=== PATIENT | female | born 1950 | race Caucasian/White ===

== ENCOUNTER 2023-03-20 09:03 | Outpatient (CLI) | payer MEDICARE, SELFPAY ==
--- NOTE | ~2023-03-20 | CT_ITS ---
CT Scan of the Chest without Contrast: Clinical Indication: Mediastinal mass Technique: Contiguous sections were acquired throughout the chest without intravenous contrast. Dose reduction technique was used on this scan by utilizing automated exposure control and iterative recon struction technique. The dose-length product (DLP) was 121.58 mGy-cm. Findings: Thyroid gland is prominent, with focal substernal extension. There is no evidence of any significant mediastinal, hilar or axillary lymphadenopathy. The mediastin al soft tissues otherwise appear normal. Small inferior pericardial effusion present. There is no evidence of pleural effusion. The lungs are clear, aside from minimal dependent atelectatic changes. Images through the upper abdomen reveal no abnormalities. Impression: Prominent thyroid gland with mild substernal extension. No other mediastinal mass evident. Small pericardial effusion. Reviewed, dictated and finalized at [facility]. Impression: Prominent thyroid gland with mild substernal extension. No other mediastinal mass evident. Small pericardial effusion.
== END 2023-03-20 09:04 | disposition home or self-care (01) ==
DX: R22.2 Localized swelling, mass and lump, trunk (principal); J90 Pleural effusion, not elsewhere classified
CPT/HCPCS: 71250

== ENCOUNTER 2023-08-13 10:43 | Emergency (ER) | payer MEDICARE, SELFPAY ==
[2023-08-13] VITALS (12 sets, daily range): BP systolic 119–159; BP diastolic 76–96; PULSE 86–107; RESP 16–30; TEMP 36.3; O2SAT 94–98
[2023-08-13 11:27] LABS: Basophils Percent Auto 0.5 % (0.2-1.2); Eosinophils Absolute Auto 0.1 K/mm3 (0-0.3); Eosinophils Percent Auto 0.8 % (0-4.4); Hematocrit 42.9 % (37.0-47.0); Hemoglobin 13.5 g/dL (12.0-15.0); Immature Granulocyte Absolute 0.02 K/mm3 (0.00-0.031); Immature Granulocyte Percent A 0.3 % (0-0.5); Lymphocytes Absolute Auto 1.51 K/mm3 (0.9-3.2); Lymphocytes Percent Auto 19.3 % (18.3-44.2); Mean Corpuscular HGB Conc 31.5 g/dl (32-36); Mean Corpuscular Hemoglobin 28.1 pg (26-34); Mean Corpuscular Volume 89.2 fl (80-100); Mean Platelet Volume 9.8 fl (7.4-10.4); Monocytes Absolute Auto 0.4 K/mm3 (0.1-0.6); Monocytes Percent Auto 5.1 % (2.6-8.5); Neutrophils Absolute Auto 5.8 K/mm3 (1.3-6.7); Platelet Count Result 322 k/mm3 (150-375); Red Blood Count 4.81 M/mm3 (4.2-5.4); Red Cell Distribution Width 13.5 % (11.5-14.5); White Blood Count 7.8 K/mm3 (4.5-10.0)
[2023-08-13 11:41] LABS: Alanine Aminotransferase 19 U/L (6-35); Albumin Level 4.6 g/dL (3.5-5.1); Alkaline Phosphatase 96 U/L (38-126); Anion Gap 15 mmol/L (8-16); Aspartate Amino Transferase 23 U/L (14-36); Bilirubin,Total 0.6 mg/dL (0.2-1.3); Blood Urea Nitrogen 25 mg/dL (7-17); Calcium 9.8 mg/dL (8.4-10.2); Carbon Dioxide 27 mmol/L (22-30); Chloride 100 mmol/L (98-107); Estimated CRCL calculation 38 ml/min; Estimated Glomerular Filt Rate > 60; Glucose 131 mg/dL (65-110); Lipase 138 U/L (23-300); Potassium 3.9 mmol/L (3.4-5.0); Sodium 142 mmol/L (137-145)
[2023-08-13 12:28] LABS: Appearance Urine Cloudy (Clear); Bacteria Urine 4+ /hpf; Bilirubin Urine 1+ (Negative); Blood Urine Negative (Negative); Color Urine Dark Yellow (Yellow); Glucose Urine UA Negative (Negative); Ketones Urine Trace mg/dL (Negative); Leukocyte Esterase Ur 2+ LEU/UL (Negative); Nitrate Urine Positive (Negative); Protein Urine 1+ mg/dL (Negative); RBC Urine 0-2 /hpf (0-2); Squamous Epithelial Cell Urine None seen /hpf (Few); WBC Urine >100 /hpf; pH Urine 5.5 (5.0-9.0)
[2023-08-13 12:32] LABS: Add Urine Microscopic? YES
--- NOTE | 2023-08-13 13:50 | ED.GENADULT ---
HPI - General Adult General Chief complaint: Nausea/Vomiting/Diarrhea Stated complaint: n/v, lethargy Time Seen by Provider: 08/13/23 13:30 History of Present Illness HPI narrative: Patient is a 73-year-old female who presents to the emergency department this morning from her extended care facility due to nausea and vomiting after eating her breakfast. Symptoms started today just after breakfast. Patient had 1 vomiting episode in the emergency department upon arrival which responded to Zofran patient has been stable since about. Patient is nonverbal at baseline with very little responses and son who is present at bedside states that this is how she normally is, some days are better than others. Patient does deny any pain at this time. The remainder the history of present illness and review of systems limited due the patient's current nonverbal status. Related Data Home Medications Medication Instructions Recorded Confirmed lisinopril 10 mg tablet mg 08/13/23 Allergies Allergy/AdvReac Type Severity Reaction Status Date / Time No Known Allergies Allergy Verified 08/13/23 11:13 Review of Systems Review of Systems: Unable to obtain a full review of systems secondary to the patient's current nonverbal status. Exam Narrative: General: Awake, afebrile, in no acute distress. HEENT: PERRL, no rhinorrhea, no post nasal drip, oropharynx clear. Neck: Trachea midline, no JVD, no lymphadenopathy. Cardiovascular: Regular rate and rhythm, no murmurs, rubs or gallops, no peripheral edema. Respiratory: Clear to auscultation bilaterally, no tachypnea, no wheezing, no rhonchi, no rubs, no respiratory distress. Abdomen: Soft, nontender, nondistended, no rebound, no guarding, no peritoneal signs. Musculoskeletal: No joint swelling or deformity, normal muscle tone. Skin: No rashes or petechia, no signs of infection. Psychiatric: Awake, normal behavior and judgment for situation. Neurological: Alert and oriented to person and place, non-verbal at baseline, however, she follows all commands and understands my instructions, nods or shakes her head. No focal deficits, spontaneously moving her extremities. Course Vital Signs Vital signs: Vital Signs Temperature 97.4 F L 08/13/23 10:43 Pulse Rate 96 08/13/23 10:43 Respiratory Rate 18 08/13/23 10:43 Blood Pressure 156/95 H 08/13/23 10:43 Pulse Oximetry 97 08/13/23 10:43 Temperature 97.4 F L 08/13/23 10:43 Pulse Rate 96 08/13/23 15:01 Respiratory Rate 17 08/13/23 15:01 Blood Pressure 120/86 08/13/23 15:01 Pulse Oximetry 97 08/13/23 15:01 Medical Decision Making MDM Narrative Medical decision making narrative: The patient was evaluated by myself in the emergency department. History is obtained from patient who is an independent historian and physical exam was performed. External medical records were reviewed at this time. IV was established and pertinent tests were ordered. Patient was administered 4 mg IV Zofran for nausea and vomiting. Laboratory results obtained revealing no acute process. Urinalysis revealed urinary tract infection With trace ketones and at this time patient was administered a 500 fluid bolus with NS and 1 g of IV Rocephin. Differential diagnosis considerations include Acute gastroenteritis, pancreatitis and cholecystitis however unlikely given normal lipase and a bilirubin and the lack of abdominal pain. addition of the factors include influenza and COVID. I have evaluated and discussed social determinants of health with the patient that could potentially impact subsequent diagnosis and treatment plans. On repeat assessment of the patient, reevaluation revealed that the patient is doing well and is in no acute distress. Patient symptoms have improved since she arrived to our emergency department. Repeat vital signs were all reviewed and noted to be stable. Differential diagnosis and treatment plan were disc
[2023-08-13] MEDS: ONDANSETRON INJ 4 MG/2 ML VIAL IV PUSH (13:54)
[2023-08-13] MEDS: SODIUM CHLORIDE 0.9% IV 500 ML 999 ML IV CONT (13:54)
[2023-08-13 14:48] LABS: Influenza A QL RT-PCR Negative (Negative); Influenza B QL RT-PCR Negative (Negative); RSV RNA, RT-PCR Negative (Negative); SARS-CoV-2 RNA PCR Negative (Negative)
--- NOTE | 2023-08-13 16:30 | PC.NURSE ---
SON ERLINDA RODARTE STATES HE IS UNABLE TO TAKE HIS MOTHER BACK TO [place] IN HIS VEHICLE. HE STATES SHE HAS NO CLOTHES AND HE WOULDN'T BE ABLE TO GET HER INTO HIS SUV. I EXPLAINED THAT WE COULD ASSIST INTO THE VEHICLE AND [facility] COULD HELP GET HER OUT AND I ALSO INFORMED HIM THAT SHE DOESN'T MEET [facility]ITER[facility] FOR MEDICAL NECESSITY TRANSPORTATION. HE STATED SHE WILL GET A BILL FOR THE RIDE IN SO WHAT IS THE DIFFERENCE IN GETTING A BILL FOR THE RIDE HOME? I ADVISED HIM ON THE DIFFERENCE ON EMS CALL VS ROUTINE TRANSPORT AND HE STILL REQUESTS THAT WE ARRANGE TRANSPORTATION. JAILENE CHARGE NURSE MADE AWARE.
== END 2023-08-13 17:30 ==
PROVIDERS: Student in an Organized Health Care Education/Training Program; Emergency Provider Emergency Medicine; PCP Hospitalist
DX: N39.0 Urinary tract infection, site not specified (principal); R11.2 Nausea with vomiting, unspecified; Z79.899 Other long term (current) drug therapy; Z20.822 Contact with and (suspected) exposure to COVID-19
CPT/HCPCS: 36415; 80053; 81001; 83690; 85025; 87077; 87086; 87186; 87637; 96365; 96375; 99284; J0696; J2405; J7040

== ENCOUNTER 2024-02-13 08:14 | Outpatient (CLI) | payer MEDICARE, SELFPAY ==
--- NOTE | ~2024-02-13 | CT_ITS ---
CT of the Abdomen and Pelvis: Indication: Abnormal weight loss Technique: 2.5 mm axial scans were obtained through the abdomen and pelvis following intravenous adm inistration of 100 cc of Omnipaque 350. Dose reduction technique was used on this scan by utilizing a utomated exposure control and iterative reconstruction technique. The dose-length product (DLP) was 4 30.03 mGy-cm. Findings: Scans through the lung bases demonstrates small pericardial effusion. The liver, spleen, adrenals and kidneys are within normal limits. Radiolucent gallstones present. The re is a 13 mm hypodense, possibly cystic mass at the pancreatic body (axial image 77). There are athe rosclerotic calcifications of the aorta. No lymphadenopathy. No bowel obstruction or bowel wall thickening. There is no evidence to suggest acute appendicitis. Images through the pelvis were performed. Urinary bladder unremarkable. No adnexal mass seen. No asci lucas. Impression: Cholelithiasis. 13 mm hypodense, possibly cystic mass of the pancreas body. This is most likely a low malignant poten tial lesion, however follow-up pre and postcontrast MR should be considered to further evaluate. Small pericardial effusion. Reviewed, dictated and finalized at [facility]. Impression: Cholelithiasis. 13 mm hypodense, possibly cystic mass of the pancreas body. This is most likely a low malignant potential lesion, however follow-up pre and postcontrast MR sh ould be considered to further evaluate. Small pericardial effusion.
[2024-02-13 08:45] LABS: Estimated Glomerular Filt Rate > 60
== END 2024-02-13 08:15 | disposition home or self-care (01) ==
LOC: ANHIMG 08:17
PROVIDERS: PCP Family Medicine; Visit Provider Nurse Practitioner Family
DX: K86.2 Cyst of pancreas (principal); I31.39 Other pericardial effusion (noninflammatory)
CPT/HCPCS: 74177; Q9967

== ENCOUNTER 2024-02-28 08:59 | Outpatient (CLI) | payer MEDICARE, SELFPAY ==
--- NOTE | ~2024-02-28 | MR_ITS ---
EXAMINATION: MR MRCP wo/w con/w 3D wo ind DATE: 02/28/2024 11:04 INDICATION: Cyst of pancreas. TECHNIQUE: Magnetic resonance imaging (MRI) of the abdomen was performed without and with 11 mL Multi Chava intravenous contrast. Sequences included coronal T2-weighted FS FSE, coronal T2-weighted FSE, a xial T1-weighted LAVA, coronal FS FIESTA, axial dual-echo T1-weighted SPGR, coronal lava-FLEX, sagitt al T2-weighted FSE, axial T2-weighted FSE, and axial DWI. Thick-slab T2-weighted FSE images were obta ined for magnetic resonance cholangiopancreatography (MRCP). Maximum intensity projection 3-D reconst ructions of the volumetric data were created by the technologist. Postcontrast sequences included cor onal LAVA-flex and time course of axial T1-weighted LAVA. COMPARISON: CT abdomen and pelvis 02/13/2024 FINDINGS: ABDOMEN MRI: The liver is normal. The gallbladder is normal in size and filled with gallstones. The s pleen is normal. There are approximately 3 cystic lesions of the pancreas measuring up to 18 mm. The largest cyst does not communicate with the main pancreatic duct. The pancreatic duct is normal in memo iber. There is thickening of the adrenal glands, likely benign. The kidneys are normal. There are no dilated loops of bowel. A small sliding hiatal hernia. ABDOMEN MRCP: The common duct is normal and measures 4 mm. No choledocholithiasis. IMPRESSION: 1. Cystic lesions of the pancreas measuring up to 18 mm. The differential diagnosis includes pseudocy st, intraductal papillary mucinous neoplasm (IPMN), mucinous cystic neoplasm (MCN), serous cystadenom a, and neuroendocrine tumor. Abdomen MRI without and with contrast is recommended 6 months. 2. Cholelithiasis. 3. Small sliding hiatal hernia. Reviewed, dictated and finalized at [facility]. IMPRESSION: 1. Cystic lesions of the pancreas measuring up to 18 mm. The differential diagn osis includes pseudocyst, intraductal papillary mucinous neoplasm (IPMN), mucin ous cystic neoplasm (MCN), serous cystadenoma, and neuroendocrine tumor. Abdome n MRI without and with contrast is recommended 6 months. 2. Cholelithiasis. 3. Small sliding hiatal hernia.
== END 2024-02-28 09:00 | disposition home or self-care (01) ==
PROVIDERS: PCP Family Medicine; Visit Provider Nurse Practitioner Family
DX: K86.2 Cyst of pancreas (principal); K80.20 Calculus of gallbladder without cholecystitis without obstruction; K44.9 Diaphragmatic hernia without obstruction or gangrene
CPT/HCPCS: 74183; 76376; A9577

== ENCOUNTER 2024-06-03 01:21 | Day surgery (SDC) | payer MEDICARE, SELFPAY ==
[2024-05-29 13:34] VITALS: BMI 21.0
[2024-06-03] VITALS (10 sets, daily range): BP systolic 111–142; BP diastolic 60–97; PULSE 70–106; RESP 18–24; TEMP 36.2; O2SAT 94–100
[2024-06-03] MEDS: fentaNYL CITRATE INJ (*CRX) 100 MCG/2 ML VIAL 25 MCG IV PUSH (11:59)
--- NOTE | 2024-06-03 12:00 | SUR.PREOP ---
Patient recieved from Juanita CALDERON from half-way. Patient taken back to the department and immediately began crying. Nods that she is not anxious or scared. I asked if she was hurting and she motioned to her left hip. Patient was helped to the stretcher and given warm blankets and pillows. I call the half-way and they said she has not fallen but can be tearful at times. Patient still crying and complaining of pain- new orders received.
--- NOTE | 2024-06-03 12:29 | WPDHPUPDATE1 ---
History and Physical Update Update Date/Time: 06/03/24 12:29 History and Physical has been reviewed, including an updated exam of the patient. There are NO changes in the patient's condition. Risks, benefits, and alternatives have been discussed and questions answered. Patient agrees to proceed with procedure.
[2024-06-03] MEDS: LACTATED RINGERS 1,000 ML 150 ML IV CONT (12:30)
--- NOTE | 2024-06-03 12:36 | WPDANESEPPF ---
Anes - Initial Pre Proc Eval Procedure: Operation Date: 06/03/24 13:00 Proposed Procedures p Esophagogastroduodenoscopy & Colonoscopy - Jasen Rivera MD Date/Time: 06/03/24 12:36 Surgeon: Jasen Rivera MD Pre Op Diagnosis: Anemia, Abnormal wt. loss Patient Data Age: 73 Gender: F Height: 1.57 m Weight: 47.1 kg Last Vital Signs Temp 97.1 F L 06/03/24 11:44 Pulse 70 06/03/24 11:44 Resp 18 06/03/24 11:44 BP 142/63 H 06/03/24 11:44 Pulse Ox 94 06/03/24 11:44 O2 Del Method Room Air 06/03/24 11:44 Allergies Allergy/AdvReac Type Severity Reaction Status Date / Time No Known Allergies Allergy Verified 06/03/24 11:42 Home Medications Medication Instructions Recorded Confirmed Type acetaminophen 650 mg 650 mg PO Q12H pain 01/31/24 06/03/24 History tablet,extended release bisacodyl 10 mg rectal suppository 10 mg RECTAL DAILY PRN Constipation 01/31/24 06/03/24 History bisacodyl 10 mg/30 mL enema (Fleet 5 mg RECTAL DAILY PRN Constipation 01/31/24 06/03/24 History Bisacodyl) cholecalciferol (vitamin D3) 10 10 mcg PO DAILY 01/31/24 06/03/24 History mcg (400 unit) capsule ferrous sulfate 325 mg (65 mg 325 mg PO DAILY 01/31/24 06/03/24 History iron) tablet glucagon HCl 1 mg solution for 1 mg subcut Q20M PRN Hypoglycemia 01/31/24 06/03/24 History injection (Glucagon (HCl) Emergency Kit) lisinopril 10 mg tablet 10 mg PO DAILY 01/31/24 06/03/24 History magnesium hydroxide 400 mg/5 mL 30 ml PO DAILY PRN Constipation 01/31/24 06/03/24 History oral suspension (Milk of Magnesia) multivitamin 1 tablet PO DAILY 01/31/24 06/03/24 History polyethylene glycol 3350 17 17 g PO DAILY 01/31/24 06/03/24 History gram/dose oral powder sennosides 8.6 mg capsule (senna) 8.6 mg PO DAILY 01/31/24 06/03/24 History atorvastatin 10 mg tablet 10 mg PO HS 05/29/24 06/03/24 History magnesium citrate (Citroma oral 300 ml PO DAILY PRN Constipation 05/29/24 06/03/24 History solution) phenol 1.4 % mucosal aerosol spray 2 spray mucous membrane Q2H PRN 05/29/24 06/03/24 History Sore Throat Patient hx anesthesia problems: none Family hx anesthesia problems: none Results Review: All pre-operative results and documents have been reviewed as part of the pre-operative evaluation. [facility] Past Medical History Medical History Diabetes Dysphagia History of hypertension Social History Social History Smoking status: Former smoker Alcohol intake: never Substance use: never Living arrangements: assisted Spiritual care concerns: No Anes - Eval Final PreProcedure Day of Procedure 06/03/24 12:36 Patient weight: normal Heart: regular rate and rhythm Lungs: clear to auscultation Airway: Mallampati scale class II Neurological: alert and oriented Last oral intake: >/= 8 hours ASA classification: III Emergent: no Anesthetic plan: proceed Anesthesia type and monitoring: general GIVS and standard monitoring Results Review: All pre-operative results and documents have been reviewed as part of the pre-operative evaluation. Informed Consent: The patient's anesthetic plan and its attendant risks and benefits were discussed with the patient/family/POA. Questions were solicited and answers provided to the satisfaction of the patient/family/POA.
--- NOTE | 2024-06-03 12:52 | SUR.OPER ---
EGD start 1241 end 1247, Colonoscopy start 1256
[2024-06-03] MEDS: racEPINEPHrine 2.25% NEBU SOLN 0.5 ML VIAL.NEB INHALATION (13:50)
[2024-06-03] MEDS: KETOROLAC 15 MG/ML VIAL (*BKC) IV PUSH (14:01)
--- NOTE | 2024-06-03 14:51 | SUR.PHASEII ---
1306: PT INTO RECOVERY WITH 6L SIMPLE FACE MASK, PT HAD SMALL LARYNGOSPASM, COMPOSING MACHINE OPERATOR JAW THRUST PT WITH PT RELIEF. DR TIAN MADE AWARE, NO NEW ORDERS. 1320: PT SLEEPING, AROUSES EASILY, 02 REMOVED AND REMAINS 100% ON ROOM AIR. PT OPENS EYES AND ABLE TO RESPOND HER NAME. 1330: PT HAD LARYNGOSPASM, PT REPOSITIONED AND 02 PUT BACK ON PT, PT RECOVERED QUICKLY, NURSE REMAINS AT BEDSIDE. PT AROUSES EASILY, GRIMACING, CRYING, AND COMPLAINING OF LOWER BACK PAIN. PT NOTICEABLY HOLDING BREATH WHILE CRYING. PT OFTEN REMINDED TO TAKE A BREATH. DR TIAN NOTIFIED AND NEW ORDERS RECEIVED. RESPIRATORY CALLED AND NOTIFIED OF NEW ORDERS. 1345: RESPIRATORY HERE, SEEING PT, AND GIVING MEDS ORDERED. DR TIAN HERE SEEING PT AND NEW ORDERS RECEIVED FOR PT PAIN. 1405: PT GIVEN TORADOL ORDERED. 1415: PT RESTING QUIETLY, 100% ON ROOM AIR, NO FURTHER LARYNGOSPASM OR HOLDING OF BREATH. DR JULIAN HERE SEEING PT. NO NEW ORDERS. 1440: ARCAELI CASINO CONTROLLER CALLED AND GIVEN REPORT, NOTIFIED OF PT'S PRIOR COMPLAINTS OF PAIN & TREATMENT OF PAIN, PT AT THIS TIME UP IN WHEELCHAIR & DRESSED WITHOUT ANY SIGNS OF DISCOMFORT, PT BREATHING ADEQUATELY WITHOUT CONCERNS, ARACELI NOTIFIED OF PT PROCEDURE FINDINGS AND DISCHARGE INSTRUCTIONS, STATES UNDERSTANDING AND THAT PT IS OFTEN TEARY AT FACILITY. AWAITING PT RIDE AT THIS TIME. 1500: PT DISCHARGED PER [facility] WITH DISCHARGE INSTRUCTIONS.
== END 2024-06-03 15:00 | disposition home or self-care (01) ==
PROVIDERS: PCP Family Medicine; Referring Provider Nurse Practitioner Family; Visit Provider Internal Medicine Gastroenterology
PROC: 0DJ08ZZ Inspection of Upper Intestinal Tract, Via Natural or Artificial Opening Endoscopic (ICD-10-PCS; CPT 43235; principal; 2024-06-03 13:00)
DX: D64.9 Anemia, unspecified (principal); D12.2 Benign neoplasm of ascending colon; D12.3 Benign neoplasm of transverse colon; K57.30 Diverticulosis of large intestine without perforation or abscess without bleeding; F03.90 Unspecified dementia, unspecified severity, without behavioral disturbance, psychotic disturbance, mood disturbance, and anxiety; K22.2 Esophageal obstruction; K44.9 Diaphragmatic hernia without obstruction or gangrene; E11.9 Type 2 diabetes mellitus without complications; I10 Essential (primary) hypertension; Z87.891 Personal history of nicotine dependence
CPT/HCPCS: 45385; 43249; 88305; 94640; C1726; J1596; J1885; J2704; J3010; J7120

== ENCOUNTER 2025-05-16 21:22 | Emergency (ER) | payer MEDICARE, SELFPAY ==
[2025-05-16] VITALS (12 sets, daily range): BP systolic 129–159; BP diastolic 64–75; PULSE 67–100; RESP 12–21; TEMP 36.8; O2SAT 92–97
--- NOTE | ~2025-05-16 | CT_ITS ---
CT of the Abdomen and Pelvis: Indication: Abdominal pain Technique: 2.5 mm axial scans were obtained through the abdomen and pelvis following intravenous adm inistration of 100 cc of Omnipaque 350. Dose reduction technique was used on this scan by utilizing a utomated exposure control and iterative reconstruction technique. The dose-length product (DLP) was 6 17.27 mGy-cm. COMPARISON: 02/13/2024 Findings: Scans through the lung bases are unremarkable. Cholelithiasis noted. There is probable minimal intrahepatic biliary dilatation. Common bile duct is nondilated. The spleen, adrenals and kidneys are within normal limits. There is a 9 mm cystic mass at the pancreatic body/tail junction. No evidence of aortic aneurysm. No lymphadenopathy. No bowel obstruction or bowel wall thickening. There is no evidence to suggest acute appendicitis. Images through the pelvis were performed. Urinary bladder unremarkable. No pelvic mass seen. No ascit es. Impression: Cholelithiasis. Minimal intrahepatic biliary dilatation, nonspecific. Correlate with LFTs. 9 mm cystic mass of the pancreas, as detailed above, stable from prior exam, most likely benign. Reviewed, dictated and finalized at location . Impression: Cholelithiasis. Minimal intrahepatic biliary dilatation, nonspecific. Correlate with LFTs. 9 mm cystic mass of the pancreas, as detailed above, stable from prior exam, mo st likely benign.
--- NOTE | 2025-05-16 21:37 | ED_ITS ---
HPI - Nausea/Vomiting/Diarrhea General Chief complaint: Nausea/Vomiting/Diarrhea Stated complaint: N/V AFTER DINNER Time Seen by Provider: 05/16/25 21:26 History of Present Illness HPI Narrative: 74-year-old female with history of hypertension, diabetes, hiatal hernia and esophageal ring seen on endoscopy last year. Patient presents to the emergency department with abdominal discomfort nausea vomiting. Patient states that her symptoms started this afternoon. She was eating dinner. Noticed that she was feeling nauseous and vomited several times. Had some diffuse abdominal discomfort but mostly points in her periumbilical region. No chest pain shortness a breath. No fever chills. No flank pain. No traumatic injuries. She was otherwise in her normal state of health. Patient resides at a skilled care facility at this time. Slow to respond to questions but not having any neurological deficits otherwise. Related Data Home Medications ?Medication ?Instructions ?Recorded ?Confirmed ?Last Taken ?Type acetaminophen 650 mg 650 mg PO Q12H pain 01/31/24 06/03/24 06/02/24 History tablet,extended release bisacodyl 10 mg rectal suppository 10 mg RECTAL DAILY PRN Constipation 01/31/24 06/03/24 06/02/24 History bisacodyl 10 mg/30 mL enema (Fleet 5 mg RECTAL DAILY PRN Constipation 01/31/24 06/03/24 06/02/24 History Bisacodyl) cholecalciferol (vitamin D3) 10 10 mcg PO DAILY 01/31/24 06/03/24 06/02/24 History mcg (400 unit) capsule ferrous sulfate 325 mg (65 mg 325 mg PO DAILY 01/31/24 06/03/24 06/02/24 History iron) tablet glucagon HCl 1 mg solution for 1 mg subcut Q20M PRN Hypoglycemia 01/31/24 06/03/24 06/02/24 History injection (Glucagon (HCl) Emergency Kit) lisinopril 10 mg tablet 10 mg PO DAILY 01/31/24 06/03/24 06/02/24 History magnesium hydroxide 400 mg/5 mL 30 ml PO DAILY PRN Constipation 01/31/24 06/03/24 06/02/24 History oral suspension (Milk of Magnesia) multivitamin 1 tablet PO DAILY 01/31/24 06/03/24 06/02/24 History polyethylene glycol 3350 17 17 g PO DAILY 01/31/24 06/03/24 06/02/24 History gram/dose oral powder sennosides 8.6 mg capsule (senna) 8.6 mg PO DAILY 01/31/24 06/03/24 06/02/24 History atorvastatin 10 mg tablet 10 mg PO HS 05/29/24 06/03/24 06/02/24 History magnesium citrate (Citroma oral 300 ml PO DAILY PRN Constipation 05/29/24 06/03/24 06/02/24 History solution) phenol 1.4 % mucosal aerosol spray 2 spray mucous membrane Q2H PRN 05/29/24 06/03/24 06/02/24 History Sore Throat Allergies Allergy/AdvReac Type Severity Reaction Status Date / Time No Known Allergies Allergy Verified 06/03/24 11:42 Review of Systems 2 Review of Systems: As reviewed above in [facility] Past Medical History Medical History Dysphagia History of hypertension Diabetes Social History Social History Smoking status: Former smoker Alcohol intake: never Substance use: never Living arrangements: [facility] Spiritual care concerns: No Exam 2 Narrative: GENERAL: [Well-appearing, well-nourished, and in no acute distress.] HEAD: [Normocephalic, atraumatic.] EYES: [PERRLA and EOMI.] ENT: Nares clear, no rhinorrhea or epistaxis. Mucous membranes moist. NECK: Supple. CHEST: [Clear to auscultation. No respiratory distress.] HEART: [Regular rate and rhythm]. No murmur heard. [Normal peripheral pulses.] ABDOMEN: Soft and nondistended, mildly tender in the periumbilical region, no rigidity or guarding EXTREMITIES: Normal range of motion. [No edema.] SKIN: Warm, dry, no rash. NEURO: [No focal deficits]. Alert and oriented [x3.] PSYCH: [Normal mood and affect.] Course Vital Signs Vital signs: Vital Signs Temperature 36.8 C 05/16/25 21:23 Pulse Rate 70 05/16/25 21:23 Respiratory Rate 20 05/16/25 21:23 Blood Pressure 129/64 05/16/25 21:23 Pulse Oximetry 96 05/16/25 21:23 Oxygen Delivery Room Air 05/16/25 21:23 Temperature 36.8 C 05/16/25 21:23 Pulse Rate 78 05/17/25 03:06 Respiratory Rate 18 05/17/25 03:06 Blood Pressure 149/78 H 05/17/25 03:06 Pulse Oximetry 100 05/17/25 03:06 Oxygen Delivery Room Air 05/16/25 21:23 MDM - Nausea/Vomiting/Diarrhea MDM Narrative Medical decision making narrative: 74-year-old female with history of hypertension, diabetes, hiatal hernia and esophageal ring seen on endoscopy last year. Patient presents to the emergency department with abdominal discomfort nausea vomiting. Patient states that her symptoms started this afternoon. She was eating dinner. Noticed that she was feeling nauseous and vomited several times. Had some diffuse abdominal discomfort but mostly points in her periumbilical region. No chest pain shortness a breath. No fever chills. No flank pain. No traumatic injuries. She was otherwise in her normal state of health. Patient resides at a skilled care facility at this time. Slow to respond to questions but not having any neurological deficits otherwise. Patient is not in any acute physical or respiratory distress with normal vital signs here. No tachycardia, fever, hypoxemia or blood pressure concerns. Minimally tender in the periumbilical region. No chest pain shortness a breath. No rigidity or guarding her abdomen is soft and nondistended. Suspect gastroenteritis, gastritis, low suspicion intra-abdominal infectious process such as appendicitis, cholecystitis, diverticulitis. Given patient's age and risk factors a broad workup was ordered including CBC, CMP, lipase, urinalysis. CT scan with IV contrast obtained of the abdomen pelvis. She was given morphine fluids and Zofran. CT scan of the abdomen pelvis shows some cholelithiasis and a small hiatal hernia with diverticulosis without diverticulitis. No bowel obstruction. No acute findings overall per radiology interpretation. Workup shows a slight leukocytosis but no anemia. Normal platelet count. Electrolytes are unremarkable. Normal creatinine. LFTs are mildly elevated, lipase is normal. Urinalysis negative for infection. Patient was re-evaluated and comfortable in the bed. She did not actually get any pain control medications such as the morphine that was ordered given that she stated she was no longer having any pain upon nurse arrival. Has not had recurrence of symptoms and has not read store vomited while in the emergency department. Patient does have mildly elevated LFTs and evidence of gallstones without cholecystitis. She will have to follow up with General surgery and given clinic information. Given return precautions and prescriptions for Zofran and Bentyl as needed. Safe for discharge at this time. Given return precautions. Medical Records Attestation: I reviewed the patient's medical records. Lab Data Attestation: I reviewed the patient's lab results. 05/16/25 22:27 05/16/25 22:27 Labs: Lab Results 05/16/25 05/17/25 Range/Units 22:27 00:13 WBC 12.5 H (4.5-10.0) K/mm3 RBC 4.33 (4.2-5.4) M/mm3 Hgb 12.1 (12.0-15.0) g/dL Hct 38.9 (37.0-47.0) % MCV 89.8 (80-100) fl MCH 27.9 (26-34) pg MCHC 31.1 L (32-36) g/dl RDW 13.6 (11.5-14.5) % Plt Count 245 (150-375) k/mm3 MPV 9.3 (7.4-10.4) fl Immature Gran % (Auto) 0.4 (0-0.5) % Neut % (Auto) 87.8 H (45.5-73.1) % Lymph % (Auto) 5.7 L (18.3-44.2) % [place] % (Auto) 5.4 (2.6-8.5) % Eos % (Auto) 0.2 (0-4.4) % Baso % (Auto) 0.5 (0.2-1.2) % Lymph # (Auto) 0.71 L (0.9-3.2) K/mm3 [place] # (Auto) 0.7 H (0.1-0.6) K/mm3 Eos # (Auto) 0.0 (0-0.3) K/mm3 Baso # (Auto) 0.1 (0.0-0.1) K/mm3 Abs Immat Gran (auto) 0.05 H (0.00-0.031) K/mm3 Absolute Neuts (auto) 11.0 H (1.3-6.7) K/mm3 Absolute Nucleated RBC 0.000 (0.0-0.012) K/mm3 Nucleated RBC % 0.0 (0.0-0.2) % Sodium 137 (137-145) mmol/L Potassium 3.8 (3.4-5.0) mmol/L Chloride 104 (98-107) mmol/L Carbon Dioxide 25 (22-30) mmol/L Anion Gap 8 (4-12) mmol/L BUN 21 H (7-17) mg/dL Creatinine 0.78 (0.7-1.0) mg/dL Estim Creat Clear Calc 43 ml/min Estimated GFR > 60 (59 - ) Glucose 177 H (65-110) mg/dL Calcium 8.8 (8.4-10.2) mg/dL Total Bilirubin 0.7 (0.2-1.3) mg/dL AST 437 H (14-36) U/L ALT 212 H (6-35) U/L Alkaline Phosphatase 134 H (38-126) U/L Total Protein 7.1 (6.3-8.2) g/dL Albumin 4.0 (3.5-5.1) g/dL Lipase 107 (23-300) U/L Urine Color Yellow (Yellow) Urine Appearance Clear (Clear) Urine pH 8.0 (5.0-9.0) Ur Specific [place] 1.019 (1.001-1.035) Urine Protein Negative (Negative) mg/dL Urine Glucose (UA) Negative (Negative) mg/dL Urine Ketones Negative (Negative) mg/dL Ur Blood (Man) Negative (Negative) Urine Nitrate Negative (Negative) Urine Bilirubin Negative (Negative) Urine Urobilinogen 1.0 (<2.0) mg/dL Leukocyte Esterase Rfl Negative (Negative) KARISSA/UL Imaging Data Attestation: I personally reviewed and interpreted this imaging study as follows: My impression: No acute finding. Gallstones, small hiatal hernia, diverticulosis. Discharge Plan Discharge Clinical Impression: Symptomatic cholelithiasis, Elevated LFTs Patient Disposition: Home Condition: Stable Instructions: Antibiotic Form, Biliary Colic (ED), Gallstones (ED), Clear Liquid Diet (ED), Acute Nausea and Vomiting (ED), Abdominal Pain (ED) Additional Instructions: You have some gallstones that do not seem to be infected or causing any sort of significant obstruction. No signs of cholecystitis. Your liver function panel is mildly elevated secondary to the gallstones. No acute abnormal findings on the CT scan otherwise. Symptoms are controlled at this time and you can safely go home and follow-up with the general surgeon regarding the gallstones for elective surgery if needed. If you have recurrence of symptoms, severe pain, intractable nausea vomiting, fevers or any other concerns please return to the emergency department at that time. Maintain a bland/liquid diet for better symptom control as symptoms will recur with eating heavy or greasy foods. Patient Language: Singaporean Prescriptions: New dicyclomine 20 mg tablet 20 mg PO TID PRN (Reason: abdominal pain) Qty: 14 0RF ondansetron 4 mg tablet,disintegrating 4 mg PO Q8H PRN (Reason: nausea and vomiting) Qty: 20 0RF No Action acetaminophen 650 mg tablet extended release 650 mg PO Q12H bisacodyl 10 mg suppository 10 mg RECTAL DAILY PRN (Reason: Constipation) ferrous sulfate 325 mg (65 mg iron) tablet 325 mg PO DAILY Fleet Bisacodyl 10 mg/30 mL enema 5 mg RECTAL DAILY PRN (Reason: Constipation) lisinopril 10 mg tablet 10 mg PO DAILY glucagon HCl [Glucagon (HCl) Emergency Kit] 1 mg recon soln 1 mg subcut Q20M PRN (Reason: Hypoglycemia) Rx Instructions: until target blood sugar attained magnesium hydroxide [Milk of Magnesia] 400 mg/5 mL suspension 30 ml PO DAILY PRN (Reason: Constipation) multivitamin Tablet 1 tablet PO DAILY polyethylene glycol 3350 17 gram/dose powder 17 g PO DAILY senna 8.6 mg capsule 8.6 mg PO DAILY cholecalciferol (vitamin D3) 10 mcg (400 unit) capsule 10 mcg PO DAILY atorvastatin 10 mg tablet 10 mg PO HS magnesium citrate [Citroma] Solution 300 ml PO DAILY PRN (Reason: Constipation) Chloraseptic Mouth Pain [place] 1.4 % Aerosol,[place] 2 spray MUCOUS MEMBRANE Q2H PRN (Reason: Sore Throat) Follow-up/Referrals: Shad Titus MD [Primary Care Provider] - Cm King DO [Physician] - 1 Week (Symptomatic cholelithiasis) Time of Disposition: 01:51
[2025-05-16] MEDS: LACTATED RINGERS 1,000 ML 999 ML IV CONT (21:43)
--- OUTSIDE RECORDS SUMMARY | 2025-05-16 22:22 | XMS_ITS | Clinical Summary ---
Author Organization [facility] [employer] Address [address] [place] [address] Care Team Providers Care Biodiesel Product Development Manager Name Role Phone Jimmy Ortiz MD Primary Care Provider [phone] Source Comments [facility] [employer],non-owned Affiliates and Associated Physician Practices is amultiple site organization consisting of ambulatory clinics and hospital sitesin [place], [place], [place] and [place]. This disclosure is being madepursuant to the Care Everywhere program and may not contain all information available regarding this patient. Last updated 18.[employer] Allergies No known active allergies Medications * Be aware that medications may not be up to date on this document. Alwaysverify current medications with the patient. acetaminophen (Tylenol) 325 MG tablet Take 2 (two) tablets by mouth every 6 hours as needed Maximum allowable Acetaminophen amount = 4 Grams (4000 mg) / 24 hours. 2 Active lisinopril (Prinivil; Zestril) 10 MG tablet Take 1 (one) tablet by mouth once daily 2 Active polyethylene glycol 3350 (Miralax) 17 g packet Take 17 (seventeen) g by mouth once daily 2 Active senna-docusate (Senokot-S) 8.6-50 MG tablet Take 1 (one) tablet by mouth once daily 2 Active alendronate (Fosamax) 10 MG tablet Take 1 (one) tablet by mouth daily before breakfast 2 Active Additional Information Patient not taking.Reported on 11/12/2022 vitamin D3 (Cholecalcifer ol) 25 MCG (1000 UNITS) tablet Take 1 (one) tablet by mouth once daily 2 Active ferrous sulfate 325 (65 FE) MG tablet Take 1 (one) tablet by mouth once daily Active Active Problems Problem Noted Date Diagnosed Date Age-related osteoporosis with current pathologic al fracture 06/29/2022 Elevated blood pressure reading 06/24/2022 Fall 06/24/2022 Closed displaced fracture of surgical neck of le ft humerus 06/24/2022 Family History Medical History Relation Name Comments Dementia Mother Relation Name Status Comments Mother Social History Tobacco Use Types Packs/Day Years Used Date Smoking Tobacco: Never Cigarettes Smokeless Tobacco: Never Snuff Tobacco Cessation:Counseling Given: Not Answered AUDIT-C Answer Date Recorded Q1: How often do you have a drink containing alcohol? Never 06/25/2022 Q2: How many drinks containi ng alcohol do you have on a typical day when you are drinking? Patient does not drink Q3: How often do you have si x or more drinks on one occasion? 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 Height 157.5 cm (5' 2) 06/24/2022 2:00 PM CDT Body Mass Index 22.86 06/24/2022 2:00 PM CDT Plan of Treatment Health Maintenance Due Date Last Done Comments BONE DENSITY TESTING 1950 COLOGUARD (AGES 45-75) - COL ON CA SCREENING 1949 COLON MONITORING 1949 COLONOSCOPY - COLON CA SCREENING 1949 CT COLONOGRAPHY - COLON CA SCREENING 1950 Colorectal Cancer Screening 1949 FIT - COLON CA SCREENING 1949 FLEX SIG - COLON CA SCREENING 1949 LIPID TESTING 1950 MAMMOGRAM 1950 MEDICARE AWV 12 MONTHS 1949 HEPATITIS C SCREENING 08/01/1967 DTAP/TDAP/TD VACCINES (1 - Tdap) 1968 PNEUMOCOCCAL VACCINE 50+ (1 of 1 - PCV) 1999 ZOSTER VACCINE (1 of 2) 1999 COVID-19 VACCINE ( - 2023-2 5 season) 2024 Respiratory Syncytial Virus (RSV) Vaccine Pt: or over 60 yrs (1 - 1-dose 75+ series) 2024 DEPRESSION SCREENING 09/30/2024 INFLUENZA VACCINE (#1) 2025 11/02/2022 HEPATITIS B VACCINE Aged Out No longe r eligible based on patient's age to complete this topic HIB VACCINE Aged Out No longer eligi ble based on patient's age to complete this topic HPV VACCINE Aged Out No longer eligi ble based on patient's age to complete this topic MENINGOCOCCAL (Group B) VACC INE SHARED DECISION-MAKING Aged Out No longer eligibl e based on patient's age to complete this topic MENINGOCOCCAL GROUPS A/C/Y/W VACCINE Aged Out No longer eligible b ased on patient's age to complete this topic Insurance MEDICARE Member Subscriber Plan / Payer (Ef fective for All Dates) Name:Tamiko Nick Member ID:[id number] Relation to Subscriber:Self Name:Tamiko Nick Subscriber ID:[id number] Payer ID:Not on file Group ID:Not on file Type:Medicare Address: [facility] [address] [phone] ANTHEM SELF PAY NO INSURANCE Member Subscriber Plan / Payer (Ef fective for All Dates) Name:Juli Nickindio Anderson Member ID:Not on file Relation to Subscriber:Not on file Name:SANDOVALTAMIKO BRADLEY Subscriber ID:Not on file (Home) Address: [address] [place] [phone] Payer ID:Not on file Group ID:Not on file Type:Self Pay Address: [place], [place] MEDICARE Advance Directives * Full Code (Latest Code Status on File) Date Activated Date Inactivated Comments 06/24/2022 5:09 PM 06/29/2022 5:44 PM Care Teams Biodiesel Product Development Manager Relationship Specialty Start Date End Date Jimmy Ortiz MD [address] [place] [address] PCP - General Internal Medicine 06/24/22
[2025-05-16 22:35] LABS: Hematocrit 38.9 % (37.0-47.0); Hemoglobin 12.1 g/dL (12.0-15.0); Immature Granulocyte Percent A 0.4 % (0-0.5); Lymphocytes Absolute Auto 0.71 K/mm3 (0.9-3.2); Mean Corpuscular HGB Conc 31.1 g/dl (32-36); Mean Corpuscular Hemoglobin 27.9 pg (26-34); Mean Corpuscular Volume 89.8 fl (80-100); Nucleated Red Blood Cells Absolute Auto 0.000 K/mm3 (0.0-0.012); Nucleated Red Blood Cells Perc 0.0 % (0.0-0.2); Platelet Count Result 245 k/mm3 (150-375); Red Blood Count 4.33 M/mm3 (4.2-5.4); White Blood Count 12.5 K/mm3 (4.5-10.0)
[2025-05-16 22:45] LABS: Alanine Aminotransferase 212 U/L (6-35); Albumin Level 4.0 g/dL (3.5-5.1); Alkaline Phosphatase 134 U/L (38-126); Anion Gap 8 mmol/L (4-12); Aspartate Amino Transferase 437 U/L (14-36); Bilirubin,Total 0.7 mg/dL (0.2-1.3); Blood Urea Nitrogen 21 mg/dL (7-17); Calcium 8.8 mg/dL (8.4-10.2); Carbon Dioxide 25 mmol/L (22-30); Chloride 104 mmol/L (98-107); Estimated CRCL calculation 43 ml/min; Estimated Glomerular Filt Rate > 60; Glucose 177 mg/dL (65-110); Lipase 107 U/L (23-300); Potassium 3.8 mmol/L (3.4-5.0); Sodium 137 mmol/L (137-145); Total Protein 7.1 g/dL (6.3-8.2)
[2025-05-16] MEDS: ONDANSETRON INJ 4 MG/2 ML VIAL IV PUSH (22:52)
[2025-05-17] VITALS (8 sets, daily range): BP systolic 142–175; BP diastolic 75–87; PULSE 69–87; RESP 15–21; O2SAT 94–100
[2025-05-17 00:33] LABS: Add Urine Microscopic? NO; Appearance Urine Clear (Clear); Glucose Urine UA Negative (Negative); Leukocyte Esterase Ur Negative LEU/UL (Negative); Nitrate Urine Negative (Negative); Specific Grav Ur 1.019 (1.001-1.035)
[2025-05-17] MEDS: ONDANSETRON INJ 4 MG/2 ML VIAL (02:14)
--- NOTE | 2025-05-17 02:32 | PC.NURSE ---
Patient waiting for EMS to arrive to transport patient back to [place].
--- NOTE | 2025-05-17 03:06 | PC.NURSE ---
EMS here to transport patient back to the [place].
== END 2025-05-17 03:09 | disposition home or self-care (01) ==
PROVIDERS: Emergency Provider Student in an Organized Health Care Education/Training Program; PCP Family Medicine
DX: K80.20 Calculus of gallbladder without cholecystitis without obstruction (principal); R79.89 Other specified abnormal findings of blood chemistry; I10 Essential (primary) hypertension; E11.9 Type 2 diabetes mellitus without complications; Z87.891 Personal history of nicotine dependence
CPT/HCPCS: 36415; 74177; 80053; 81003; 83690; 85025; 96361; 96374; 96376; 99284; J2405; J7120; Q9967

== ENCOUNTER 2025-05-17 05:56 | Inpatient (IN) | payer MEDICARE, SELFPAY ==
[2025-05-17] VITALS (11 sets, daily range): BP systolic 163–186; BP diastolic 83–91; PULSE 65–94; RESP 16–20; TEMP 36.7–36.8; O2SAT 96–100; BMI 22.8
--- NOTE | ~2025-05-17 | US_ITS ---
EXAM: ABDOMEN ULTRASOUND HISTORY: cholelithiasis COMPARISON: Reference is made to a CT examination of the abdomen and pelvis performed less than 24 ho urs earlier. FINDINGS: LIVER: The liver is heterogeneous in echogenicity and unremarkable in size. The portal vein is patent, demonstrating hepatopedal flow. GALLBLADDER: Multiple stones are identified within the gallbladder. Moderate gallbladder wall thickening without pericholecystic fluid. No gallbladder wall hyperemia is appreciated. BILE DUCTS: Common bile duct measures 6.4mm. PANCREAS: Limited evaluation of the pancreas secondary to overlying bowel gas IMPRESSION: Limited evaluation of the pancreas secondary to overlying bowel gas Cholelithiasis, with moderate gallbladder wall thickening without pericholecystic fluid or gallbladde r wall hyperemia. Reviewed, dictated and finalized at location A. IMPRESSION: Limited evaluation of the pancreas secondary to overlying bowel gas Cholelithiasis, with moderate gallbladder wall thickening without pericholecyst ic fluid or gallbladder wall hyperemia.
--- NOTE | ~2025-05-17 | NM_ITS ---
EXAMINATION: [id number]_NM DATE: 05/18/2025 11:45 INDICATION: Possible cholecystitis COMPARISON: CT dated 05/16/2025 TECHNIQUE: 5.6 mCi Tc-99m mebrofenin (Choletec) was administered intravenously. Scintigraphic images of the abdomen were obtained for one hour.. Additional 4 hour delayed images were obtained. FINDINGS: There is normal clearance of radiotracer from the blood pool. There is homogeneous tracer uptake by the liver. Activity progresses through the common bile duct to the duodenum by 40 minutes. There is progressive activity clearance with the majority of activity seen within the bowels on the 4 hour delayed imaging. No evident activity identified in the region of the gallbladder. IMPRESSION: 1. Patent common bile duct with no evident gallbladder activity over the course of 4 hours of imaging which would be consistent with acute cholecystitis. False positives can be seen with either inadequate fasting prior to the study or prolonged fasting of greater than 24 hours. Reviewed, dictated and finalized at location A. IMPRESSION: 1. Patent common bile duct with no evident gallbladder activity over the cours e of 4 hours of imaging which would be consistent with acute cholecystitis. Fal se positives can be seen with either inadequate fasting prior to the study or p rolonged fasting of greater than 24 hours.
--- OUTSIDE RECORDS SUMMARY | 2025-05-17 06:07 | XMS_ITS | Clinical Summary ---
Author Organization [facility] [employer] Address [address] [place] [address] Care Team Providers Care Botany Professor Name Role Phone Jimmy Ortiz MD Primary Care Provider [phone] [facility] [employer],non-owned Affiliates and Associated Physician Practices is amultiple site organization consisting of ambulatory clinics and hospital sitesin [place], [place], [place] and [place]. This disclosure is being madepursuant to the Care Everywhere program and may not contain all information available regarding this patient. Last updated 18.[employer] Allergies No known active allergies Medications * [...] 56.7 kg (125 lb) 11/12/2022 1:31 PM MANAGER PSYCHOLOGY Height 157.5 cm (5' 2) 06/24/2022 2:00 [...] fective for All Dates) Name:Tamiko Nick Member ID:[id number] Relation to Subscriber:Self Name:Tamiko Nick Subscriber ID:[id number] Payer ID:Not on file Group ID:Not on file Type:Medicare Address: [facility] [address] [phone] ANTHEM SELF PAY NO INSURANCE Member Subscriber Plan / Payer (Ef fective for All Dates) Name:Juli Nickindio Anderson Member ID:Not on file Relation to Subscriber:Not on file Name:SANDOVALTAMIKO BRADLEY Subscriber ID:Not on file (Home) Address: [address] [place] [phone] Payer ID:Not on file Group ID:Not on file Type:Self Pay Address: [place], [place] MEDICARE Advance Directives * Full Code (Latest Code Status on File) Date Activated Date Inactivated Comments 06/24/2022 5:09 PM 06/29/2022 5:44 PM Care Teams Botany Professor Relationship Specialty Start Date End Date Jimmy Ortiz MD [address] [place] [address] PCP - General Internal Medicine 06/24/22
[2025-05-17] MEDS: ONDANSETRON INJ 4 MG/2 ML VIAL IV PUSH ×2 (06:10→08:01)
--- NOTE | 2025-05-17 06:33 | ED.NAVMDI ---
HPI - Nausea/Vomiting/Diarrhea General Chief complaint: Nausea/Vomiting/Diarrhea Stated complaint: vomiting Time Seen by Provider: 05/17/25 06:00 History of Present Illness HPI Narrative: 74-year-old female with history of hypertension, diabetes, hiatal hernia esophageal ring presenting with epigastric abdominal pain and nausea. She was just discharged from the facility several hours ago after symptoms were controlled and she was diagnosed with symptomatic cholelithiasis after workup showed no acute abdominal process aside from gallstones without cholecystitis and mildly elevated LFTs. She went to longterm and had an episode of nausea vomiting and the facility was concerned so they referred her back to the ER for evaluation. She is not any acute distress, awake and answering questions, slow to respond but not any significant discomfort. Points towards her epigastric region where she has pain. Soft and nondistended abdomen. Please refer to previous note from earlier today for complete details of course so far including labs and CT scan findings. Related Data Home Medications ?Medication ?Instructions ?Recorded ?Confirmed ?Last Taken ?Type acetaminophen 650 mg 650 mg PO Q12H pain 01/31/24 06/03/24 06/02/24 History tablet,extended release bisacodyl 10 mg rectal suppository 10 mg RECTAL DAILY PRN Constipation 01/31/24 06/03/24 06/02/24 History bisacodyl 10 mg/30 mL enema (Fleet 5 mg RECTAL DAILY PRN Constipation 01/31/24 06/03/24 06/02/24 History Bisacodyl) cholecalciferol (vitamin D3) 10 10 mcg PO DAILY 01/31/24 06/03/24 06/02/24 History mcg (400 unit) capsule ferrous sulfate 325 mg (65 mg 325 mg PO DAILY 01/31/24 06/03/24 06/02/24 History iron) tablet glucagon HCl 1 mg solution for 1 mg subcut Q20M PRN Hypoglycemia 01/31/24 06/03/24 06/02/24 History injection (Glucagon (HCl) Emergency Kit) lisinopril 10 mg tablet 10 mg PO DAILY 01/31/24 06/03/24 06/02/24 History magnesium hydroxide 400 mg/5 mL 30 ml PO DAILY PRN Constipation 01/31/24 06/03/24 06/02/24 History oral suspension (Milk of Magnesia) multivitamin 1 tablet PO DAILY 01/31/24 06/03/24 06/02/24 History polyethylene glycol 3350 17 17 g PO DAILY 01/31/24 06/03/24 06/02/24 History gram/dose oral powder sennosides 8.6 mg capsule (senna) 8.6 mg PO DAILY 01/31/24 06/03/24 06/02/24 History atorvastatin 10 mg tablet 10 mg PO HS 05/29/24 06/03/24 06/02/24 History magnesium citrate (Citroma oral 300 ml PO DAILY PRN Constipation 05/29/24 06/03/24 06/02/24 History solution) phenol 1.4 % mucosal aerosol spray 2 spray mucous membrane Q2H PRN 05/29/24 06/03/24 06/02/24 History Sore Throat Allergies Allergy/AdvReac Type Severity Reaction Status Date / Time No Known Allergies Allergy Verified 06/03/24 11:42 [facility] Past Medical History Medical History Dysphagia History of hypertension Diabetes Social History Social History Smoking status: Former smoker Alcohol intake: never Substance use: never Living arrangements: longterm Spiritual care concerns: No Exam Narrative: GENERAL: [Well-appearing, well-nourished, and in no acute distress.] HEAD: [Normocephalic, atraumatic.] EYES: [PERRLA and EOMI.] ENT: Nares clear, no rhinorrhea or epistaxis. Mucous membranes moist. NECK: Supple. CHEST: [Clear to auscultation. No respiratory distress.] HEART: [Regular rate and rhythm]. No murmur heard. [Normal peripheral pulses.] ABDOMEN: Soft and nondistended, mildly tender in the epigastric region, no rigidity or guarding EXTREMITIES: Normal range of motion. [No edema.] SKIN: Warm, dry, no rash. NEURO: [No focal deficits]. Alert and oriented [x3.] PSYCH: [Normal mood and affect.] Course Vital Signs Vital signs: Vital Signs Temperature 36.8 C 05/17/25 05:56 Pulse Rate 66 05/17/25 05:56 Respiratory Rate 16 05/17/25 05:56 Blood Pressure 186/83 H 05/17/25 05:56 Pulse Oximetry 96 05/17/25 05:56 Oxygen Delivery Room Air 05/17/25 05:56 Temperature 36.8 C 05/17/25 05:56 Pulse Rate 65 05/17/25 06:06 Respiratory Rate 20 05/17/25 06:06 Blood Pressure 186/83 H 05/17/25 06:06 Pulse Oximetry 97 05/17/25 06:06 Oxygen Delivery Room Air 05/17/25 05:56 MDM - Nausea/Vomiting/Diarrhea MDM Narrative Medical decision making narrative: 74-year-old female with history of hypertension, diabetes, hiatal hernia esophageal ring presenting with epigastric abdominal pain and nausea. She was just discharged from the facility several hours ago after symptoms were controlled and she was diagnosed with symptomatic cholelithiasis after workup showed no acute abdominal process aside from gallstones without cholecystitis and mildly elevated LFTs. She went to longterm and had an episode of nausea vomiting and the facility was concerned so they referred her back to the ER for evaluation. She is not any acute distress, awake and answering questions, slow to respond but not any significant discomfort. Points towards her epigastric region where she has pain. Soft and nondistended abdomen. Please refer to previous note from earlier today for complete details of course so far including labs and CT scan findings. Ordered repeat laboratory studies to trend her LFTs and I spoke to the general surgeon Dr. King regarding patient's presentation and concern for gallstones with elevated LFTs causing symptomatology. Patient will be admitted to the hospitalist service after I spoke to Dr. Birch and General surgery will be on consult. As needed pain and nausea control medications ordered, fluids provided and she was made NPO in case of any interventions. Repeat laboratory studies pending. No indication for repeat imaging at this time. Medical Records Attestation: I reviewed the patient's medical records. Lab Data Attestation: I reviewed the patient's lab results. Imaging Data Attestation: I personally reviewed and interpreted this imaging study as follows: My impression: Cholelithiasis without cholecystitis. Small hiatal hernia, diverticulosis. Discharge Plan Discharge Clinical Impression: Symptomatic cholelithiasis, Elevated LFTs Patient Disposition: Still a Patient Condition: Stable Patient Language: Mongolian Prescriptions: No Action acetaminophen 650 mg tablet extended release 650 mg PO Q12H bisacodyl 10 mg suppository 10 mg RECTAL DAILY PRN (Reason: Constipation) ferrous sulfate 325 mg (65 mg iron) tablet 325 mg PO DAILY Fleet Bisacodyl 10 mg/30 mL enema 5 mg RECTAL DAILY PRN (Reason: Constipation) lisinopril 10 mg tablet 10 mg PO DAILY glucagon HCl [Glucagon (HCl) Emergency Kit] 1 mg recon soln 1 mg subcut Q20M PRN (Reason: Hypoglycemia) Rx Instructions: until target blood sugar attained magnesium hydroxide [Milk of Magnesia] 400 mg/5 mL suspension 30 ml PO DAILY PRN (Reason: Constipation) multivitamin Tablet 1 tablet PO DAILY polyethylene glycol 3350 17 gram/dose powder 17 g PO DAILY senna 8.6 mg capsule 8.6 mg PO DAILY cholecalciferol (vitamin D3) 10 mcg (400 unit) capsule 10 mcg PO DAILY atorvastatin 10 mg tablet 10 mg PO HS magnesium citrate [Citroma] Solution 300 ml PO DAILY PRN (Reason: Constipation) Chloraseptic Mouth Pain [place] 1.4 % Aerosol,[place] 2 spray MUCOUS MEMBRANE Q2H PRN (Reason: Sore Throat) dicyclomine 20 mg tablet 20 mg PO TID PRN (Reason: abdominal pain) Qty: 14 0RF ondansetron 4 mg tablet,disintegrating 4 mg PO Q8H PRN (Reason: nausea and vomiting) Qty: 20 0RF Follow-up/Referrals: Shad Titus MD [Primary Care Provider] - Time of Disposition: 06:36
[2025-05-17] MEDS: LACTATED RINGERS 1,000 ML 100 ML IV CONT ×2 (07:49→22:00)
[2025-05-17 08:45] LABS: Hematocrit 43.8 % (37.0-47.0); Hemoglobin 14.2 g/dL (12.0-15.0); Immature Granulocyte Percent A 0.4 % (0-0.5); Lymphocytes Absolute Auto 0.61 K/mm3 (0.9-3.2); Mean Corpuscular HGB Conc 32.4 g/dl (32-36); Mean Corpuscular Hemoglobin 28.1 pg (26-34); Mean Corpuscular Volume 86.7 fl (80-100); Nucleated Red Blood Cells Absolute Auto 0.000 K/mm3 (0.0-0.012); Nucleated Red Blood Cells Perc 0.0 % (0.0-0.2); Platelet Count Result 295 k/mm3 (150-375); Red Blood Count 5.05 M/mm3 (4.2-5.4); White Blood Count 7.6 K/mm3 (4.5-10.0)
--- NOTE | 2025-05-17 08:52 | PC.NURSE ---
0848: Pt kalee Heath Vazquez called and informed that pt is being admitted to this hospital 0850: Pt SD called and informed that pt is being admitted to this hospital
[2025-05-17 08:56] LABS: Albumin Level 4.5 g/dL (3.5-5.1); Alkaline Phosphatase 220 U/L (38-126); Anion Gap 9 mmol/L (4-12); Bilirubin,Total 0.9 mg/dL (0.2-1.3); Blood Urea Nitrogen 14 mg/dL (7-17); Calcium 9.6 mg/dL (8.4-10.2); Carbon Dioxide 32 mmol/L (22-30); Chloride 97 mmol/L (98-107); Estimated Glomerular Filt Rate > 60; Glucose 164 mg/dL (65-110); Lipase 97 U/L (23-300); Potassium 4.2 mmol/L (3.4-5.0); Sodium 138 mmol/L (137-145); Total Protein 8.2 g/dL (6.3-8.2)
--- NOTE | 2025-05-17 09:08 | P.CONGS_ITS ---
Assessment and Plan Assessment and plan (1) Symptomatic cholelithiasis: Code(s): K80.20 - Calculus of gallbladder without cholecystitis without obstruction Status: Acute Assessment and Plan: Patient presented to the ED last night with complaints of abdominal pain and nausea/vomiting after eating dinner. CT demonstrated cholelithiasis, minimal intrahepatic biliary dilation. 9 mm cystic mass of the pancreas. Labs showed white blood cell count of 12.5, now down to 7.6. Normal bilirubin, elevated liver enzymes. She was discharged from the ED after symptoms subsided, but returned a few hours later after vomiting when back at nursing facility. Patient now still complains of right-sided abdominal pain and nausea. No history of abdominal surgeries. We will continue to treat pain and nausea. Will discuss with surgeon telephone technician. Will order RUQ US and follow up with serial abdominal exams and labs. (2) Elevated LFTs: Code(s): R79.89 - Other specified abnormal findings of blood chemistry Status: Acute Plan Discussed patient's case and plan of care with Dr. King. History of Present Illness Consult details Consult date: 05/17/25 Reason for consult: other (symptomatic gallstones) Requesting physician: Osman Almendarez MD Narrative: Patient is a 74 year old female with history of hypertension, diabetes, and hiatal hernia esophageal ring who we have been asked to see in surgical consultation for symptomatic cholelithiasis. Of note, patient has a hard time speaking and is primarily nonverbal, but can answer yes or no questions and point to where her pain is. Patient presented to the ED early this morning after being discharged from the ED just several hours prior for abdominal pain, nausea and vomiting. Per chart review, patient stated that her symptoms started yesterday afternoon while eating dinner. She noted she was feeling nauseous and vomited several times. During initial workup in the ED, patient pointed to periumbilical region when asked where her pain was. CT of the abdomen and pelvis was obtained and demonstrated cholelithiasis and a small hiatal hernia with diverticulosis without diverticulitis. No bowel obstruction. Labs demonstrated an elevated white blood cell count of 12.5. Normal bilirubin, but elevated liver enzymes. Symptoms were controlled and patient was discharged back to assisted living facility with instructions to return to general surgery clinic for outpatient workup next week. During the interim, patient had another episode of nausea and vomiting in the facility was concerned so they referred her back to the ED for evaluation. Upon general surgery consultation, patient endorses right-sided abdominal pain that does not radiate to her back. Endorses that she still feels nauseous. States she has been having regular bowel movements. Denies any abdominal surgeries in the past. Labs from this morning demonstrated increasingly elevated liver enzymes. WBC 7.6. Normal lipase. PMFSH Past Medical History Medical History Dysphagia History of hypertension Diabetes Social History Social History Smoking status: Former smoker Alcohol intake: never Substance use: never Substance use type: does not use Lack of Transportation: No Lack of Food: Never True Current Housing: I Have Housing Concerned About Future Housing: No Difficulty Paying Gas/Electric Bills: No Difficulty Paying for Meds: No Currently Unemployed: No Education: High School Diploma/GED Difficulty w/ Childcare or Family Care: No Living arrangements: assisted Spiritual care concerns: No Meds Home Medications and Allergies Home Medications ?Medication ?Instructions ?Recorded ?Confirmed ?Type acetaminophen 650 mg 650 mg PO Q6H PRN pain 01/31/24 05/17/25 History tablet,extended release bisacodyl 10 mg rectal suppository 10 mg RECTAL DAILY PRN Constipation 01/31/24 05/17/25 History bisacodyl 10 mg/30 mL enema (Fleet 5 mg RECTAL DAILY PRN Constipation 01/31/24 05/17/25 History Bisacodyl) cholecalciferol (vitamin D3) 10 2,000 unit PO DAILY 01/31/24 05/17/25 History mcg (400 unit) capsule ferrous sulfate 325 mg (65 mg 325 mg PO DAILY 01/31/24 05/17/25 History iron) tablet lisinopril 10 mg tablet 10 mg PO DAILY 01/31/24 05/17/25 History magnesium hydroxide 400 mg/5 mL 30 ml PO DAILY PRN Constipation 01/31/24 05/17/25 History oral suspension (Milk of Magnesia) multivitamin 1 tablet PO DAILY 01/31/24 05/17/25 History polyethylene glycol 3350 17 17 g PO DAILY 01/31/24 05/17/25 History gram/dose oral powder sennosides 8.6 mg capsule (senna) 8.6 mg PO DAILY 01/31/24 05/17/25 History atorvastatin 10 mg tablet 10 mg PO HS 05/29/24 05/17/25 History magnesium citrate (Citroma oral 300 ml PO DAILY PRN Constipation 05/29/24 05/17/25 History solution) cyanocobalamin (vitamin B-12) 1,000 mcg PO DAILY 05/17/25 05/17/25 History 1,000 mcg capsule dicyclomine 20 mg tablet 20 mg PO TID PRN abdominal pain 05/17/25 05/17/25 Rx #14 tabs ondansetron 4 mg disintegrating 4 mg PO Q6-8H PRN nausea and 05/17/25 05/17/25 History tablet vomiting sertraline 25 mg tablet 25 mg PO DAILY 05/17/25 05/17/25 History Allergies Allergy/AdvReac Type Severity Reaction Status Date / Time No Known Allergies Allergy Verified 05/17/25 07:51 Vital Signs Vital Signs - 24 hr 05/17/25 05:56 05/17/25 06:06 05/17/25 07:50 Temperature 98.2 F Pulse Rate 66 65 92 Respiratory Rate 16 20 19 Blood Pressure 186/83 H 186/83 H 178/90 H Pulse Oximetry 96 97 96 Oxygen Delivery Room Air 05/17/25 08:25 05/17/25 08:27 05/17/25 08:44 Temperature 98.0 F Pulse Rate 81 94 88 Respiratory Rate 17 Blood Pressure 164/84 H 166/88 H 164/84 H Pulse Oximetry 100 Oxygen Delivery Exam 2 Const: General: comfortable and no acute distress Eyes: General: appearance normal, both eyes and all related structures Neck: Neck: supple Resp: Effort & Inspection: normal respiratory effort Cardio: Rate: regular rate GI: Inspection: non-distended GI Palp: Yes Soft to palpation, Yes Tenderness to palpation present (GI) (Right-sided abdominal pain) and No Guarding due to palpation present (GI) Auscultation: normal bowel sounds Skin: General skin exam: normal color Extrem: General: normal to inspection Psych: Mental Status: mental status grossly normal Results Labs 05/17/25 08:31 05/17/25 08:31 Labs: Abnormal lab results 05/17/25 Range/Units 08:31 Neut % (Auto) 87.5 H (45.5-73.1) % Lymph % (Auto) 8.0 L (18.3-44.2) % Lymph # (Auto) 0.61 L (0.9-3.2) K/mm3 Chloride 97 L (98-107) mmol/L Carbon Dioxide 32 H (22-30) mmol/L Glucose 164 H (65-110) mg/dL Alkaline Phosphatase 220 H (38-126) U/L Diabetes panel 05/17/25 Range/Units 08:31 Sodium 138 (137-145) mmol/L Potassium 4.2 (3.4-5.0) mmol/L Chloride 97 L (98-107) mmol/L Carbon Dioxide 32 H (22-30) mmol/L BUN 14 D (7-17) mg/dL Creatinine 0.77 (0.7-1.0) mg/dL Glucose 164 H (65-110) mg/dL Calcium 9.6 (8.4-10.2) mg/dL Alkaline Phosphatase 220 H (38-126) U/L Total Protein 8.2 (6.3-8.2) g/dL Albumin 4.5 (3.5-5.1) g/dL Calcium panel 05/17/25 Range/Units 08:31 Calcium 9.6 (8.4-10.2) mg/dL Albumin 4.5 (3.5-5.1) g/dL Pituitary panel 05/17/25 Range/Units 08:31 Sodium 138 (137-145) mmol/L Potassium 4.2 (3.4-5.0) mmol/L Chloride 97 L (98-107) mmol/L Carbon Dioxide 32 H (22-30) mmol/L BUN 14 D (7-17) mg/dL Creatinine 0.77 (0.7-1.0) mg/dL Glucose 164 H (65-110) mg/dL Calcium 9.6 (8.4-10.2) mg/dL Adrenal panel 05/17/25 Range/Units 08:31 Sodium 138 (137-145) mmol/L Potassium 4.2 (3.4-5.0) mmol/L Chloride 97 L (98-107) mmol/L Carbon Dioxide 32 H (22-30) mmol/L BUN 14 D (7-17) mg/dL Creatinine 0.77 (0.7-1.0) mg/dL Glucose 164 H (65-110) mg/dL Calcium 9.6 (8.4-10.2) mg/dL Total Bilirubin 0.9 (0.2-1.3) mg/dL Alkaline Phosphatase 220 H (38-126) U/L Total Protein 8.2 (6.3-8.2) g/dL Albumin 4.5 (3.5-5.1) g/dL All other labs normal.
[2025-05-17 09:16] LABS: Alanine Aminotransferase 840 U/L (6-35); Aspartate Amino Transferase 901 U/L (14-36)
--- NOTE | 2025-05-17 09:35 | PC.NURSE ---
Spoke with staff at [facility], in [place], [place], regarding current medication list. Telephone number provided for return call.
--- NOTE | 2025-05-17 13:33 | ADMGEN ---
This patient, Huyen Nick, was admitted to [facility] Surg Room 324-02. Patient/family oriented to hospital policies and general routines including ID bracelet, bed and alarms, visiting hours, pain management, procedures, bathroom and other care routines, personal items, smoking policy, room service/diet, and visiting hours. Information on how to activate the Rapid Response Team has been discussed. Patient/Family are encouraged to report perceived risks to care and to ask questions if they do not understand what they are told or what they should do.
--- NOTE | 2025-05-17 14:13 | PM.IMHP ---
H&P: HPI History of Present Illness Date/Time: 05/17/25 14:13 Chief Complaint: Abdominal pain Narrative: 74-year-old female history of hypertension diabetes hiatal esophageal ring presented with epigastric abdominal pain and nausea. She was just in the ER last night with same symptoms and was diagnosed with symptomatic cholelithiasis after workup. CT abdomen showed gallstone without cholecystitis and mildly elevated LFTs. She went back to half-way and had an episode of nausea vomiting and hence center back to the ER for evaluation. She denies any other problems no fever chills shortness of breath cough chest pain. In the ED evaluation her vitals were stable. Laboratory workup revealed WBC of 12.5 hemoglobin of 12.1 platelet of 245 Chem panel was unremarkable except for blood sugar of 177. LFTs were elevated with total bilirubin 0.7 AST of 437 ALT 212 and alkaline phosphatase of 134. Lipase was normal at 107. Urinalysis was negative for UTI. CT abdomen pelvis was performed which showed cholelithiasis and small hiatal hernia with diverticulosis without diverticulitis no bowel obstruction. Repeat lab were performed which showed normal WBC at 7.6. LFTs were more elevated with AST of 901 ALT of 840 and alkaline phosphatase of 220. Total bilirubin is still normal at 0.9. CT abdomen and pelvis showed cholelithiasis minimal intrahepatic biliary dilatation which nonspecific. 9 mm cystic mass of the pancreas as which was stable from prior exam. She had MRI of the abdomen done in 01/2024 which showed cystic lesions of the pancreas measuring up to 18 mm which could be pseudocyst intraductal papillary mucinous neoplasm, mucinous cystic neoplasm serous cystadenoma and neuroendocrine tumor. She is admitted in this setting for further treatment. Review of Systems Review of Systems: Review system could not be Completed due to nonverbal status [facility] Past Medical History Medical History Dysphagia History of hypertension Diabetes Social History Social History Smoking status: Former smoker Alcohol intake: never Substance use: never Substance use type: does not use Lack of Transportation: No Lack of Food: Never True Current Housing: I Have Housing Concerned About Future Housing: No Difficulty Paying Gas/Electric Bills: No Difficulty Paying for Meds: No Currently Unemployed: No Education: High School Diploma/GED Difficulty w/ Childcare or Family Care: No Living arrangements: half-way Spiritual care concerns: No Meds Home Medications and Allergies Home Medications ?Medication ?Instructions ?Recorded ?Confirmed ?Type acetaminophen 650 mg 650 mg PO Q6H PRN pain 01/31/24 05/17/25 History tablet,extended release bisacodyl 10 mg rectal suppository 10 mg RECTAL DAILY PRN Constipation 01/31/24 05/17/25 History bisacodyl 10 mg/30 mL enema (Fleet 5 mg RECTAL DAILY PRN Constipation 01/31/24 05/17/25 History Bisacodyl) cholecalciferol (vitamin D3) 10 2,000 unit PO DAILY 01/31/24 05/17/25 History mcg (400 unit) capsule ferrous sulfate 325 mg (65 mg 325 mg PO DAILY 01/31/24 05/17/25 History iron) tablet lisinopril 10 mg tablet 10 mg PO DAILY 01/31/24 05/17/25 History magnesium hydroxide 400 mg/5 mL 30 ml PO DAILY PRN Constipation 01/31/24 05/17/25 History oral suspension (Milk of Magnesia) multivitamin 1 tablet PO DAILY 01/31/24 05/17/25 History polyethylene glycol 3350 17 17 g PO DAILY 01/31/24 05/17/25 History gram/dose oral powder sennosides 8.6 mg capsule (senna) 8.6 mg PO DAILY 01/31/24 05/17/25 History atorvastatin 10 mg tablet 10 mg PO HS 05/29/24 05/17/25 History magnesium citrate (Citroma oral 300 ml PO DAILY PRN Constipation 05/29/24 05/17/25 History solution) cyanocobalamin (vitamin B-12) 1,000 mcg PO DAILY 05/17/25 05/17/25 History 1,000 mcg capsule dicyclomine 20 mg tablet 20 mg PO TID PRN abdominal pain 05/17/25 05/17/25 Rx #14 tabs ondansetron 4 mg disintegrating 4 mg PO Q6-8H PRN nausea and 05/17/25 05/17/25 History tablet vomiting sertraline 25 mg tablet 25 mg PO DAILY 05/17/25 05/17/25 History Allergies Allergy/AdvReac Type Severity Reaction Status Date / Time No Known Allergies Allergy Verified 05/17/25 07:51 Vital Signs Vital Signs - 24 hr 05/17/25 05:56 05/17/25 06:06 05/17/25 07:50 Temperature 98.2 F Pulse Rate 66 65 92 Respiratory Rate 16 20 19 Blood Pressure 186/83 H 186/83 H 178/90 H Pulse Oximetry 96 97 96 Oxygen Delivery Room Air 05/17/25 08:25 05/17/25 08:27 05/17/25 08:44 Temperature 98.0 F Pulse Rate 81 94 88 Respiratory Rate 17 Blood Pressure 164/84 H 166/88 H 164/84 H Pulse Oximetry 100 Oxygen Delivery 05/17/25 12:00 05/17/25 13:36 Temperature Pulse Rate 89 Respiratory Rate Blood Pressure Pulse Oximetry Oxygen Delivery Room Air Exam Narrative: GENERAL: [Well-appearing, well-nourished, and in no acute distress.] HEAD: [Normocephalic, atraumatic.] EYES: [PERRLA and EOMI.] ENT: Nares clear, no rhinorrhea or epistaxis. Mucous membranes moist NECK: Supple. CHEST: Clear to auscultation. No respiratory distress. HEART: Regular rate and rhythm. No murmur heard. Normal peripheral pulses. ABDOMEN: Soft and nondistended, mildly tender in the epigastric region, no rigidity or guarding EXTREMITIES: Normal range of motion. [No edema.] SKIN: Warm, dry, no rash. NEURO: [No focal deficits]. Alert and communicative PSYCH: [Normal mood and affect.] H&P: Results Labs Labs: Short CBC 05/17/25 Range/Units 08:31 WBC 7.6 (4.5-10.0) K/mm3 Hgb 14.2 (12.0-15.0) g/dL Hct 43.8 (37.0-47.0) % Plt Count 295 (150-375) k/mm3 BMP 05/17/25 08:31 Sodium 138 Potassium 4.2 Chloride 97 L Carbon Dioxide 32 H BUN 14 D Creatinine 0.77 Glucose 164 H Calcium 9.6 Liver Function 05/17/25 Range/Units 08:31 Total Bilirubin 0.9 (0.2-1.3) mg/dL AST 901 H (14-36) U/L ALT 840 H (6-35) U/L Alkaline Phosphatase 220 H (38-126) U/L Albumin 4.5 (3.5-5.1) g/dL Assessment and Plan Assessment and plan (1) Elevated LFTs: Code(s): R79.89 - Other specified abnormal findings of blood chemistry Status: Acute (2) Pancreatic cyst: Code(s): K86.2 - Cyst of pancreas Status: Acute (3) Symptomatic cholelithiasis: Code(s): K80.20 - Calculus of gallbladder without cholecystitis without obstruction Status: Acute (4) Anemia: Qualifiers: Anemia type: unspecified type Qualified Code(s): D64.9 - Anemia, unspecified Code(s): D64.9 - Anemia, unspecified Status: Acute (5) Appetite loss: Code(s): R63.0 - Anorexia Status: Acute Plan 74-year-old female history of hypertension diabetes hiatal esophageal ring presented with epigastric abdominal pain and nausea. She was just in the ER last night with same symptoms and was diagnosed with symptomatic cholelithiasis after workup. CT abdomen showed gallstone without cholecystitis and mildly elevated LFTs. She went back to half-way and had an episode of nausea vomiting and hence center back to the ER for evaluation. She denies any other problems no fever chills shortness of breath cough chest pain. In the ED evaluation her vitals were stable. Laboratory workup on 8 05/16/2025 showed revealed WBC of 12.5 hemoglobin of 12.1 platelet of 245 Chem panel was unremarkable except for blood sugar of 177. LFTs were elevated with total bilirubin 0.7 AST of 437 ALT 212 and alkaline phosphatase of 134. Lipase was normal at 107. Urinalysis was negative for UTI. CT abdomen and pelvis showed cholelithiasis minimal intrahepatic biliary dilatation which nonspecific. 9 mm cystic mass of the pancreas as which was stable from prior exam. She had MRI of the abdomen done in 01/2024 which showed cystic lesions of the pancreas measuring up to 18 mm which could be pseudocyst intraductal papillary mucinous neoplasm, mucinous cystic neoplasm serous cystadenoma and neuroendocrine tumor. Repeat lab were performed which showed normal WBC at 7.6. LFTs were more elevated with AST of 901 ALT of 840 and alkaline phosphatase of 220. Total bilirubin is still normal at 0.9. She is admitted in this setting for further treatment. Elevated liver enzymes with findings of minimal intrahepatic biliary dilatation which is nonspecific. Cholelithiasis possibly symptomatic. With elevated liver enzymes may need to rule out choledocholithiasis. Will check hepatitis panel. Right upper quadrant ultrasound has been ordered. May need MRCP if not revealing. await ruq us for now. NPO and IV fluids Pancreatic cysts dvt proph: scds code status: full code Hospitalist MIPS Advance Care Plan I have confirmed that the patient's Advanced Care Plan is present, code status is documented, or surrogate decision maker is listed in patient medical record.: Yes Medication Reconciliation I have utilized all available resources to obtain, update and review the patients current medications (includes all prescriptions, OTC, herbals, cannabis, and nutritional supplements).: Yes
[2025-05-17 15:57] LABS: Hepatitis B Surface Antigen Negative (Negative)
[2025-05-17 16:03] LABS: HAV RESULT Negative (Negative); Hepatitis B Core IgM Result Negative (Negative)
[2025-05-17] MEDS: ACETAMINOPHEN 325 MG TABLET 650 MG PO (21:06)
[2025-05-18] VITALS (10 sets, daily range): BP systolic 124–159; BP diastolic 62–89; PULSE 67–89; RESP 16–20; TEMP 36.6–36.7; O2SAT 94–97
[2025-05-18] MEDS: LACTATED RINGERS 1,000 ML 100 ML IV CONT ×3 (05:22→20:57)
[2025-05-18] MEDS: ACETAMINOPHEN 325 MG TABLET 650 MG PO ×3 (06:16→20:57)
--- NOTE | 2025-05-18 07:28 | P.PNIM_ITS ---
Progress Note: A&P Assessment and Plan (1) Symptomatic cholelithiasis: Code(s): K80.20 - Calculus of gallbladder without cholecystitis without obstruction Status: Acute Assessment and Plan: * Monitor vital signs, I and O's, check stool output, neuro status and patient is a fall risk * Monitor serum electrolytes and CBC * Abdomen MRI with MRCP (02/28/2024): Cystic lesions of the pancreas measuring up to 18 mm. The differential diagnosis includes pseudocyst, intraductal papillary mucinous neoplasm (IPMN), mucinous cystic neoplasm (MCN), serous cystadenoma, and neuroendocrine tumor. Abdomen MRI without and with contrast is recommended 6 months. Cholelithiasis. Small sliding hiatal hernia. * Monitor lactic acid * IV pain management * Gentle IV fluid resuscitation * Consult general surgery for further evaluation, appreciate assistance and recommendation * Diet:NPO * HIDA scan today * Consider laparoscopic cholecystectomy if obstructed cystic duct is identified. (2) Elevated LFTs: Code(s): R79.89 - Other specified abnormal findings of blood chemistry Status: Acute Assessment and Plan: * See above (3) Pancreatic cyst: Code(s): K86.2 - Cyst of pancreas Status: Acute Assessment and Plan: * 9 mm cystic mass of the pancreas as which was stable from prior exam (4) Appetite loss: Code(s): R63.0 - Anorexia Status: Acute Assessment and Plan: * Likely secondary to underlying cholelithiasis * Will consider consult to dietitian if lack of appetite persists after HIDA scan/laparoscopic cholecystectomy Subjective Date/time seen: 05/18/25 07:28 Interval history: 74-year-old female history of hypertension diabetes hiatal esophageal ring presented with epigastric abdominal pain and nausea. She was just in the ER last night with same symptoms and was diagnosed with symptomatic cholelithiasis after workup. CT abdomen showed gallstone without cholecystitis and mildly elevated LFTs. 05/18/2025 Patient sitting comfortably in bed at time of examination. Denies any chest pain, shortness a breath, abdominal pain, nausea/vomiting at this time. Seen by general surgery who agrees with continuing with HIDA scan at this point. Remains afebrile without leukocytosis. Bilirubin elevated to 1.4, LFTs still increased. No other concerns at this point, will reassess after HIDA scan. Review of Systems Review of Systems: Review system could not be Completed due to nonverbal status Exam Narrative: GENERAL: [Well-appearing, well-nourished, and in no acute distress.] HEAD: [Normocephalic, atraumatic.] EYES: [PERRLA and EOMI.] ENT: Nares clear, no rhinorrhea or epistaxis. Mucous membranes moist NECK: Supple. CHEST: Clear to auscultation. No respiratory distress. HEART: Regular rate and rhythm. No murmur heard. Normal peripheral pulses. ABDOMEN: Soft and nondistended, mildly tender in the epigastric region, no rigidity or guarding EXTREMITIES: Normal range of motion. [No edema.] SKIN: Warm, dry, no rash. NEURO: [No focal deficits]. Alert and communicative PSYCH: [Normal mood and affect.] Objective Data Vital Signs Vital Signs: Vital Signs - 24 hr 05/17/25 07:50 05/17/25 08:25 05/17/25 08:27 Temperature Pulse Rate 92 81 94 Respiratory Rate 19 Blood Pressure 178/90 H 164/84 H 166/88 H Pulse Oximetry 96 Oxygen Delivery 05/17/25 08:44 05/17/25 12:00 05/17/25 13:36 Temperature 98.0 F Pulse Rate 88 89 Respiratory Rate 17 Blood Pressure 164/84 H Pulse Oximetry 100 Oxygen Delivery Room Air 05/17/25 16:00 05/17/25 20:00 05/17/25 20:10 Temperature Pulse Rate 91 88 85 Respiratory Rate Blood Pressure Pulse Oximetry Oxygen Delivery 05/17/25 21:07 05/18/25 00:00 05/18/25 04:00 Temperature 98.1 F Pulse Rate 91 75 67 Respiratory Rate 16 Blood Pressure 163/91 H Pulse Oximetry 97 Oxygen Delivery 05/18/25 06:00 Temperature 98.1 F Pulse Rate 84 Respiratory Rate 20 Blood Pressure 124/89 Pulse Oximetry 96 Oxygen Delivery Intake/Output Intake/Output: Intake & Output 05/15/25 05/16/25 05/17/25 05/18/25 23:59 23:59 23:59 23:59 Intake Total 1240 736.7 Balance 1240 736.7 Meds/Results Medications: Active Medications Generic Name Dose Route Start Last Admin Trade Name Freq PRN Reason Stop Dose Admin Acetaminophen 650 mg 05/17/25 06:25 05/18/25 06:16 Acetaminophen 325 Mg Tablet PO 650 mg Q4H PRN Administration Mild Pain (1-3) or Fever Lactated Ringer's 1,000 mls @ 100 mls/hr 05/17/25 06:25 05/18/25 05:22 Lr - Lactated Ringers Iv IV CONT 100 mls/hr .Q10H QI Administration Ondansetron HCl 4 mg 05/17/25 06:25 05/17/25 08:01 Ondansetron Inj 4 Mg/2 Ml Vial IV PUSH 4 mg Q4H PRN Administration Nausea Radiology Results: ITS Impressions Abdomen Ultrasound 05/17/25 15:23 IMPRESSION: Limited evaluation of the pancreas secondary to overlying bowel gas Cholelithiasis, with moderate gallbladder wall thickening without pericholecystic fluid or gallbladder wall hyperemia. Labs Labs: Laboratory Results - last 24 hr 05/17/25 05/17/25 05/17/25 08:31 14:55 21:00 WBC 7.6 RBC 5.05 Hgb 14.2 Hct 43.8 MCV 86.7 MCH 28.1 MCHC 32.4 RDW 13.5 Plt Count 295 MPV 9.5 Immature Gran % (Auto) 0.4 Neut % (Auto) 87.5 H Lymph % (Auto) 8.0 L Rock % (Auto) 3.8 Eos % (Auto) 0.0 Baso % (Auto) 0.3 Lymph # (Auto) 0.61 L [place] # (Auto) 0.3 Eos # (Auto) 0.0 Baso # (Auto) 0.0 Abs Immat Gran (auto) 0.03 Absolute Neuts (auto) 6.6 Absolute Nucleated RBC 0.000 Nucleated RBC % 0.0 Sodium 138 Potassium 4.2 Chloride 97 L Carbon Dioxide 32 H Anion Gap 9 BUN 14 D Creatinine 0.77 Estim Creat Clear Calc Not Reportable Estimated GFR > 60 Glucose 164 H POC Capillary Glucose 145 H Calcium 9.6 Total Bilirubin 0.9 AST 901 H ALT 840 H Alkaline Phosphatase 220 H Total Protein 8.2 Albumin 4.5 Lipase 97 Hepatitis A IgM Ab Negative Hep Bs Antigen Negative Hep B Core IgM Ab Negative Hepatitis C Ab Screen Negative
[2025-05-18 08:03] LABS: Hematocrit 39.2 % (37.0-47.0); Hemoglobin 12.5 g/dL (12.0-15.0); Mean Corpuscular HGB Conc 31.9 g/dl (32-36); Mean Corpuscular Hemoglobin 27.5 pg (26-34); Mean Corpuscular Volume 86.3 fl (80-100); Platelet Count Result 252 k/mm3 (150-375); Red Blood Count 4.54 M/mm3 (4.2-5.4); White Blood Count 7.4 K/mm3 (4.5-10.0)
[2025-05-18 08:43] LABS: Albumin Level 3.8 g/dL (3.5-5.1); Alkaline Phosphatase 205 U/L (38-126); Anion Gap 6 mmol/L (4-12); Aspartate Amino Transferase 623 U/L (14-36); Bilirubin,Total 1.4 mg/dL (0.2-1.3); Blood Urea Nitrogen 18 mg/dL (7-17); Calcium 9.0 mg/dL (8.4-10.2); Carbon Dioxide 32 mmol/L (22-30); Chloride 98 mmol/L (98-107); Estimated CRCL calculation 38 ml/min; Estimated Glomerular Filt Rate > 60; Glucose 121 mg/dL (65-110); Potassium 4.0 mmol/L (3.4-5.0); Sodium 136 mmol/L (137-145); Total Protein 6.9 g/dL (6.3-8.2)
[2025-05-18 08:59] LABS: Alanine Aminotransferase 858 U/L (6-35)
--- NOTE | 2025-05-18 10:10 | P.PNGS_ITS ---
Progress Note: A&P Assessment and Plan (1) Symptomatic cholelithiasis: Code(s): K80.20 - Calculus of gallbladder without cholecystitis without obstruction Status: Acute Assessment and Plan: * Right upper quadrant ultrasound demonstrated multiple stones within the gallbladder. Moderate gallbladder wall thickening without pericholecystic fluid. No gallbladder wall hyperemia. Common bile duct 6.4 mm. HIDA scan ordered for today, as patient does not express any right upper quadrant pain today. We will base our plan off of these findings and continue to monitor with serial abdominal exams and labs. Consider laparoscopic cholecystectomy if obstructed cystic duct is identified. (2) Elevated LFTs: Code(s): R79.89 - Other specified abnormal findings of blood chemistry Status: Acute Plan Discussed patient's case and plan of care with Dr. King. Subjective Subjective Date/Time Seen: 05/18/25 10:10 Post Op day: 2 Patient reports: no new complaints Interval history: Patient doing well today. Pain is decreased. HIDA scan scheduled for today. WBC count normal. Bilirubin now elevated to 1.4. Other liver enzymes remain elevated. No nausea or vomiting. Exam GI: Inspection: non-distended GI Palp: Yes Soft to palpation, No Tenderness to palpation present (GI) and No Guarding due to palpation present (GI) Auscultation: normal bowel sounds Skin: General skin exam: normal color and no rashes or lesions noted Extrem: General: normal to inspection Objective Data Vital Signs Vital Signs: Vital Signs - 24 hr 05/17/25 12:00 05/17/25 13:36 05/17/25 16:00 Temperature Pulse Rate 89 91 Respiratory Rate Blood Pressure Pulse Oximetry Oxygen Delivery Room Air 05/17/25 20:00 05/17/25 20:10 05/17/25 21:07 Temperature 98.1 F Pulse Rate 88 85 91 Respiratory Rate 16 Blood Pressure 163/91 H Pulse Oximetry 97 Oxygen Delivery 05/18/25 00:00 05/18/25 04:00 05/18/25 06:00 Temperature 98.1 F Pulse Rate 75 67 84 Respiratory Rate 20 Blood Pressure 124/89 Pulse Oximetry 96 Oxygen Delivery Intake/Output Intake/Output: Intake & Output 05/15/25 05/16/25 05/17/25 05/18/25 23:59 23:59 23:59 23:59 Intake Total 1240 736.7 Balance 1240 736.7 Meds/Results Medications: Active Medications Generic Name Dose Route Start Last Admin Trade Name Freq PRN Reason Stop Dose Admin Acetaminophen 650 mg 05/17/25 06:25 05/18/25 06:16 Acetaminophen 325 Mg Tablet PO 650 mg Q4H PRN Administration Mild Pain (1-3) or Fever Lactated Ringer's 1,000 mls @ 100 mls/hr 05/17/25 06:25 05/18/25 05:22 Lr - Lactated Ringers Iv IV CONT 100 mls/hr .Q10H QI Administration Ondansetron HCl 4 mg 05/17/25 06:25 05/17/25 08:01 Ondansetron Inj 4 Mg/2 Ml Vial IV PUSH 4 mg Q4H PRN Administration Nausea Radiology Results: ITS Impressions Abdomen Ultrasound 05/17/25 15:23 IMPRESSION: Limited evaluation of the pancreas secondary to overlying bowel gas Cholelithiasis, with moderate gallbladder wall thickening without pericholecystic fluid or gallbladder wall hyperemia. Labs Labs: Laboratory Results - last 24 hr 05/17/25 05/17/25 05/18/25 14:55 21:00 07:44 WBC 7.4 RBC 4.54 Hgb 12.5 Hct 39.2 MCV 86.3 MCH 27.5 MCHC 31.9 L RDW 13.5 Plt Count 252 MPV 9.2 Sodium 136 L Potassium 4.0 Chloride 98 Carbon Dioxide 32 H Anion Gap 6 BUN 18 H Creatinine 0.88 Estim Creat Clear Calc 38 Estimated GFR > 60 Glucose 121 H POC Capillary Glucose 145 H Calcium 9.0 Total Bilirubin 1.4 H AST 623 H ALT 858 H Alkaline Phosphatase 205 H Total Protein 6.9 Albumin 3.8 Hepatitis A IgM Ab Negative Hep Bs Antigen Negative Hep B Core IgM Ab Negative Hepatitis C Ab Screen Negative 05/18/25 08:18 WBC RBC Hgb Hct MCV MCH MCHC RDW Plt Count MPV Sodium Potassium Chloride Carbon Dioxide Anion Gap BUN Creatinine Estim Creat Clear Calc Estimated GFR Glucose POC Capillary Glucose 125 H Calcium Total Bilirubin AST ALT Alkaline Phosphatase Total Protein Albumin Hepatitis A IgM Ab Hep Bs Antigen Hep B Core IgM Ab Hepatitis C Ab Screen
[2025-05-19] VITALS (20 sets, daily range): BP systolic 128–166; BP diastolic 63–86; PULSE 57–99; RESP 13–20; TEMP 36–36.9; O2SAT 90–100
[2025-05-19] MEDS: LACTATED RINGERS 1,000 ML 100 ML IV CONT ×2 (08:30→18:38)
[2025-05-19] MEDS: ONDANSETRON INJ 4 MG/2 ML VIAL IV PUSH (08:35)
--- NOTE | 2025-05-19 09:11 | P.PNIM_ITS ---
Progress Note: A&P Assessment and Plan (1) Symptomatic cholelithiasis: Code(s): K80.20 - Calculus of gallbladder without cholecystitis without obstruction Status: Acute Assessment and Plan: * Monitor vital signs, I and O's, check stool output, neuro status and patient is a fall risk * Monitor serum electrolytes and CBC * Abdomen MRI with MRCP (02/28/2024): Cystic lesions of the pancreas measuring up to 18 mm. The differential diagnosis includes pseudocyst, intraductal papillary mucinous neoplasm (IPMN), mucinous cystic neoplasm (MCN), serous cystadenoma, and neuroendocrine tumor. Abdomen MRI without and with contrast is recommended 6 months. Cholelithiasis. Small sliding hiatal hernia. * IV pain management * Gentle IV fluid resuscitation * Diet:NPO * HIDA scan 05/18: Patent common bile duct with no evident gallbladder activity over the course of 4 hours of imaging which would be consistent with acute cholecystitis. False positives can be seen with either inadequate fasting prior to the study or prolonged fasting of greater than 24 hours. * Gen surg - lap edwin today @ 1645 (2) Elevated LFTs: Code(s): R79.89 - Other specified abnormal findings of blood chemistry Status: Acute Assessment and Plan: * See above (3) Pancreatic cyst: Code(s): K86.2 - Cyst of pancreas Status: Acute Assessment and Plan: * 9 mm cystic mass of the pancreas as which was stable from prior exam (4) Appetite loss: Code(s): R63.0 - Anorexia Status: Acute Assessment and Plan: * Likely secondary to underlying cholelithiasis * Will consider consult to dietitian if lack of appetite persists after HIDA scan/laparoscopic cholecystectomy Subjective Date/time seen: 05/19/25 09:11 Interval history: 74-year-old female history of hypertension diabetes hiatal esophageal ring presented with epigastric abdominal pain and nausea. She was just in the ER last night with same symptoms and was diagnosed with symptomatic cholelithiasis after workup. CT abdomen showed gallstone without cholecystitis and mildly elevated LFTs. 05/19/2025 Patient sitting comfortably in bed at time of examination. HIDA scan yesterday shows cholecystitis - gen surg to take for Lap Edwin, possibly open, @ 1645 today. Pt otherwise is comfortably and has no complaints at this time. Review of Systems Review of Systems: Review system could not be Completed due to nonverbal status Exam Narrative: GENERAL: [Well-appearing, well-nourished, and in no acute distress.] HEAD: [Normocephalic, atraumatic.] EYES: [PERRLA and EOMI.] ENT: Nares clear, no rhinorrhea or epistaxis. Mucous membranes moist NECK: Supple. CHEST: Clear to auscultation. No respiratory distress. HEART: Regular rate and rhythm. No murmur heard. Normal peripheral pulses. ABDOMEN: Soft and nondistended, mildly tender in the epigastric region, no rigidity or guarding EXTREMITIES: Normal range of motion. [No edema.] SKIN: Warm, dry, no rash. NEURO: [No focal deficits]. Alert and communicative PSYCH: [Normal mood and affect.] Objective Data Vital Signs Vital Signs: Vital Signs - 24 hr 05/18/25 12:00 05/18/25 14:00 05/18/25 16:00 Temperature 97.8 F Pulse Rate 86 80 85 Respiratory Rate 17 Blood Pressure 159/82 H Pulse Oximetry 94 Oxygen Delivery 05/18/25 20:04 05/18/25 20:45 05/18/25 22:00 Temperature 98.1 F Pulse Rate 89 72 83 Respiratory Rate 16 Blood Pressure 125/62 Pulse Oximetry 97 Oxygen Delivery 05/19/25 00:00 05/19/25 04:00 05/19/25 05:41 Temperature 98.2 F Pulse Rate 66 57 L 65 Respiratory Rate 18 Blood Pressure 143/75 H Pulse Oximetry 96 Oxygen Delivery 05/19/25 08:52 Temperature Pulse Rate Respiratory Rate Blood Pressure Pulse Oximetry 93 Oxygen Delivery Room Air Intake/Output Intake/Output: Intake & Output 05/16/25 05/17/25 05/18/25 05/19/25 23:59 23:59 23:59 23:59 Intake Total 1240 2768.4 1000 Balance 1240 2768.4 1000 Meds/Results Medications: Active Medications Generic Name Dose Route Start Last Admin Trade Name Freq PRN Reason Stop Dose Admin Acetaminophen 650 mg 05/17/25 06:25 05/18/25 20:57 Acetaminophen 325 Mg Tablet PO 650 mg Q4H PRN Administration Mild Pain (1-3) or Fever Lactated Ringer's 1,000 mls @ 100 mls/hr 05/17/25 06:25 05/19/25 08:30 Lr - Lactated Ringers Iv IV CONT 100 mls/hr .Q10H QI Administration Ondansetron HCl 4 mg 05/17/25 06:25 05/19/25 08:35 Ondansetron Inj 4 Mg/2 Ml Vial IV PUSH 4 mg Q4H PRN Administration Nausea Radiology Results: ITS Impressions Abdomen Ultrasound 05/17/25 15:23 IMPRESSION: Limited evaluation of the pancreas secondary to overlying bowel gas Cholelithiasis, with moderate gallbladder wall thickening without pericho lecystic fluid or gallbladder wall hyperemia. Hepatobiliary Scan Nuclear Medicine 05/18/25 11:47 IMPRESSION: 1. Patent common bile duct with no evident gallbladder activity over the course of 4 hours of imaging which would be consistent with acute cholecystitis. False positives can be seen with either inadequate fasting prior to the study or prolonged fasting of greater than 24 hours. Labs Labs: Laboratory Results - last 24 hr 05/18/25 05/18/25 05/18/25 12:04 16:38 20:44 POC Capillary Glucose 107 H 96 154 H 05/19/25 07:52 POC Capillary Glucose 96
[2025-05-19] MEDS: LACTATED RINGERS 1,000 ML 30 ML IV CONT (15:30)
--- NOTE | 2025-05-19 15:39 | PC.NURSE ---
To OR per [ ], IV [ ]. Report given to [jaydon].
--- NOTE | 2025-05-19 15:56 | WPDANESEPPF ---
Anes - Initial Pre Proc Eval Procedure: Operation Date: 05/19/25 16:45 Proposed Procedures p Laparoscopic Cholecystectomy, Possible Open - Cm King DO Date/Time: 05/19/25 15:56 Surgeon: Linda Birch DO Pre Op Diagnosis: Symptomatic Gallstones/Intractable Nausea/Vomiting Patient Data Age: 74 Gender: F Height: 1.57 m Weight: 56.8 kg Last Vital Signs Temp 36.8 C 05/19/25 14:00 Pulse 88 05/19/25 14:00 Resp 16 05/19/25 14:00 BP 159/71 H 05/19/25 14:00 Pulse Ox 96 05/19/25 14:00 O2 Del Method Room Air 05/19/25 08:52 Allergies Allergy/AdvReac Type Severity Reaction Status Date / Time No Known Allergies Allergy Verified 05/19/25 15:57 Home Medications ?Medication ?Instructions ?Recorded ?Confirmed ?Type acetaminophen 650 mg 650 mg PO Q6H PRN pain 01/31/24 05/17/25 History tablet,extended release bisacodyl 10 mg rectal suppository 10 mg RECTAL DAILY PRN Constipation 01/31/24 05/17/25 History bisacodyl 10 mg/30 mL enema (Fleet 5 mg RECTAL DAILY PRN Constipation 01/31/24 05/17/25 History Bisacodyl) cholecalciferol (vitamin D3) 10 2,000 unit PO DAILY 01/31/24 05/17/25 History mcg (400 unit) capsule ferrous sulfate 325 mg (65 mg 325 mg PO DAILY 01/31/24 05/17/25 History iron) tablet lisinopril 10 mg tablet 10 mg PO DAILY 01/31/24 05/17/25 History magnesium hydroxide 400 mg/5 mL 30 ml PO DAILY PRN Constipation 01/31/24 05/17/25 History oral suspension (Milk of Magnesia) multivitamin 1 tablet PO DAILY 01/31/24 05/17/25 History polyethylene glycol 3350 17 17 g PO DAILY 01/31/24 05/17/25 History gram/dose oral powder sennosides 8.6 mg capsule (senna) 8.6 mg PO DAILY 01/31/24 05/17/25 History atorvastatin 10 mg tablet 10 mg PO HS 05/29/24 05/17/25 History magnesium citrate (Citroma oral 300 ml PO DAILY PRN Constipation 05/29/24 05/17/25 History solution) cyanocobalamin (vitamin B-12) 1,000 mcg PO DAILY 05/17/25 05/17/25 History 1,000 mcg capsule dicyclomine 20 mg tablet 20 mg PO TID PRN abdominal pain 05/17/25 05/17/25 Rx #14 tabs ondansetron 4 mg disintegrating 4 mg PO Q6-8H PRN nausea and 05/17/25 05/17/25 History tablet vomiting sertraline 25 mg tablet 25 mg PO DAILY 05/17/25 05/17/25 History Laboratory Tests 05/18/25 05/18/25 05/19/25 16:38 20:44 07:52 POC Capillary Glucose 96 mg/dl 154 H mg/dl 96 mg/dl (65-105) (65-105) (65-105) 05/19/25 12:00 POC Capillary Glucose 94 mg/dl (65-105) Patient hx anesthesia problems: none Family hx anesthesia problems: none Results Review: All pre-operative results and documents have been reviewed as part of the pre-operative evaluation. [facility] Past Medical History Medical History (Updated 05/19/25 @ 15:56 by Olegario Vizcarra MD) Dementia Dysphagia History of hypertension Diabetes Surgical History Surgical History (Updated 05/19/25 @ 15:56 by Olegario Vizcarra MD) H/O cataract removal with insertion of prosthetic lens Social History Social History Smoking status: Former smoker Alcohol intake: never Substance use: never Substance use type: does not use Lack of Transportation: No Lack of Food: Never True Current Housing: I Have Housing Concerned About Future Housing: No Difficulty Paying Gas/Electric Bills: No Difficulty Paying for Meds: No Currently Unemployed: No Education: High School Diploma/GED Difficulty w/ Childcare or Family Care: No Living arrangements: [facility] Spiritual care concerns: No Anes - Eval Final PreProcedure Day of Procedure 05/19/25 15:56 Patient weight: normal Heart: regular rate and rhythm Lungs: clear to auscultation Airway: Mallampati scale class II Neurological: alert and oriented Last oral intake: >/= 8 hours ASA classification: IV Emergent: no Anesthetic plan: proceed Anesthesia type and monitoring: general ETT and standard monitoring Results Review: All pre-operative results and documents have been reviewed as part of the pre-operative evaluation. Informed Consent: The patient's anesthetic plan and its attendant risks and benefits were discussed with the patient/family/POA. Questions were solicited and answers provided to the satisfaction of the patient/family/POA.
--- NOTE | 2025-05-19 16:00 | WPDHPUPDATE1 ---
History and Physical Update Update Date/Time: 05/19/25 16:00 History and Physical has been reviewed, including an updated exam of the patient. There are NO changes in the patient's condition. Risks, benefits, and alternatives have been discussed and questions answered. Patient agrees to proceed with procedure.
[2025-05-19] MEDS: ceFAZolin 2 GM in SODIUM CHLORIDE 0.9% IV 50 ML 100 ML IVPB (16:02)
[2025-05-19] MEDS: BUPIVACAINE/EPINEPHRINE 0.5% 30 ML VIAL INFILTRATE (16:31)
--- NOTE | 2025-05-19 16:38 | S_PTH ---
PATIENT: Huyen Nick LOC: [id number] U#:[id number] AGE/SX: 74/F ROOM: 324 RE05/17/[address]: Ling Gutierrez MD : 1950 BED: 02 DIS: 05/21/2025 SPEC #: [id number] RECD: 05/20/25 09:35 STATUS: PARVEEN REQ #: [id number] NEGRA: 05/19/25 16:[address]: Cm King DEPT: [facility] Surgical RECD BY: Lolita Metz ENTERED: 05/20/25 09:35 SP TYPE: Surgical OTHR DR: CARI Phillips DO Haresh K. Motwani, MD Tissues: A - Gallbladder Procedures: Hematoxylin and Eosin Stain Gross and Microscopic Level 3
--- NOTE | 2025-05-19 17:01 | W.PM.PROC2 ---
Procedure Note - Detailed Date of Procedure 05/19/25 Pre-op Diagnosis Acute calculous cholecystitis Post-op Diagnosis Same Procedure Performed Laparoscopic cholecystectomy Surgeon Cm King, DO Anesthesia General and Local (0.5% bupivacaine) Indications This is a 74-year-old woman who presented to the emergency department with abdominal pain with nausea and vomiting. She is a resident of a [place] [facility]. Her initial workup showed evidence of a distended gallbladder and possible signs of cholecystitis. Her pain was mostly in the lower abdomen at 1st and therefore an ultrasound and a HIDA scan was also obtained. This showed evidence of cholelithiasis and obstruction of the cystic duct consistent with acute cholecystitis. The common bile duct appeared patent with activity progressing to the duodenum. Discussions were made with the patient about treatment options and decision was made to proceed with laparoscopic cholecystectomy, possible open. Findings Laparoscopic cholecystectomy was performed. The gallbladder appeared slightly dilated and had gallbladder wall edema. There also appeared to be some erythema right near the neck of the gallbladder. There were multiple small gallstones within the gallbladder. The cystic duct appeared normal in size. The gallbladder was removed and sent to the lab for pathology. Description of Procedure Procedure as well as risks, benefits, and alternatives were discussed with patient. Written consent was obtained and placed in chart prior to procedure. The patient was brought back to surgical suite. Patient was placed in supine position on operating table. Time-out was done to confirm patient and procedure. Patient was then intubated by the anesthesia department. Abdomen was prepped and draped in sterile fashion using chlorhexidine prep. 0.5% bupivacaine with epinephrine was infiltrated at each site of incision. A 5 millimeter incision was made near the umbilicus, and a 5 millimeter Optiview trocar was advanced through the abdominal layers under direct visualization. Once inside the abdominal cavity, carbon dioxide was insufflated to create a pneumoperitoneum. The camera was inserted and the abdomen was inspected. No immediate abnormalities were identified. The patient was placed in reverse Trendelenburg position and rotated slightly to the left. An 11 millimeter incision was made in the subxiphoid region, and an 11 millimeter trocar was inserted under direct visualization. Two 5 millimeter incisions were made in the right upper quadrant, and two 5 millimeter trocars were inserted under direct visualization. The gallbladder was identified and grasped at the fundus and retracted superiorly. It was then grasped at the infundibulum retracted laterally. Careful dissection around the neck of the gallbladder was performed using blunt dissection with a [place] grasper and hook electrocautery. The cystic duct was identified, and a window was created behind it. The cystic artery was also identified and a window was created behind it. The critical view of safety was identified, visualizing the cystic duct running directly into the neck of the gallbladder, and the cystic artery running directly into the wall of the gallbladder. A 5 millimeter clip field service tech was then used to place 2 clips proximally and 1 clip distally on both the cystic duct and cystic artery. They were then both transected using endoscopic scissors. Once safely away from the festus hepatitis, the gallbladder was dissected free from the liver bed using hook electrocautery. Hemostasis was achieved along the way. The gallbladder was removed completely and then removed through the subxiphoid port. The liver bed was then inspected. Hemostasis appeared adequate, and our clips appeared secure. The area was gently irrigated with sterile saline. No other abnormalities were seen. The patient was flattened out in bed, and 1 final inspection was made around the abdominal cavity. The subxiphoid port was removed, and a Natanael Nina cone was used to approximate the fascia with an 0-Vicryl simple interrupted suture. The remaining ports were then removed under direct visualization, the camera was removed, and the pneumoperitoneum was released. The skin of the incisions was approximated using 4-0 Monocryl subcuticular sutures. Exofin glue was applied on top. The patient was then awakened from anesthesia, extubated, and transferred to recovery. Estimated Blood Loss 5 Pathology Yes (Gallbladder) Complications No immediate complications Condition Stable Disposition Floor [facility] [place] Billing Surgery - Charge Forward: Surgery Billing
--- NOTE | 2025-05-19 18:28 | PC.NURSE ---
Returned from OR per [ ]. Report received from [ jasen].
[2025-05-19] MEDS: MORPHINE SULFATE (*CRX) 2 MG/ML INJ IV PUSH (20:15)
[2025-05-20] VITALS (11 sets, daily range): BP systolic 110–156; BP diastolic 60–72; PULSE 67–83; RESP 15–18; TEMP 36.2–36.9; O2SAT 90–98
[2025-05-20] MEDS: MORPHINE SULFATE (*CRX) 2 MG/ML INJ IV PUSH (00:47)
[2025-05-20] MEDS: HYDROcodone/acetaminophen (*CRX) 5-325 MG TABLET 1 TAB PO ×3 (04:42→20:55)
[2025-05-20 06:08] LABS: Hematocrit 36.0 % (37.0-47.0); Hemoglobin 11.2 g/dL (12.0-15.0); Mean Corpuscular HGB Conc 31.1 g/dl (32-36); Mean Corpuscular Hemoglobin 27.3 pg (26-34); Mean Corpuscular Volume 87.8 fl (80-100); Platelet Count Result 210 k/mm3 (150-375); Red Blood Count 4.10 M/mm3 (4.2-5.4); White Blood Count 8.8 K/mm3 (4.5-10.0)
[2025-05-20 06:34] LABS: Alanine Aminotransferase 258 U/L (6-35); Albumin Level 3.4 g/dL (3.5-5.1); Alkaline Phosphatase 138 U/L (38-126); Anion Gap 6 mmol/L (4-12); Aspartate Amino Transferase 63 U/L (14-36); Bilirubin,Total 0.6 mg/dL (0.2-1.3); Blood Urea Nitrogen 15 mg/dL (7-17); Calcium 8.6 mg/dL (8.4-10.2); Carbon Dioxide 29 mmol/L (22-30); Chloride 97 mmol/L (98-107); Estimated CRCL calculation 43 ml/min; Estimated Glomerular Filt Rate > 60; Glucose 103 mg/dL (65-110); Potassium 3.8 mmol/L (3.4-5.0); Sodium 132 mmol/L (137-145); Total Protein 6.1 g/dL (6.3-8.2)
[2025-05-20] MEDS: ENOXAPARIN 40 MG/0.4 ML SYRINGE SUB-Q (09:10)
--- NOTE | 2025-05-20 10:21 | P.PNGS_ITS ---
Progress Note: A&P Assessment and Plan (1) Symptomatic cholelithiasis: Code(s): K80.20 - Calculus of gallbladder without cholecystitis without obstruction Status: Acute Assessment and Plan: * Pod 1 status post laparoscopic cholecystectomy. White blood cell count normal. LFTs normalizing. Patient tolerated the procedure well. Tolerating clear liquids without nausea or vomiting. Notes some abdominal tenderness around incisions. Voiding with PureWick. Will advance diet as tolerated. * Continue [place] for pain. * Pathology pending. (2) Elevated LFTs: Code(s): R79.89 - Other specified abnormal findings of blood chemistry Status: Acute Plan Discussed patient's case and plan of care with Dr. King. Subjective Subjective Date/Time Seen: 05/20/25 10:21 Post Op day: 1 Patient reports: pain is less, tolerating liquids well and no bowel movement Interval history: Pod 1 status post laparoscopic cholecystectomy. Patient doing well. Tolerating clear liquid diet without nausea or vomiting. Voiding with pure wick. Notes some incisional pain. WBC normal. Bilirubin normal. LFTs still elevated, but decreased from yesterday. Exam Const: General: comfortable and no acute distress GI: Inspection: non-distended GI Palp: Yes Soft to palpation, Yes Tenderness to palpation present (GI) and No Guarding due to palpation present (GI) Other: Incisions clean and dry with glue intact. Minimal surrounding erythema and ecchymosis. No signs of infection, tissue necrosis, dehiscence. Skin: General skin exam: normal color and no rashes or lesions noted Objective Data Vital Signs Vital Signs: Vital Signs - 24 hr 05/19/25 12:00 05/19/25 14:00 05/19/25 15:30 Temperature 98.2 F 97.8 F Pulse Rate 82 88 85 Respiratory Rate 16 16 Blood Pressure 159/71 H 160/86 H Pulse Oximetry 96 93 Oxygen Delivery Room Air Oxygen Flow Rate Fraction of Inspired Oxygen 05/19/25 16:53 05/19/25 17:05 05/19/25 17:20 Temperature 97.5 F L Pulse Rate 83 79 75 Respiratory Rate 20 17 13 Blood Pressure 128/63 128/71 166/73 H Pulse Oximetry 98 100 100 Oxygen Delivery Simple Face Mask Simple Face Mask Room Air Oxygen Flow Rate 8 8 Fraction of Inspired Oxygen 05/19/25 17:35 05/19/25 17:55 05/19/25 18:10 Temperature Pulse Rate 76 79 76 Respiratory Rate 16 14 13 Blood Pressure 150/72 H 154/77 H 163/72 H Pulse Oximetry 97 97 96 Oxygen Delivery Room Air Room Air Room Air Oxygen Flow Rate Fraction of Inspired Oxygen 05/19/25 18:20 05/19/25 18:55 05/19/25 19:59 Temperature 96.8 F L 97.4 F L 98.5 F Pulse Rate 81 86 84 Respiratory Rate 16 16 16 Blood Pressure 151/72 H 145/75 H 153/74 H Pulse Oximetry 95 96 90 Oxygen Delivery Oxygen Flow Rate Fraction of Inspired Oxygen 05/19/25 20:00 05/19/25 20:00 05/19/25 21:39 Temperature Pulse Rate 99 96 Respiratory Rate 20 Blood Pressure Pulse Oximetry 96 Oxygen Delivery Room Air Room Air Oxygen Flow Rate Fraction of Inspired Oxygen 21 05/19/25 23:59 05/20/25 00:00 05/20/25 04:00 Temperature 98.4 F Pulse Rate 81 75 75 Respiratory Rate 18 Blood Pressure 144/71 H Pulse Oximetry 94 Oxygen Delivery Oxygen Flow Rate Fraction of Inspired Oxygen 05/20/25 06:00 05/20/25 08:00 Temperature 98.4 F Pulse Rate 71 82 Respiratory Rate 18 Blood Pressure 110/63 Pulse Oximetry 90 Oxygen Delivery Oxygen Flow Rate Fraction of Inspired Oxygen Intake/Output Intake/Output: Intake & Output 05/17/25 05/18/25 05/19/25 05/20/25 23:59 23:59 23:59 23:59 Intake Total 1240 2768.4 1150 Output Total 400 Balance 1240 2768.4 1150 -400 Meds/Results Medications: Active Medications Generic Name Dose Route Start Last Admin Trade Name Freq PRN Reason Stop Dose Admin Acetaminophen 650 mg 05/17/25 06:25 05/18/25 20:57 Acetaminophen 325 Mg Tablet PO 650 mg Q4H PRN Administration Mild Pain (1-3) or Fever Hydrocodone Bitart/Acetaminophen 1 tab 05/19/25 18:14 05/20/25 09:21 Hydrocodone/Acetaminophen (*Crx) 5-325 Mg Tablet PO 1 tab Q4H PRN Administration Pain Rated 4-6 Hydrocodone Bitart/Acetaminophen 1 tab 05/19/25 18:14 Hydrocodone/Acetaminophen (*Crx) 7.5-325 Mg Tablet PO Q4H PRN Pain Rated 7-10 Enoxaparin Sodium 40 mg 05/20/25 09:00 05/20/25 09:10 Enoxaparin 40 Mg/0.4 Ml Syringe SUB-Q 40 mg DAILY QI Administration Morphine Sulfate 2 mg 05/19/25 18:14 05/20/25 00:47 Morphine Sulfate (*Crx) 2 Mg/Ml Inj IV PUSH 2 mg Q2H PRN Administration Breakthrough Pain Rated 4-6 or NPO Morphine Sulfate 4 mg 05/19/25 18:14 Morphine Sulfate (*Crx) 4 Mg/Ml Inj IV PUSH Q2H PRN Breakthrough Pain Rated 7-10 or NPO Naloxone HCl 0.1 mg 05/19/25 18:14 Naloxone Hcl 0.4 Mg/Ml Vial IV PUSH Q2M PRN Opiate Reversal Ondansetron HCl 4 mg 05/17/25 06:25 05/19/25 08:35 Ondansetron Inj 4 Mg/2 Ml Vial IV PUSH 4 mg Q4H PRN Administration Nausea Radiology Results: ITS Impressions Abdomen Ultrasound 05/17/25 15:23 IMPRESSION: Limited evaluation of the pancreas secondary to overlying bowel gas Cholelithiasis, with moderate gallbladder wall thickening without pericholecystic fluid or gallbladder wall hyperemia. Hepatobiliary Scan Nuclear Medicine 05/18/25 11:47 IMPRESSION: 1. Patent common bile duct with no evident gallbladder activity over the course of 4 hours of imaging which would be consistent with acute cholecystitis. False positives can be seen with either inadequate fasting prior to the study or prolonged fasting of greater than 24 hours. Labs Labs: Laboratory Results - last 24 hr 05/19/25 05/19/25 05/19/25 12:00 17:15 20:13 WBC RBC Hgb Hct MCV MCH MCHC RDW Plt Count MPV Sodium Potassium Chloride Carbon Dioxide Anion Gap BUN Creatinine Estim Creat Clear Calc Estimated GFR Glucose POC Capillary Glucose 94 127 H 139 H Calcium Total Bilirubin AST ALT Alkaline Phosphatase Total Protein Albumin 05/20/25 05/20/25 05:45 07:47 WBC 8.8 RBC 4.10 L Hgb 11.2 L Hct 36.0 L MCV 87.8 MCH 27.3 MCHC 31.1 L RDW 13.0 Plt Count 210 MPV 9.4 Sodium 132 L Potassium 3.8 Chloride 97 L Carbon Dioxide 29 Anion Gap 6 BUN 15 Creatinine 0.77 Estim Creat Clear Calc 43 Estimated GFR > 60 Glucose 103 POC Capillary Glucose 98 Calcium 8.6 Total Bilirubin 0.6 AST 63 H ALT 258 H Alkaline Phosphatase 138 H Total Protein 6.1 L Albumin 3.4 L
--- NOTE | 2025-05-20 11:40 | P.PNIM_ITS ---
Progress Note: A&P Assessment and Plan (1) Symptomatic cholelithiasis: Code(s): K80.20 - Calculus of gallbladder without cholecystitis without obstruction Status: Acute Assessment and Plan: * Monitor vital signs, I and O's, check stool output, neuro status and patient is a fall risk * Monitor serum electrolytes and CBC * Abdomen MRI with MRCP (02/28/2024): Cystic lesions of the pancreas measuring up to 18 mm. The differential diagnosis includes pseudocyst, intraductal papillary mucinous neoplasm (IPMN), mucinous cystic neoplasm (MCN), serous cystadenoma, and neuroendocrine tumor. Abdomen MRI without and with contrast is recommended 6 months. Cholelithiasis. Small sliding hiatal hernia. * IV pain management * Gentle IV fluid resuscitation * Diet:NPO * HIDA scan 05/18: Patent common bile duct with no evident gallbladder activity over the course of 4 hours of imaging which would be consistent with acute cholecystitis. False positives can be seen with either inadequate fasting prior to the study or prolonged fasting of greater than 24 hours. * Gen surg - lap edwin today @ 1645 * * 05/20 * day 1 s/p laparoscopic cholecystectomy. LFT trending down. Tolerating clear liquids well. Some abdominal tenderness around incisions ut no sharp pain. Surgery advancing diet (2) Elevated LFTs: Code(s): R79.89 - Other specified abnormal findings of blood chemistry Status: Acute Assessment and Plan: * See above * trending down (3) Pancreatic cyst: Code(s): K86.2 - Cyst of pancreas Status: Acute Assessment and Plan: * 9 mm cystic mass of the pancreas as which was stable from prior exam (4) Appetite loss: Code(s): R63.0 - Anorexia Status: Acute Assessment and Plan: * Likely secondary to underlying cholelithiasis * Will consider consult to dietitian if lack of appetite persists after HIDA scan/laparoscopic cholecystectomy Time Spent With Patient Time with patient: 25 - 35 minutes Subjective Date/time seen: 05/20/25 11:40 Interval history: 74-year-old female history of hypertension diabetes hiatal esophageal ring presented with epigastric abdominal pain and nausea. She was just in the ER last night with same symptoms and was diagnosed with symptomatic cholelithiasis after workup. CT abdomen showed gallstone without cholecystitis and mildly elevated LFTs. 05/19/2025 Patient sitting comfortably in bed at time of examination. HIDA scan yesterday shows cholecystitis - gen surg to take for Lap Edwin, possibly open, @ 1645 t [place]. Pt otherwise is comfortably and has no complaints at this time. 05/20/25 assuming care. s/p op day 1- laparoscopic cholecystectomy. She is resting in bed with eyes Tolerating clear liquids without nausea or vomiting, reports some abdominal tenderness . Voiding with PureWick. Diet is advanced per surgery. Review of Systems Review of Systems: All systems reviewed & are unremarkable except as noted in HPI and below Exam Narrative: GENERAL: Well-appearing, well-nourished, and in no acute distress. HEAD: Normocephalic, atraumatic. EYES: PERRLA and EOMI. ENT: Nares clear, no rhinorrhea or epistaxis. Mucous membranes moist NECK: Supple. CHEST: Clear to auscultation. No respiratory distress. HEART: Regular rate and rhythm. No murmur heard. Normal peripheral pulses. ABDOMEN: Soft and nondistended, mildly tender in the epigastric region, no rigidity or guarding EXTREMITIES: Normal range of motion. No edema. SKIN: Warm, dry, no rash. NEURO: [No focal deficits]. Alert and communicative PSYCH:Normal mood and affect. Const: General: comfortable Objective Data Vital Signs Vital Signs: Vital Signs - 24 hr 05/19/25 12:00 05/19/25 14:00 05/19/25 15:30 Temperature 98.2 F 97.8 F Pulse Rate 82 88 85 Respiratory Rate 16 16 Blood Pressure 159/71 H 160/86 H Pulse Oximetry 96 93 Oxygen Delivery Room Air Oxygen Flow Rate Fraction of Inspired Oxygen 05/19/25 16:53 05/19/25 17:05 05/19/25 17:20 Temperature 97.5 F L Pulse Rate 83 79 75 Respiratory Rate 20 17 13 Blood Pressure 128/63 128/71 166/73 H Pulse Oximetry 98 100 100 Oxygen Delivery Simple Face Mask Simple Face Mask Room Air Oxygen Flow Rate 8 8 Fraction of Inspired Oxygen 05/19/25 17:35 05/19/25 17:55 05/19/25 18:10 Temperature Pulse Rate 76 79 76 Respiratory Rate 16 14 13 Blood Pressure 150/72 H 154/77 H 163/72 H Pulse Oximetry 97 97 96 Oxygen Delivery Room Air Room Air Room Air Oxygen Flow Rate Fraction of Inspired Oxygen 05/19/25 18:20 05/19/25 18:55 05/19/25 19:59 Temperature 96.8 F L 97.4 F L 98.5 F Pulse Rate 81 86 84 Respiratory Rate 16 16 16 Blood Pressure 151/72 H 145/75 H 153/74 H Pulse Oximetry 95 96 90 Oxygen Delivery Oxygen Flow Rate Fraction of Inspired Oxygen 05/19/25 20:00 05/19/25 20:00 05/19/25 21:39 Temperature Pulse Rate 99 96 Respiratory Rate 20 Blood Pressure Pulse Oximetry 96 Oxygen Delivery Room Air Room Air Oxygen Flow Rate Fraction of Inspired Oxygen 21 05/19/25 23:59 05/20/25 00:00 05/20/25 04:00 Temperature 98.4 F Pulse Rate 81 75 75 Respiratory Rate 18 Blood Pressure 144/71 H Pulse Oximetry 94 Oxygen Delivery Oxygen Flow Rate Fraction of Inspired Oxygen 05/20/25 06:00 05/20/25 08:00 05/20/25 11:11 Temperature 98.4 F 97.7 F Pulse Rate 71 82 67 Respiratory Rate 18 18 Blood Pressure 110/63 144/60 H Pulse Oximetry 90 94 Oxygen Delivery Oxygen Flow Rate Fraction of Inspired Oxygen Intake/Output Intake/Output: Intake & Output 05/17/25 05/18/25 05/19/25 05/20/25 23:59 23:59 23:59 23:59 Intake Total 1240 2768.4 1150 240 Output Total 400 Balance 1240 2768.4 1150 -160 Meds/Results Medications: Active Medications Generic Name Dose Route Start Last Admin Trade Name Freq PRN Reason Stop Dose Admin Acetaminophen 650 mg 05/17/25 06:25 05/18/25 20:57 Acetaminophen 325 Mg Tablet PO 650 mg Q4H PRN Administration Mild Pain (1-3) or Fever Hydrocodone Bitart/Acetaminophen 1 tab 05/19/25 18:14 05/20/25 09:21 Hydrocodone/Acetaminophen (*Crx) 5-325 Mg Tablet PO 1 tab Q4H PRN Administration Pain Rated 4-6 Hydrocodone Bitart/Acetaminophen 1 tab 05/19/25 18:14 Hydrocodone/Acetaminophen (*Crx) 7.5-325 Mg Tablet PO Q4H PRN Pain Rated 7-10 Enoxaparin Sodium 40 mg 05/20/25 09:00 05/20/25 09:10 Enoxaparin 40 Mg/0.4 Ml Syringe SUB-Q 40 mg DAILY QI Administration Morphine Sulfate 2 mg 05/19/25 18:14 05/20/25 00:47 Morphine Sulfate (*Crx) 2 Mg/Ml Inj IV PUSH 2 mg Q2H PRN Administration Breakthrough Pain Rated 4-6 or NPO Morphine Sulfate 4 mg 05/19/25 18:14 Morphine Sulfate (*Crx) 4 Mg/Ml Inj IV PUSH Q2H PRN Breakthrough Pain Rated 7-10 or NPO Naloxone HCl 0.1 mg 05/19/25 18:14 Naloxone Hcl 0.4 Mg/Ml Vial IV PUSH Q2M PRN Opiate Reversal Ondansetron HCl 4 mg 05/17/25 06:25 05/19/25 08:35 Ondansetron Inj 4 Mg/2 Ml Vial IV PUSH 4 mg Q4H PRN Administration Nausea Radiology Results: ITS Impressions Abdomen Ultrasound 05/17/25 15:23 IMPRESSION: Limited evaluation of the pancreas secondary to overlying bowel gas Cholelithiasis, with moderate gallbladder wall thickening without pericholecystic fluid or gallbladder wall hyperemia. Hepatobiliary Scan Nuclear Medicine 05/18/25 11:47 IMPRESSION: 1. Patent common bile duct with no evident gallbladder activity over the course of 4 hours of imaging which would be consistent with acute cholecystitis. False positives can be seen with either inadequate fasting prior to the study or prolonged fasting of greater than 24 hours. Labs Labs: Laboratory Results - last 24 hr 05/19/25 05/19/25 05/19/25 12:00 17:15 20:13 WBC RBC Hgb Hct MCV MCH MCHC RDW Plt Count MPV Sodium Potassium Chloride Carbon Dioxide Anion Gap BUN Creatinine Estim Creat Clear Calc Estimated GFR Glucose POC Capillary Glucose 94 127 H 139 H Calcium Total Bilirubin AST ALT Alkaline Phosphatase Total Protein Albumin 05/20/25 05/20/25 05:45 07:47 WBC 8.8 RBC 4.10 L Hgb 11.2 L Hct 36.0 L MCV 87.8 MCH 27.3 MCHC 31.1 L RDW 13.0 Plt Count 210 MPV 9.4 Sodium 132 L Potassium 3.8 Chloride 97 L Carbon Dioxide 29 Anion Gap 6 BUN 15 Creatinine 0.77 Estim Creat Clear Calc 43 Estimated GFR > 60 Glucose 103 POC Capillary Glucose 98 Calcium 8.6 Total Bilirubin 0.6 AST 63 H ALT 258 H Alkaline Phosphatase 138 H Total Protein 6.1 L Albumin 3.4 L
--- NOTE | 2025-05-20 13:36 | WPDANESPN ---
Anes - Prog Note Post-Op Date/Time: 05/20/25 13:36 Cardiovascular status: normal Respiratory status: normal Airway patency: baseline Mental status: baseline Post-Op hydration status: normal Vital Signs: Last Vital Signs Temp 36.5 C 05/20/25 11:11 Pulse 68 05/20/25 12:00 Resp 18 05/20/25 11:11 BP 144/60 H 05/20/25 11:11 Pulse Ox 94 05/20/25 11:11 O2 Del Method Room Air 05/19/25 21:39 O2 Flow Rate 8 05/19/25 17:05 FiO2 21 05/19/25 21:39 Pain Score (VAS): 0 I/O: Intake & Output 05/19/25 05/20/25 05/20/25 23:59 07:59 15:59 Intake Total 150 240 Output Total 400 Balance 150 -400 240 Laboratory Tests 05/20/25 05:45 05/20/25 05:45 05/19/25 05/19/25 05/20/25 17:15 20:13 05:45 WBC 8.8 RBC 4.10 L Hgb 11.2 L Hct 36.0 L MCV 87.8 MCH 27.3 MCHC 31.1 L RDW 13.0 Plt Count 210 MPV 9.4 Sodium 132 L Potassium 3.8 Chloride 97 L Carbon Dioxide 29 Anion Gap 6 BUN 15 Creatinine 0.77 Estim Creat Clear Calc 43 Estimated GFR > 60 Glucose 103 POC Capillary Glucose 127 H 139 H Calcium 8.6 Total Bilirubin 0.6 AST 63 H ALT 258 H Alkaline Phosphatase 138 H Total Protein 6.1 L Albumin 3.4 L 05/20/25 05/20/25 07:47 11:45 WBC RBC Hgb Hct MCV MCH MCHC RDW Plt Count MPV Sodium Potassium Chloride Carbon Dioxide Anion Gap BUN Creatinine Estim Creat Clear Calc Estimated GFR Glucose POC Capillary Glucose 98 132 H Calcium Total Bilirubin AST ALT Alkaline Phosphatase Total Protein Albumin Post-procedural complaints: none Patient Feedback: Patient satisfied with anesthetic care.
[2025-05-20] MEDS: ATORVASTATIN 10 MG TABLET PO (20:55)
[2025-05-21 00:02] VITALS: PULSE 76
[2025-05-21 04:00] VITALS: PULSE 75
[2025-05-21 05:45] VITALS: BP 152/83; PULSE 85; RESP 16; TEMP 37.3; O2SAT 97
[2025-05-21 08:00] VITALS: PULSE 86
[2025-05-21] MEDS: SENNOSIDES 8.6 MG TABLET PO (09:27)
[2025-05-21] MEDS: MULTIVITAMINS THERAPEUTIC TAB (*BKC) 1 TABLET PO (09:27)
[2025-05-21] MEDS: SERTRALINE HCL 25 MG TABLET PO (09:27)
[2025-05-21] MEDS: FERROUS SULFATE 325 MG TABLET DR PO (09:27)
[2025-05-21] MEDS: ENOXAPARIN 40 MG/0.4 ML SYRINGE SUB-Q (09:27)
[2025-05-21 12:00] VITALS: PULSE 77
--- NOTE | 2025-05-21 13:36 | P.PNIM_ITS ---
Progress Note: A&P Assessment and Plan (1) Symptomatic cholelithiasis: Code(s): K80.20 - Calculus of gallbladder without cholecystitis without obstruction Status: Acute Assessment and Plan: * Monitor vital signs, I and O's, check stool output, neuro status and patient is a fall risk * Monitor serum electrolytes and CBC * Abdomen MRI with MRCP (02/28/2024): Cystic lesions of the pancreas measuring up to 18 mm. The differential diagnosis includes pseudocyst, intraductal papillary mucinous neoplasm (IPMN), mucinous cystic neoplasm (MCN), serous cystadenoma, and neuroendocrine tumor. Abdomen MRI without and with contrast is recommended 6 months. Cholelithiasis. Small sliding hiatal hernia. * IV pain management * Gentle IV fluid resuscitation * Diet:NPO * HIDA scan 05/18: Patent common bile duct with no evident gallbladder activity over the course of 4 hours of imaging which would be consistent with acute cholecystitis. False positives can be seen with either inadequate fasting prior to the study or prolonged fasting of greater than 24 hours. * Gen surg - lap edwin today @ 1645 * * 05/20 * day 1 s/p laparoscopic cholecystectomy. LFT trending down. Tolerating clear liquids well. Some abdominal tenderness around incisions ut no sharp pain. Surgery advancing diet 05/21 tolerating diet, no pain. Discharge back to facility if cleared per surgery (2) Elevated LFTs: Code(s): R79.89 - Other specified abnormal findings of blood chemistry Status: Acute Assessment and Plan: * See above * trending down (3) Pancreatic cyst: Code(s): K86.2 - Cyst of pancreas Status: Acute Assessment and Plan: * 9 mm cystic mass of the pancreas as which was stable from prior exam (4) Appetite loss: Code(s): R63.0 - Anorexia Status: Acute Assessment and Plan: * Likely secondary to underlying cholelithiasis * Will consider consult to dietitian if lack of appetite persists after HIDA scan/laparoscopic cholecystectomy Time Spent With Patient Time with patient: 25 - 35 minutes Subjective Date/time seen: 05/21/25 13:36 Interval history: 74-year-old female history of hypertension diabetes hiatal esophageal ring presented with epigastric abdominal pain and nausea. She was just in the ER last night with same symptoms and was diagnosed with symptomatic cholelithiasis after workup. CT abdomen showed gallstone without cholecystitis and mildly elevated LFTs. 05/19/2025 Patient sitting comfortably in bed at time of examination. HIDA scan yesterday shows cholecystitis - gen surg to take for Lap Edwin, possibly open, @ 1645 today. Pt otherwise is comfortably and has no complaints at this time. 05/20/25 assuming care. s/p op day 1- laparoscopic cholecystectomy. She is resting in bed with eyes Tolerating clear liquids without nausea or vomiting, reports some abdominal tenderness . Voiding with PureWick. Diet is advanced per surgery. 05/21 pt is seen and examined she is resting in bed, voices no complains. No pain, able to tolerate diet. Discharge back to facility if cleared per surgery Review of Systems Review of Systems: Review system could not be Completed due to nonverbal status All systems reviewed & are unremarkable except as noted in HPI and below Exam Narrative: GENERAL: Well-appearing, well-nourished, and in no acute distress. HEAD: Normocephalic, atraumatic. EYES: PERRLA and EOMI. ENT: Nares clear, no rhinorrhea or epistaxis. Mucous membranes moist NECK: Supple. CHEST: Clear to auscultation. No respiratory distress. HEART: Regular rate and rhythm. No murmur heard. Normal peripheral pulses. ABDOMEN: Soft and nondistended, mildly tender in the epigastric region, no rigidity or guarding EXTREMITIES: Normal range of motion. No edema. SKIN: Warm, dry, no rash. NEURO: [No focal deficits]. Alert and communicative PSYCH:Normal mood and affect. Const: General: comfortable Objective Data Vital Signs Vital Signs: Vital Signs - 24 hr 05/20/25 15:29 05/20/25 16:00 05/20/25 20:04 Temperature 97.9 F Pulse Rate 72 67 83 Respiratory Rate 18 Blood Pressure 142/71 H Pulse Oximetry 98 Oxygen Delivery 05/20/25 20:40 05/20/25 20:55 05/21/25 00:02 Temperature 97.1 F L Pulse Rate 76 76 Respiratory Rate 15 Blood Pressure 156/72 H Pulse Oximetry 93 93 Oxygen Delivery Room Air 05/21/25 04:00 05/21/25 05:45 Temperature 99.1 F Pulse Rate 75 85 Respiratory Rate 16 Blood Pressure 152/83 H Pulse Oximetry 97 Oxygen Delivery Intake/Output Intake/Output: Intake & Output 05/18/25 05/19/25 05/20/25 05/21/25 23:59 23:59 23:59 23:59 Intake Total 2768.4 1150 580 600 Output Total 1150 600 Balance 2768.4 1150 -570 0 Meds/Results Medications: Active Medications Generic Name Dose Route Start Last Admin Trade Name Freq PRN Reason Stop Dose Admin Acetaminophen 650 mg 05/17/25 06:25 05/18/25 20:57 Acetaminophen 325 Mg Tablet PO 650 mg Q4H PRN Administration Mild Pain (1-3) or Fever Hydrocodone Bitart/Acetaminophen 1 tab 05/19/25 18:14 05/20/25 20:55 Hydrocodone/Acetaminophen (*Crx) 5-325 Mg Tablet PO 1 tab Q4H PRN Administration Pain Rated 4-6 Hydrocodone Bitart/Acetaminophen 1 tab 05/19/25 18:14 Hydrocodone/Acetaminophen (*Crx) 7.5-325 Mg Tablet PO Q4H PRN Pain Rated 7-10 Atorvastatin Calcium 10 mg 05/20/25 21:00 05/20/25 20:55 Atorvastatin 10 Mg Tablet PO 10 mg HS QI Administration Bisacodyl 10 mg 05/20/25 15:28 Bisacodyl 10 Mg Suppository RECTAL DAILY PRN Constipation Enoxaparin Sodium 40 mg 05/20/25 09:00 05/21/25 09:27 Enoxaparin 40 Mg/0.4 Ml Syringe SUB-Q 40 mg DAILY QI Administration Ferrous Sulfate 325 mg 05/21/25 09:00 05/21/25 09:27 Ferrous Sulfate [address] PO 325 mg DAILY QI Administration Lisinopril 10 mg 05/21/25 09:00 05/21/25 09:27 Lisinopril 10 Mg Tablet PO 10 mg DAILY IQ Administration Magnesium Citrate 300 ml 05/20/25 15:26 Magnesium Citrate 300 Ml Btl PO DAILY PRN Constipation Morphine Sulfate 2 mg 05/19/25 18:14 05/20/25 00:47 Morphine Sulfate (*Crx) 2 Mg/Ml Inj IV PUSH 2 mg Q2H PRN Administration Breakthrough Pain Rated 4-6 or NPO Morphine Sulfate 4 mg 05/19/25 18:14 Morphine Sulfate (*Crx) 4 Mg/Ml Inj IV PUSH Q2H PRN Breakthrough Pain Rated 7-10 or NPO Multivitamins Therapeutic 1 tablet 05/21/25 09:00 05/21/25 09:27 Multivitamins Therapeutic Tab (*Bkc) PO 1 tablet DAILY QI Administration Naloxone HCl 0.1 mg 05/19/25 18:14 Naloxone Hcl 0.4 Mg/Ml Vial IV PUSH Q2M PRN Opiate Reversal Ondansetron HCl 4 mg 05/17/25 06:25 05/19/25 08:35 Ondansetron Inj 4 Mg/2 Ml Vial IV PUSH 4 mg Q4H PRN Administration Nausea Polyethylene Glycol 17 gm 05/21/25 09:00 05/21/25 09:28 Polyethylene Glycol 3350 17 Gm Powd.Pack PO Not Given DAILY QI Senna 8.6 mg 05/21/25 09:00 05/21/25 09:27 Sennosides 8.6 Mg Tablet PO 8.6 mg DAILY QI Administration Sertraline HCl 25 mg 05/21/25 09:00 05/21/25 09:27 Sertraline Hcl 25 Mg Tablet PO 25 mg DAILY QI Administration Radiology Results: ITS Impressions Abdomen Ultrasound 05/17/25 15:23 IMPRESSION: Limited evaluation of the pancreas secondary to overlying bowel gas Cholelithiasis, with moderate gallbladder wall thickening without debbie cholecystic fluid or gallbladder wall hyperemia. Hepatobiliary Scan Nuclear Medicine 05/18/25 11:47 IMPRESSION: 1. Patent common bile duct with no evident gallbladder activity over the course of 4 hours of imaging which would be consistent with acute cholecystitis. False positives can be seen with either inadequate fasting prior to the study or prolonged fasting of greater than 24 hours. Labs Labs: Laboratory Results - last 24 hr 05/20/25 05/20/25 05/21/25 16:50 20:31 07:35 POC Capillary Glucose 83 162 H 127 H 05/21/25 11:35 POC Capillary Glucose 144 H
--- NOTE | 2025-05-21 13:49 | P.DS_ITS ---
DS: Admitting Diagnosis Discharge Date 05/21 Admitting Diagnosis abd pain DS: Discharge Diagnosis Discharge Diagnosis (1) Symptomatic cholelithiasis: Code(s): K80.20 - Calculus of gallbladder without cholecystitis without obstruction Status: Acute (2) Elevated LFTs: Code(s): R79.89 - Other specified abnormal findings of blood chemistry Status: Acute (3) Pancreatic cyst: Code(s): K86.2 - Cyst of pancreas Status: Acute (4) Appetite loss: Code(s): R63.0 - Anorexia Status: Acute DS: Summary Hospital Course Hospital Course: 74-year-old female history of hypertension diabetes hiatal esophageal ring presented with epigastric abdominal pain and nausea. She was just in the ER last night with same symptoms and was diagnosed with symptomatic cholelithiasis after workup. CT abdomen showed gallstone without cholecystitis and mildly elevated LFTs. # Symptomatic cholelithiasis: * Abdomen MRI with MRCP (02/28/2024): Cystic lesions of the pancreas measuring up to 18 mm. The differential diagnosis includes pseudocyst, intraductal papillary mucinous neoplasm (IPMN), mucinous cystic neoplasm (MCN), serous cystadenoma, and neuroendocrine tumor. Abdomen MRI without and with contrast is recommended 6 months. Cholelithiasis. Small sliding hiatal hernia. * HIDA scan 05/18: Patent common bile duct with no evident gallbladder activity over the course of 4 hours of imaging which would be consistent with acute cholecystitis. False positives can be seen with either inadequate fasting prior to the study or prolonged fasting of greater than 24 hours. * laparoscopic cholecystectomy with Dr Jimenez 05/19 * LFT trending down. Tolerating clear liquids well. Some abdominal tenderness around incisions, no sharp pain. Surgery advancing diet 05/21 tolerating diet, no pain. Discharge back to facility, cleared per surgery Status at Discharge Functional status at discharge: bed bound Overall status at discharge: patient is progressing back to baseline Time Spent with Patient Time attestation: Total time spent providing and/or coordinating discharge services: Time spent: Greater than 30 minutes Exam Narrative: GENERAL: Well-appearing, well-nourished, and in no acute distress. HEAD: Normocephalic, atraumatic. EYES: PERRLA and EOMI. ENT: Nares clear, no rhinorrhea or epistaxis. Mucous membranes moist NECK: Supple. CHEST: Clear to auscultation. No respiratory distress. HEART: Regular rate and rhythm. No murmur heard. Normal peripheral pulses. ABDOMEN: Soft and nondistended, mildly tender in the epigastric region, no rigidity or guarding EXTREMITIES: Normal range of motion. No edema. SKIN: Warm, dry, no rash. NEURO: No focal deficits. Alert and communicative PSYCH:Normal mood and affect. Const: General: comfortable Resp: Effort & Inspection: normal respiratory effort Cardio: Rate: regular rate Rhythm: regular rhythm GI: GI Palp: Yes Soft to palpation DS: Data Data Completed and Pending Completed studies during hospitalization: Pending at discharge 05/19/25 16:38 Surgical [PTH] Routine Labs on day of discharge: Labs from last 24 hours 05/21/25 05/21/25 05/20/25 11:35 07:35 20:31 POC Capillary Glucose 144 H 127 H 162 H 05/20/25 16:50 POC Capillary Glucose 83 Discharge Plan Discharge Attending physician on discharge: Ling Gutierrez Consulting providers: Jared Heredia; Cm Jimenez Discharging Clinician: Ida House Patient Disposition: [facility] Longterm/Asst Living Activity: may shower Diet: as tolerated Wound Care Instructions: follow printed instructions Discharge Instructions: DISCHARGE INSTRUCTION SHEET FOR HERNIA, GALLBLADDER AND APPENDIX SURGERIES DR. JIMENEZ PATIENT TO TAKE HOME 1. May shower in 24 hours, no soaking in bath x 2weeks. 2. Call office for: * Wound increasingly painful or bleeding * Vomiting * Fever of greater than 101 degrees 3. If no bowel movement for three days, take 1 oz. (30 ml) Milk of Magnesia or MiraLax 17g 1 to 2 times daily. 4. No heavy lifting > 10-15 pounds x 2 weeks for laparoscopic cholecystectomy. 5. No driving for 3 days or while taking narcotic pain medications. 6. Ice to surgical site for 48 hours (30 min on, then 30 min off). 7. Up walking 10-30 minutes three times per day. 8. Resume previous home medications. 9. Follow-up 10-14 days in office for wound check or as previously scheduled. ([phone]) 10. Oral pain medications prescription to be sent to pharmacy. Take Tylenol 500mg every 6 hours and Ibuprofen 600mg every 6 hours for the first 2 days, then as needed. 11. NUTRITION: Start out by drinking fluids and increase your diet as tolerated. If you experience nausea, try dry toast, crackers, and 7-UP. If nausea or vomiting persists, contact your surgeon?s office. 12. Gallbladders-Low Fat Diet for 2 weeks (send care note of low fat diet) Revised January 2019 Patient Instructions: Antibiotic Form, Low Fat Diet (DC) Patient Language: Ken[place] Stand Alone Forms: General Discharge Information Follow-up/Referrals: Cm Jimenez DO [Physician, General Surgery] - 2 Weeks Referral Note: Our office should call. If you do not hear from them for 3 days, call our office to schedule. Discharge Medications: New hydrocodone-acetaminophen 5-325 mg tablet 1 tablet PO Q4H PRN (Reason: pain) Qty: 14 0RF Continued acetaminophen 650 mg tablet extended release 650 mg PO Q6H PRN (Reason: pain) bisacodyl 10 mg suppository 10 mg RECTAL DAILY PRN (Reason: Constipation) ferrous sulfate 325 mg (65 mg iron) tablet 325 mg PO DAILY Fleet Bisacodyl 10 mg/30 mL enema 5 mg RECTAL DAILY PRN (Reason: Constipation) Patient Comments: if no results 1 day after suppository. lisinopril 10 mg tablet 10 mg PO DAILY magnesium hydroxide [Milk of Magnesia] 400 mg/5 mL suspension 30 ml PO DAILY PRN (Reason: Constipation) Patient Comments: if no BM in 3 days multivitamin Tablet 1 tablet PO DAILY polyethylene glycol 3350 17 gram/dose powder 17 g PO DAILY senna 8.6 mg capsule 8.6 mg PO DAILY cholecalciferol (vitamin D3) 10 mcg (400 unit) capsule 2,000 unit PO DAILY cyanocobalamin (vitamin B-12) 1,000 mcg capsule 1,000 mcg PO DAILY sertraline 25 mg tablet 25 mg PO DAILY ondansetron 4 mg tablet,disintegrating 4 mg PO Q6-8H PRN (Reason: nausea and vomiting) atorvastatin 10 mg tablet 10 mg PO HS magnesium citrate [Citroma] Solution 300 ml PO DAILY PRN (Reason: Constipation) dicyclomine 20 mg tablet 20 mg PO TID PRN (Reason: abdominal pain) Qty: 14 0RF Date of admission: 05/17/25 06:25 Primary Care Provider: Shad Titusitting Provider: Linda Birch Attending physician on admission: Linda Birch Condition: Stable Hospitalist MIPS Heart Failure (Exclusion) Patient has history of Heart Transplant or Left Ventricular Assistive Device?: No IF YES, STOP HERE Heart Failure (Qualifier) Patient has current or prior documentation of LVEF less than or equal to 40%, or mod/servere depressed LVSF?: No IF NO, STOP HERE
[2025-05-21 14:00] VITALS: BP 144/69; PULSE 79; RESP 16; TEMP 36.9; O2SAT 96
--- NOTE | 2025-05-21 15:42 | P.PNGS_ITS ---
Progress Note: A&P Assessment and Plan (1) Symptomatic cholelithiasis: Code(s): K80.20 - Calculus of gallbladder without cholecystitis without obstruction Status: Acute Assessment and Plan: * Tolerating diet * Surgically stable for discharge. F/u in office in 2 weeks. (2) Elevated LFTs: Code(s): R79.89 - Other specified abnormal findings of blood chemistry Status: Acute Subjective Subjective Date/Time Seen: 05/21/25 15:42 Interval history: Tolerating diet. Still having some surgical incisional pain. No other issues. Exam Const: General: comfortable and no acute distress GI: Inspection: non-distended GI Palp: Yes Soft to palpation, Yes Tenderness to palpation present (GI) and No Guarding due to palpation present (GI) Other: Incisions clean and dry with glue intact. Minimal surrounding erythema and ecchymosis. No signs of infection, tissue necrosis, dehiscence. Skin: General skin exam: normal color and no rashes or lesions noted Objective Data Vital Signs Vital Signs: Vital Signs - 24 hr 05/20/25 16:00 05/20/25 20:04 05/20/25 20:40 Temperature 97.1 F L Pulse Rate 67 83 76 Respiratory Rate 15 Blood Pressure 156/72 H Pulse Oximetry 93 Oxygen Delivery 05/20/25 20:55 05/21/25 00:02 05/21/25 04:00 Temperature Pulse Rate 76 75 Respiratory Rate Blood Pressure Pulse Oximetry 93 Oxygen Delivery Room Air 05/21/25 05:45 05/21/25 08:00 05/21/25 09:27 Temperature 99.1 F Pulse Rate 85 86 Respiratory Rate 16 Blood Pressure 152/83 H Pulse Oximetry 97 Oxygen Delivery Room Air 05/21/25 12:00 05/21/25 14:00 Temperature 98.4 F Pulse Rate 77 79 Respiratory Rate 16 Blood Pressure 144/69 H Pulse Oximetry 96 Oxygen Delivery Intake/Output Intake/Output: Intake & Output 05/18/25 05/19/25 05/20/25 05/21/25 23:59 23:59 23:59 23:59 Intake Total 2768.4 1150 580 600 Output Total 1150 600 Balance 2768.4 1150 -570 0 Meds/Results Medications: Active Medications Generic Name Dose Route Start Last Admin Trade Name Freq PRN Reason Stop Dose Admin Acetaminophen 650 mg 05/17/25 06:25 05/18/25 20:57 Acetaminophen 325 Mg Tablet PO 650 mg Q4H PRN Administration Mild Pain (1-3) or Fever Hydrocodone Bitart/Acetaminophen 1 tab 05/19/25 18:14 05/20/25 20:55 Hydrocodone/Acetaminophen (*Crx) 5-325 Mg Tablet PO 1 tab Q4H PRN Administration Pain Rated 4-6 Hydrocodone Bitart/Acetaminophen 1 tab 05/19/25 18:14 Hydrocodone/Acetaminophen (*Crx) 7.5-325 Mg Tablet PO Q4H PRN Pain Rated 7-10 Atorvastatin Calcium 10 mg 05/20/25 21:00 05/20/25 20:55 Atorvastatin 10 Mg Tablet PO 10 mg HS QI Administration Bisacodyl 10 mg 05/20/25 15:28 Bisacodyl 10 Mg Suppository RECTAL DAILY PRN Constipation Enoxaparin Sodium 40 mg 05/20/25 09:00 05/21/25 09:27 Enoxaparin 40 Mg/0.4 Ml Syringe SUB-Q 40 mg DAILY QI Administration Ferrous Sulfate 325 mg 05/21/25 09:00 05/21/25 09:27 Ferrous Sulfate [address] PO 325 mg DAILY QI Administration Lisinopril 10 mg 05/21/25 09:00 05/21/25 09:27 Lisinopril 10 Mg Tablet PO 10 mg DAILY QI Administration Magnesium Citrate 300 ml 05/20/25 15:26 Magnesium Citrate 300 Ml Btl PO DAILY PRN Constipation Morphine Sulfate 2 mg 05/19/25 18:14 05/20/25 00:47 Morphine Sulfate (*Crx) 2 Mg/Ml Inj IV PUSH 2 mg Q2H PRN Administration Breakthrough Pain Rated 4-6 or NPO Morphine Sulfate 4 mg 05/19/25 18:14 Morphine Sulfate (*Crx) 4 Mg/Ml Inj IV PUSH Q2H PRN Breakthrough Pain Rated 7-10 or NPO Multivitamins Therapeutic 1 tablet 05/21/25 09:00 05/21/25 09:27 Multivitamins Therapeutic Tab (*Bkc) PO 1 tablet DAILY QI Administration Naloxone HCl 0.1 mg 05/19/25 18:14 Naloxone Hcl 0.4 Mg/Ml Vial IV PUSH Q2M PRN Opiate Reversal Ondansetron HCl 4 mg 05/17/25 06:25 05/19/25 08:35 Ondansetron Inj 4 Mg/2 Ml Vial IV PUSH 4 mg Q4H PRN Administration Nausea Polyethylene Glycol 17 gm 05/21/25 09:00 05/21/25 09:28 Polyethylene Glycol 3350 17 Gm Powd.Pack PO Not Given DAILY QI Senna 8.6 mg 05/21/25 09:00 05/21/25 09:27 Sennosides 8.6 Mg Tablet PO 8.6 mg DAILY QI Administration Sertraline HCl 25 mg 05/21/25 09:00 05/21/25 09:27 Sertraline Hcl 25 Mg Tablet PO 25 mg DAILY QI Administration Radiology Results: ITS Impressions Abdomen Ultrasound 05/17/25 15:23 IMPRESSION: Limited evaluation of the pancreas secondary to overlying bowel gas Cholelithiasis, with moderate gallbladder wall thickening without pericholecystic fluid or gallbladder wall hyperemia. Hepatobiliary Scan Nuclear Medicine 05/18/25 11:47 IMPRESSION: 1. Patent common bile duct with no evident gallbladder activity over the course of 4 hours of imaging which would be consistent with acute cholecystitis. False positives can be seen with either inadequate fasting prior to the study or prolonged fasting of greater than 24 hours. Labs Labs: Laboratory Results - last 24 hr 05/20/25 05/20/25 05/21/25 16:50 20:31 07:35 POC Capillary Glucose 83 162 H 127 H 05/21/25 11:35 POC Capillary Glucose 144 H
[2025-05-21] MEDS: BISACODYL 5 MG TABLET EC PO (15:56)
== END 2025-05-21 16:17 | DRG 418 ==
LOC: ANHED 06:37 → ANH3MEDSUR 05-18 06:48
PROVIDERS: Internal Medicine; Surgery; Admitting Provider Internal Medicine; Emergency Provider Student in an Organized Health Care Education/Training Program; PCP Family Medicine; Visit Provider Internal Medicine
PROC: 0FT44ZZ Resection of Gallbladder, Percutaneous Endoscopic Approach (ICD-10-PCS; CPT 47562; principal; 2025-05-19 16:45)
DX: K80.00 Calculus of gallbladder with acute cholecystitis without obstruction (principal); K86.2 Cyst of pancreas; K57.30 Diverticulosis of large intestine without perforation or abscess without bleeding; I10 Essential (primary) hypertension; Z87.891 Personal history of nicotine dependence
CPT/HCPCS: 36415; 76705; 78226; 80053; 80074; 82948; 83690; 85025; 85027; 88304; 96374; 99285; J0690; A9270; A9537; J1100; J1650; J2003; J2270; J2405; J2704; J3010; J7030; J7120

== ENCOUNTER 2025-09-08 10:46 | Inpatient (IN) | payer MEDICARE, SELFPAY ==
[2025-09-08] VITALS (31 sets, daily range): BP systolic 126–167; BP diastolic 58–114; PULSE 76–105; RESP 12–30; TEMP 36.6; O2SAT 91–100; BMI 23.6
--- NOTE | ~2025-09-08 | CT_ITS ---
EXAMINATION: CT brain wo con DATE: 09/08/2025 11:23 INDICATION: Altered mental status TECHNIQUE: Computed tomography (CT) of the head was performed without intravenous contrast. The dose-length product was 681.00 mGy-cm. COMPARISON: None FINDINGS: No gross intracranial mass effect or hemorrhage. No large acute ischemic event. Advanced chronic appearing microvascular ischemic appearing white matter changes. Probably old lacunar infarctions in the pontine portion of the brainstem, and in the left basal ganglia region. Extensive vascular calcifications. Paranasal periorbital and calvarial structures unremarkable. IMPRESSION: 1. No acute intracranial process hemorrhage or large acute ischemic event. 2. Extensive chronic microvascular ischemic appearing white matter changes and probably old lacunar infarctions as above. Reviewed, dictated and finalized at location A. UTER INFORMATION SYSTEMS INSTRUCTOR
--- NOTE | ~2025-09-08 | CT_ITS ---
EXAMINATION: CT abdomen pelvis w con DATE: 09/08/2025 18:34 INDICATION: Abdominal pain. TECHNIQUE: Computed tomography (CT) of the abdomen and pelvis was performed 100 cc intravenous contrast. Automated exposure control and iterative reconstruction technique were employed. The dose-length product was 427.27 mGy-cm. COMPARISON: Ultrasound dated 05/17/2025 CT dated 05/16/2025 FINDINGS: Lung bases do not show acute findings. No focal lesions of liver and spleen. Gallbladder is surgically absent. Common bile duct measures 5 mm. Portal vein and hepatic veins are patent. No calculi are obstruction of the kidneys. No evidence of small bowel obstruction. Moderate atherosclerotic changes of superior mesenteric artery. Severe atherosclerotic changes of proximal iliac arteries. CT abdomen and proximal ascending colon are mildly distended up to 8 cm in diameter without focal bowel wall thickening. Appendix is not distinctly visible. Significant mucosal edema and submucosal edema of the descending colon and sigmoid colon are noted. No free fluid or free air. Mild atherosclerotic changes of superior mesenteric artery. Severe degenerative disc disease of upper and mid lumbar discs. IMPRESSION: 1. Mucosal and submucosal inflammation of the descending colon, sigmoid colon are noted with mildly distended proximal colon at the cecum. Findings are suggestive of acute colitis, with the differential between infectious and ischemic colitis. 2. Significant calcific atherosclerotic changes of distal abdominal aorta and iliac arteries. Moderate atherosclerotic changes of mesenteric arteries. 3. Severe degenerative disc changes of upper and mid lumbar discs. Reviewed, dictated and finalized at location T. S INSTALLER TECHNICIAN IMPRESSION: 1. Mucosal and submucosal inflammation of the descending colon, sigmoid colon a re noted with mildly distended proximal colon at the cecum. Findings are sugges tive of acute colitis, with the differential between infectious and ischemic co litis. 2. Significant calcific atherosclerotic changes of distal abdominal aorta and i liac arteries. Moderate atherosclerotic changes of mesenteric arteries. 3. Severe degenerative disc changes of upper and mid lumbar discs.
--- NOTE | 2025-09-08 11:12 | ECG_ITS ---
Test Date: 2025-09-08 11:31:27 Measurements Intervals [place] Rate: 94 P: 32 [place]: 169 QRS: -58 QRSD: 79 T: 62 QT: 353 QTc: 442 Interpretive Statements SINUS RHYTHM WITH OCCASIONAL VENTRICULAR PREMATURE COMPLEXES LEFT AXIS DEVIATION LOW QRS VOLTAGE IN PRECORDIAL LEADS POSSIBLE ANTERIOR MYOCARDIAL INFARCTION , OF INDETERMINATE AGE BORDERLINE ST-T WAVE ABNORMALITY- HIGH LATERAL LEADS BASELINE ARTIFACT- I, II, III, AVR, AVL, AVF, V1-V2, V4 ABNORMAL ECG No previous ECG available for comparison Electronically Signed On 09-08-2025 11:33:20 CLINICAL RESEARCH SPEC by Addy Gregory D.O.
[2025-09-08] MEDS: ONDANSETRON INJ 4 MG/2 ML VIAL IV PUSH (11:14)
[2025-09-08 11:28] LABS: Hematocrit 43.8 % (37.0-47.0); Hemoglobin 14.1 g/dL (12.0-15.0); Immature Granulocyte Percent A 0.5 % (0-0.5); Lymphocytes Absolute Auto 0.80 K/mm3 (0.9-3.2); Mean Corpuscular HGB Conc 32.2 g/dl (32-36); Mean Corpuscular Hemoglobin 28.6 pg (26-34); Mean Corpuscular Volume 88.8 fl (80-100); Nucleated Red Blood Cells Absolute Auto 0.000 K/mm3 (0.0-0.012); Nucleated Red Blood Cells Perc 0.0 % (0.0-0.2); Platelet Count Result 249 k/mm3 (150-375); Red Blood Count 4.93 M/mm3 (4.2-5.4); White Blood Count 8.9 K/mm3 (4.5-10.0)
[2025-09-08 11:40] LABS: INR 1.0; Prothrombin Time 13.0 Seconds (11.1-14.7)
[2025-09-08 11:41] LABS: Partial Thromboplastin Time 25.6 Seconds (22.3-36.8)
[2025-09-08 11:48] LABS: Alanine Aminotransferase 29 U/L (6-35); Albumin Level 4.5 g/dL (3.5-5.1); Alkaline Phosphatase 120 U/L (38-126); Anion Gap 7 mmol/L (4-12); Aspartate Amino Transferase 32 U/L (14-36); Bilirubin,Total 0.5 mg/dL (0.2-1.3); Blood Urea Nitrogen 25 mg/dL (7-17); Calcium 9.7 mg/dL (8.4-10.2); Carbon Dioxide 31 mmol/L (22-30); Chloride 102 mmol/L (98-107); Estimated CRCL calculation 36 ml/min; Estimated Glomerular Filt Rate 59; Glucose 142 mg/dL (65-110); Potassium 4.4 mmol/L (3.4-5.0); Sodium 140 mmol/L (137-145); Total Protein 8.1 g/dL (6.3-8.2)
[2025-09-08 12:14] LABS: Add Urine Microscopic? YES; Appearance Urine Clear (Clear); Glucose Urine UA Negative (Negative); Leukocyte Esterase Ur Trace LEU/UL (Negative); Need Manual Microscopic Reviewed; Nitrate Urine Negative (Negative); Specific Grav Ur 1.021 (1.001-1.035)
[2025-09-08 12:44] LABS: Toxigenic C. Diff NEGATIVE (NEGATIVE)
[2025-09-08] MEDS: LACTATED RINGERS 1,000 ML 999 ML IV CONT (13:04)
--- OUTSIDE RECORDS SUMMARY | 2025-09-08 16:50 | XMS_ITS | Clinical Summary ---
Author Organization [facility] Address [address] [place] [address] Care Team Providers Care Assistant Editor Name Role Phone Jimmy Ortiz MD Primary Care Provider [phone] Source Comments [facility],non-owned Affiliates and Associated Physician Practices is amultiple site organization consisting of ambulatory clinics and hospital sitesin [place], [place], [place] and [place]. This disclosure is being madepursuant to the Care Everywhere program and may not contain all information available regarding this patient. Last updated 18.[employer] Allergies No known active allergies Medications * [...] 56.7 kg (125 lb) 11/12/2022 1:31 PM SURGICAL NURSE Height 157.5 cm (5' 2) 06/24/2022 2:00 PM CDT Body Mass Index 22.86 06/24/2022 2:00 PM CDT Plan of Treatment Health Maintenance Due Date Last Done Comments BONE DENSITY TESTING 1950 MEDICARE AWV 12 MONTHS 1950 HEPATITIS C SCREENING 08/01/1967 DTAP/TDAP/TD VACCINES (1 - Tdap) 1968 PNEUMOCOCCAL VACCINE 50+ (1 of 1 - PCV) 1999 ZOSTER VACCINE (1 of 2) 1999 Respiratory Syncytial Virus (RSV) Vaccine Pt: or over 60 yrs (1 - 1-dose 75+ series) 2024 DEPRESSION SCREENING 09/30/2024 COVID-19 VACCINE (1 - 2024-2 6 season) 2025 INFLUENZA VACCINE (#1) 2025 11/02/2022 HEPATITIS B [...] age to complete this topic Insurance MEDICARE SELF PAY NO INSURANCE Member Subscriber Plan / Payer (Ef fective for All Dates) Name:Tamiko Nick Member ID:Not on file Relation to Subscriber:Not on file Name:TAMIKO NICK Subscriber ID:Not on file (Home) Address: [address] [place] [phone] Payer ID:Not on file Group ID:Not on file Type:Self Pay Address: [place], [place] MEDICARE Advance Directives * Full Code (Latest Code Status on File) Date Activated Date Inactivated Comments 06/24/2022 5:09 PM 06/29/2022 5:44 PM Care Teams Assistant Editor Relationship Specialty Start Date End Date Jimmy Ortiz MD [phone] [address] PCP - General Internal Medicine 06/24/22
--- NOTE | 2025-09-08 16:57 | ED.AMS ---
HPI - Altered Mental Status General Chief Complaint: Altered Mental Status Stated Complaint: AMS Time Seen by Provider: 09/08/25 12:02 History of Present Illness HPI narrative: Patient presenting here with altered mental status, reportedly threw up and became unresponsive in the [facility]. To me, she tells me that she got sick earlier, but she is no longer feeling sick. Denies any abdominal pain. Denies any current complaints. Related Data Home Medications ?Medication ?Instructions ?Recorded ?Confirmed ?Last Taken ?Type acetaminophen 650 mg 650 mg PO Q6H PRN pain 01/31/24 06/04/25 06/02/24 History tablet,extended release bisacodyl 10 mg rectal suppository 10 mg RECTAL DAILY PRN Constipation 01/31/24 06/04/25 06/02/24 History bisacodyl 10 mg/30 mL enema (Fleet 5 mg RECTAL DAILY PRN Constipation 01/31/24 06/04/25 06/02/24 History Bisacodyl) cholecalciferol (vitamin D3) 10 2,000 unit PO DAILY 01/31/24 06/04/25 05/16/25 History mcg (400 unit) capsule ferrous sulfate 325 mg (65 mg 325 mg PO DAILY 01/31/24 06/04/25 05/16/25 History iron) tablet lisinopril 10 mg tablet 10 mg PO DAILY 01/31/24 06/04/25 05/16/25 History magnesium hydroxide 400 mg/5 mL 30 ml PO DAILY PRN Constipation 01/31/24 06/04/25 05/16/25 History oral suspension (Milk of Magnesia) multivitamin 1 tablet PO DAILY 01/31/24 06/04/25 05/16/25 History polyethylene glycol 3350 17 17 g PO DAILY 01/31/24 06/04/25 05/16/25 History gram/dose oral powder sennosides 8.6 mg capsule (senna) 8.6 mg PO DAILY 01/31/24 06/04/25 05/16/25 History atorvastatin 10 mg tablet 10 mg PO HS 05/29/24 06/04/25 05/16/25 History magnesium citrate (Citroma oral 300 ml PO DAILY PRN Constipation 05/29/24 06/04/25 06/02/24 History solution) cyanocobalamin (vitamin B-12) 1,000 mcg PO DAILY 05/17/25 06/04/25 05/16/25 History 1,000 mcg capsule ondansetron 4 mg disintegrating 4 mg PO Q6-8H PRN nausea and 05/17/25 06/04/25 05/16/25 History tablet vomiting sertraline 25 mg tablet 25 mg PO DAILY 05/17/25 06/04/25 05/16/25 History Allergies Allergy/AdvReac Type Severity Reaction Status Date / Time No Known Allergies Allergy Verified 09/08/25 11:13 Review of Systems Review of Systems: All systems reviewed & are unremarkable except as noted in HPI and below [facility] Past Medical History Medical History Dementia Dysphagia History of hypertension Diabetes Surgical History Surgical History H/O cataract removal with insertion of prosthetic lens Social History Social History Smoking status: Former smoker Alcohol intake: never Substance use: never Substance use type: does not use Lack of Transportation: No Lack of Food: Never True Current Housing: I Have Housing Concerned About Future Housing: No Difficulty Paying Gas/Electric Bills: No Difficulty Paying for Meds: No Currently Unemployed: No Education: High School Diploma/GED Difficulty w/ Childcare or Family Care: No Living arrangements: [facility] Spiritual care concerns: No Exam Narrative: EXAMINATION OF ORGAN SYSTEMS/BODY AREAS: Constitutional: Vital signs per nursing GENERAL:No acute distress, non-toxic appearing. HEAD: Normal with no signs of head trauma. EYES: EOMI, conjunctiva normal ENT: Hearing grossly intact LUNGS: Nonlabored breathing. HEART: Regular rate and rhythm ABD: Soft, nontender to palpation EXT: Normal range of motion SKIN: No rashes or lesions. NEURO: Alert. Answering questions appropriately, able to tell me her name and where we are, does not know the year though this is baseline for her. No upper or lower extremity drift, normal sensation bilaterally PSYCH: Normal affect Course Vital Signs Vital signs: Vital Signs Temperature 97.8 F 09/08/25 10:47 Pulse Rate 93 09/08/25 10:47 Respiratory Rate 30 H 09/08/25 10:47 Blood Pressure 134/82 09/08/25 10:47 Pulse Oximetry 95 09/08/25 10:47 Oxygen Delivery Room Air 09/08/25 10:47 Temperature 97.8 F 09/08/25 10:47 Pulse Rate 91 09/08/25 14:30 Respiratory Rate 19 09/08/25 14:30 Blood Pressure 148/73 H 09/08/25 14:30 Pulse Oximetry 96 09/08/25 14:30 Oxygen Delivery Room Air 09/08/25 11:51 MDM MDM Narrative Medical decision making narrative: 75-year-old female presents with episode of nausea, vomiting then altered mental status/unresponsiveness. On my evaluation/examination here, she is well-appearing in no distress, she is able to tell me that she got sick earlier today but that she is feeling much better now. She had received a dose of Zofran prior to my evaluation. Labs within acceptable limits, though she does appear slightly dehydrated with elevated BUN, she is given a dose of fluids. CT brain is negative, C diff is negative EKG - 12-Lead: Performed at 1131. Interpreted by me. Sinus rhythm. Rate 94. Left axis. IN-interval 169. QRS duration 79. QTc 442. No ST segment elevation or depression. T-wave normal. Impression: No EKG evidence of acute ischemia or dysrhythmia. Patient is requesting to be discharged, she is back to her baseline, have no obvious abnormalities seen on labs or workup, her vital signs are normal and she is well-appearing here. I do feel this is appropriate, with close follow-up to PCP return precautions Differential Diagnosis Differential Diagnosis: Infection, dehydration, gastroenteritis, etc. Lab Data 09/08/25 11:18 09/08/25 11:18 Labs: Lab Results 09/08/25 09/08/25 Range/Units 11:18 11:47 WBC 8.9 (4.5-10.0) K/mm3 RBC 4.93 (4.2-5.4) M/mm3 Hgb 14.1 (12.0-15.0) g/dL Hct 43.8 (37.0-47.0) % MCV 88.8 (80-100) fl MCH 28.6 (26-34) pg MCHC 32.2 (32-36) g/dl RDW 13.7 (11.5-14.5) % Plt Count 249 (150-375) k/mm3 MPV 9.5 (7.4-10.4) fl Immature Gran % (Auto) 0.5 (0-0.5) % Neut % (Auto) 84.7 H (45.5-73.1) % Lymph % (Auto) 9.0 L (18.3-44.2) % [place] % (Auto) 5.0 (2.6-8.5) % Eos % (Auto) 0.5 (0-4.4) % Baso % (Auto) 0.3 (0.2-1.2) % Lymph # (Auto) 0.80 L (0.9-3.2) K/mm3 [place] # (Auto) 0.4 (0.1-0.6) K/mm3 Eos # (Auto) 0.0 (0-0.3) K/mm3 Baso # (Auto) 0.0 (0.0-0.1) K/mm3 Abs Immat Gran (auto) 0.04 H (0.00-0.031) K/mm3 Absolute Neuts (auto) 7.5 H (1.3-6.7) K/mm3 Absolute Nucleated RBC 0.000 (0.0-0.012) K/mm3 Nucleated RBC % 0.0 (0.0-0.2) % PT 13.0 (11.1-14.7) Seconds INR 1.0 APTT 25.6 (22.3-36.8) Seconds Sodium 140 (137-145) mmol/L Potassium 4.4 (3.4-5.0) mmol/L Chloride 102 (98-107) mmol/L Carbon Dioxide 31 H (22-30) mmol/L Anion Gap 7 (4-12) mmol/L BUN 25 H D (7-17) mg/dL Creatinine 0.93 (0.7-1.0) mg/dL Estim Creat Clear Calc 36 ml/min Estimated GFR 59 (59 - ) Glucose 142 H (65-110) mg/dL Lactic Acid 1.2 (0.7-2.0) mmol/L Calcium 9.7 (8.4-10.2) mg/dL Total Bilirubin 0.5 (0.2-1.3) mg/dL AST 32 (14-36) U/L ALT 29 (6-35) U/L Alkaline Phosphatase 120 (38-126) U/L Total Protein 8.1 (6.3-8.2) g/dL Albumin 4.5 (3.5-5.1) g/dL Urine Color Dark yellow (Yellow) Urine Appearance Clear (Clear) Urine pH 5.5 (5.0-9.0) Ur Specific [place] 1.021 (1.001-1.035) Urine Protein 1+ H (Negative) mg/dL Urine Glucose (UA) Negative (Negative) mg/dL Urine Ketones Trace H (Negative) mg/dL Ur Blood (Man) Negative (Negative) Urine Nitrate Negative (Negative) Urine Bilirubin 1+ H (Negative) Urine Urobilinogen 1.0 (<2.0) mg/dL Add Ur Microanalysis Reviewed Leukocyte Esterase Rfl Trace H (Negative) KARISSA/UL Urine RBC 0-2 (0-2) /hpf Urine WBC 0-5 (0-3) /hpf Ur Squamous Epith Cells None seen (Few) /hpf Urine Bacteria None seen /hpf Urine Casts 6-10 Hyaline Casts Present (None) /lpf C. difficile (PCR) Negative (NEGATIVE) Imaging Data Radiologist's impression: ITS Impressions Head CT 09/08/25 11:27 IMPRESSION: 1. No acute intracranial process hemorrhage or large acute ischemic event. 2. Extensive chronic microvascular ischemic appearing white matter changes and probably old lacunar infarctions as above. Discharge Plan Discharge Clinical Impression: Altered mental status, Nausea Clinical Impression: (Ruled Out): Alcoholic intoxication Patient Disposition: NH Snf/Asst Living Condition: Stable Instructions: Acute Nausea and Vomiting (ED), Altered Mental Status (ED) Additional Instructions: Make sure to keep hydrated, continue to take the medications as prescribed, come back to the ER for any further issues. Please follow-up with primary care doctor. Patient Language: Georgian Prescriptions: New ondansetron 4 mg tablet,disintegrating 4 mg PO Q8H PRN (Reason: nausea and vomiting) Qty: 10 0RF No Action acetaminophen 650 mg tablet extended release 650 mg PO Q6H PRN (Reason: pain) bisacodyl 10 mg suppository 10 mg RECTAL DAILY PRN (Reason: Constipation) ferrous sulfate 325 mg (65 mg iron) tablet 325 mg PO DAILY Fleet Bisacodyl 10 mg/30 mL enema 5 mg RECTAL DAILY PRN (Reason: Constipation) Patient Comments: if no results 1 day after suppository. lisinopril 10 mg tablet 10 mg PO DAILY magnesium hydroxide [Milk of Magnesia] 400 mg/5 mL suspension 30 ml PO DAILY PRN (Reason: Constipation) Patient Comments: if no BM in 3 days multivitamin Tablet 1 tablet PO DAILY polyethylene glycol 3350 17 gram/dose powder 17 g PO DAILY senna 8.6 mg capsule 8.6 mg PO DAILY cholecalciferol (vitamin D3) 10 mcg (400 unit) capsule 2,000 unit PO DAILY cyanocobalamin (vitamin B-12) 1,000 mcg capsule 1,000 mcg PO DAILY sertraline 25 mg tablet 25 mg PO DAILY ondansetron 4 mg tablet,disintegrating 4 mg PO Q6-8H PRN (Reason: nausea and vomiting) hydrocodone-acetaminophen 5-325 mg tablet 1 tablet PO Q4H PRN (Reason: pain) Qty: 10 0RF atorvastatin 10 mg tablet 10 mg PO HS magnesium citrate [Citroma] Solution 300 ml PO DAILY PRN (Reason: Constipation) dicyclomine 20 mg tablet 20 mg PO TID PRN (Reason: abdominal pain) Qty: 14 0RF Follow-up/Referrals: PHYSICIAN NOT ON STAFF,NONSTAFF [Primary Care Provider]
[2025-09-08 18:53] LABS: Hematocrit 33.8 % (37.0-47.0); Hemoglobin 10.8 g/dL (12.0-15.0)
[2025-09-08] MEDS: CIPROFLOXACIN 400 MG/D5W 200ML 200 ML 200 MG IVPB (19:44)
--- NOTE | 2025-09-08 19:48 | PC.NURSE ---
blood cultures were drawn before antibiotic was started.
[2025-09-08] MEDS: LACTATED RINGERS 1,000 ML 75 ML IV CONT (20:38)
[2025-09-08] MEDS: metroNIDAZOLE 500 MG/ISO 100ML 500 MG/100 ML BAG 100 MG IVPB (20:46)
--- NOTE | 2025-09-08 22:15 | WPCEDHO ---
ED Hand Off Checklist All vitals saved:yes IV Site documented:yes All med administrations documented:yes Triage Note Triage Note pt to ED from [facility] via 09/08/25 10:47 [facility] for c/o AMS and N/V. EMS reports they were called out non-emergently for N/V. EMS arrived and pt was alert to painful stimuli only, pt is normally A&OX3, pt does have HX of dementia. EMS says pt woke up this AM normal, had her breakfast and morning meds but facility found her and she had defecated herself and had 2 episodes of emesis. pt had episode of emesis upon arrival. EMS got a BG of 195 . HX T2DM, esophageal obstruction , dementia, HTN, dysphagia, cognitive communication deficit Allergies No Known Allergies Allergy (Verified 09/08/25 11:13) Active Medications including assessments/comments Lactated Ringer's (Lr - Lactated Ringers Iv) 1,000 mls @ 75 mls/hr IV CONT .[id number] QI Last Admin: 09/08/25 20:38 Dose: 75 mls/hr Documented By: ANASTACIA Infusion/Titration Document 09/08/25 20:38 EMKaden (Rec: 09/08/25 20:39 EMKaden [id number]) Intake IV Site Peripheral Access Right Antecubital Container Volume 1,000 Waste Amount 0 Dosing Infusion Rate 75 Cumulative Dose Not Applicable Increase/Decrease Started Elapsed Time Elapsed Time ( 0m minutes) Administered/Completed Medications Discontinued Medications Lactated Ringer's (Lr - Lactated Ringers Iv) 1,000 mls @ 999 mls/hr IV CONT .Q1H1M STA Stop: 09/08/25 13:49 Last Infusion: 09/08/25 14:32 Dose: Infused Documented By: Admin: 09/08/25 13:04 Dose: 999 mls/hr Documented By: CHRIS Ciprofloxacin/Dextrose (Cipro 400 Mg/D5w 200 Ml) 200 mls @ 200 mls/hr IVPB ONCE ONE Stop: 09/08/25 20:18 Last Infusion: 09/08/25 20:46 Dose: Infused Documented By: Admin: 09/08/25 19:44 Dose: 200 mls/hr Documented By: ANASTACIA Metronidazole (Flagyl 500 Mg/Iso Soln 100 Ml) 500 mg in 100 mls @ 100 mls/hr IVPB ONCE STA Stop: 09/08/25 20:18 Last Infusion: 09/08/25 21:47 Dose: Infused Documented By: Admin: 09/08/25 20:46 Dose: 100 mls/hr Documented By: EMW Ondansetron HCl (Ondansetron Inj 4 Mg/2 Ml Vial) 4 mg IV PUSH ONCE STA Stop: 09/08/25 11:00 Last Admin: 09/08/25 11:14 Dose: 4 mg Documented By: LARA Notes 09/08/25 19:48 Nurse Note by Priscilla Ramos blood cultures were drawn before antibiotic was started. Initialized on 09/08/25 19:48 - END OF NOTE Interventions/Assessments Cardiac Monitoring Start: 09/08/25 10:40 Freq: Status: Active Protocol: Document 09/08/25 13:06 LDD (Rec: 09/08/25 13:06 LDD [id number]) Pulmonary Nurse Practitioner Assessment Pulmonary Nurse Practitioner Yes Applied Pulse Rate (60-100) 98 EKG Rythm Sinus Rhythm EKG Ectopy PVC IV / Saline Lock, Insert Start: 09/08/25 11:12 Freq: STAT Status: Active Protocol: Document 09/08/25 11:24 LDD (Rec: 09/08/25 11:24 LDD [id number]) IV Assessment Peripheral Access Right Antecubital IV Catheter Access Initiated IV Insertion Date 09/08/25 IV Insertion Time 11:24 Catheter Gauge 18 IV Insertion 1 Attempts Ultrasound Used for No Placement IV Site Assessment WNL IV Care and WNL Maintenance PA: Cardiovascular Assessment Start: 09/08/25 10:40 Freq: Status: Active Protocol: Document 09/08/25 11:53 LDD (Rec: 09/08/25 11:53 LDD [id number]) Cardiovascular Assessment Cardiovascular Nausea,Vomiting Symptoms Skin Description Normal Color Heart Sounds Normal Jugular Vein None Distention PA: Neurological Assessment Start: 09/08/25 10:40 Freq: Status: Active Protocol: Document 09/08/25 11:51 LDD (Rec: 09/08/25 11:53 LDD [id number]) Neurological Assessment Level of Sleeping Consciousness Arousable to Deep Pain Orientation Unable to Assess Neurological Confusion,Incontinence Bowel/Bladder,Unresponsiveness Symptoms Unable to Redirect No Behavior Patient Unable to Comprehend Comprehension Memory Description Unable to Assess Ability to Maintain Unable to Assess Balance Facial Symmetry Unable to Assess Speech Pattern Unable to Assess Ability to Swallow Unable to Assess Tongue Position Unable to Assess Finger to Nose Test Activity Impossible Heel to Aragon Test Activity Impossible PA: Respiratory Assessment Start: 09/08/25 10:40 Freq: Status: Active Protocol: Document 09/08/25 11:51 LDD (Rec: 09/08/25 11:53 LDD [id number]) Oxygen Delivery Oxygen Delivery Room Air Pulse Oximetry (90- 98 100) Last Vital Signs Temperature 97.8 F 09/08/25 10:47 Pulse Rate 80 09/08/25 22:01 Respiratory Rate 18 09/08/25 22:01 Pulse Oximetry 99 09/08/25 22:01 Blood Pressure 147/75 H 09/08/25 22:01 Blood Pressure Mean 97 09/08/25 22:01 Blood Pressure Position Sitting 09/08/25 10:47 Oxygen Delivery Room Air 09/08/25 11:51 Weight 60 kg 09/08/25 10:47 Last Result - Abnormals Only Hgb 10.8 g/dL (12.0-15.0) L D 09/08/25 18:41 Hct 33.8 % (37.0-47.0) L 09/08/25 18:41 Neut % (Auto) 84.7 % (45.5-73.1) H 09/08/25 11:18 Lymph % (Auto) 9.0 % (18.3-44.2) L 09/08/25 11:18 Lymph # (Auto) 0.80 K/mm3 (0.9-3.2) L 09/08/25 11:18 Abs Immat Gran (auto) 0.04 K/mm3 (0.00-0.031) H 09/08/25 11:18 Absolute Neuts (auto) 7.5 K/mm3 (1.3-6.7) H 09/08/25 11:18 Carbon Dioxide 31 mmol/L (22-30) H 09/08/25 11:18 BUN 25 mg/dL (7-17) H D 09/08/25 11:18 Glucose 142 mg/dL (65-110) H 09/08/25 11:18 Urine Protein 1+ mg/dL (Negative) H 09/08/25 11:47 Urine Ketones Trace mg/dL (Negative) H 09/08/25 11:47 Urine Bilirubin 1+ (Negative) H 09/08/25 11:47 Leukocyte Esterase Rfl Trace KARISSA/UL (Negative) H 09/08/25 11:47
--- NOTE | 2025-09-08 22:44 | PC.NURSE ---
Patient arrived to room at 2235. Patient drowsy but arrousable. Patient refusing to answer questions at this time. Spoke with Priscilla from the ER and she stated that the patient was oriented x 1 but at one time was A&OX3. She stated that patient has been just sleeping since she came on shift. No family or belongings at bedside.
--- NOTE | 2025-09-08 23:32 | PC.NURSE ---
This RN spoke to Subhash soliman [facility] and gave update on pt room number.
[2025-09-09 01:00] VITALS: BP 104/81; PULSE 81; RESP 16; TEMP 36.5; O2SAT 94
--- NOTE | 2025-09-09 03:49 | P.HP_ITS ---
H&P: HPI History of Present Illness Date/Time: 09/09/25 03:49 Chief Complaint: Nausea and vomiting Narrative: 75-year-old with a past medical history of dementia, diverticulosis, hiatal hernia with esophageal ring who presented to the ER via EMS from [facility] due to nausea vomiting.The patient was evidently at her baseline and was able to eat breakfast and take her morning meds. But then nursing staff later found her with acute onset of loss of bowel incontinence and she had 2 episodes of emesis. It sounds like the patient became unresponsive after having an episode of emesis and was only responsive to painful stimuli per EMS report. She had a glucose of 195 in the field. By the time she arrived to the ER the patient was awake and conversant. But she did have another episode of emesis on arrival to the ER The patient is reportedly alert orient x[facility]. The patient had initial labs performed in the ER which were unremarkable. She was not having any other symptoms of illness no abdominal pain and no further vomiting. She received IV fluids and Zofran. Given abnormal labs she was prepared to be discharged back to the [facility] but while awaiting transport back to the [facility] the patient had a large mucousy bloody bowel movement. Subsequently a CT of the abdomen pelvis was obtained and demonstrated colitis. Repeat CBC was performed which demonstrated a hemoglobin that dropped to 10.8 but when compared to prior labs from April this was only slightly decreased from the value of 11.2 at that time. Subsequently the patient received a dose of Cipro and Flagyl and gastroenterology was consulted. The patient was admitted for IV antibiotic therapy in IV fluids. On review of patient's chart patient had had a colonoscopy in April a demonstrated diverticulosis and colon polyps. She also had an EGD at that time which demonstrated hiatal hernia and esophageal ring at which time esophageal ring was dilated. Review of Systems 2 Review of Systems: Unobtainable due to patient's history of dementia. [facility] Past Medical History Medical History (Updated 09/09/25 @ 04:35 by Linda Birch DO) Hiatal hernia Esophageal ring B12 deficiency Hyperlipidemia Depression Chronic constipation Pancreatic cyst Dementia Dysphagia History of hypertension Diabetes Surgical History Surgical History (Updated 09/09/25 @ 04:14 by Linda Birch DO) History of colonoscopy with polypectomy (06/04/24) 3 polyps removed with pathology demonstrating tubular adenoma History of esophagogastroduodenoscopy (EGD) (05/2024) Hx of cholecystectomy (04/2025) H/O cataract removal with insertion of prosthetic lens Family History Family History (Updated 09/09/25 @ 04:09 by Linda Birch DO) Other Unknown family medical history Social History Social History (Updated 09/09/25 @ 04:40 by Linda Birch DO) Social History: Patient is and Patient resides at [facility]. Patient is a poor historian but she reports that she has been at [facility] since 2023. She had 1 daughter who is . She used to smoke 1 pack of cigarettes per day but quit smoking reportedly around 2019. Patient denies history of alcohol use. Code status: Full code per [facility]entiary documentation Surrogate decision maker: Heath (son-in-law) Smoking status: Former smoker Alcohol intake: never Substance use: never Substance use type: does not use Lack of Transportation: No Lack of Food: Never True Current Housing: I Have Housing Concerned About Future Housing: No Difficulty Paying Gas/Electric Bills: No Difficulty Paying for Meds: No Currently Unemployed: No Education: High School Diploma/GED Difficulty w/ Childcare or Family Care: No Living arrangements: penitentiary Spiritual care concerns: No Meds Home Medications and Allergies Home Medications ?Medication ?Instructions ?Recorded ?Confirmed ?Type acetaminophen 650 mg 650 mg PO Q6H PRN pain 01/3009/08/25 History tablet,extended release bisacodyl 10 mg rectal suppository 10 mg RECTAL DAILY PRN Constipation 01/31/24 09/08/25 History bisacodyl 10 mg/30 mL enema (Fleet 5 mg RECTAL DAILY P RN Constipation 01/31/24 09/08/25 History Bisacodyl) cholecalciferol (vitamin D3) 10 2,000 unit PO DAILY 09/08/25 History mcg (400 unit) capsule ferrous sulfate 325 mg (65 mg 325 mg PO DAILY 01/31/24 09/08/25 History iron) tablet lisinopril 10 mg tablet 10 mg PO DAILY 01/31/2408/30 History magnesium hydroxide 400 mg/5 mL 30 ml PO DAILY PRN Con stipation 01/31/24 09/08/25 History oral suspension (Milk of Magnesia) multivitamin 1 tablet PO DAILY 01/31/24 1 11/09/24 History polyethylene glycol 3350 17 17 g PO DAILY PRN constipa tion 01/31/24 09/08/25 History gram/dose oral powder sennosides 8.6 mg capsule (senna) 8.6 mg PO DAILY PRN constipation 01/31/24 09/08/25 History atorvastatin 10 mg tablet 10 mg PO HS 05/29/24 5 History magnesium citrate (Citroma oral 300 ml PO DAILY PRN Co nstipation 05/29/24 09/08/25 History solution) cyanocobalamin (vitamin B-12) 500 mcg PO DAILY 5 09/08/25 History 1,000 mcg capsule dicyclomine 20 mg tablet 20 mg PO TID PRN abdominal p ain 05/17/25 09/08/25 Rx #14 tabs ondansetron 4 mg disintegrating 4 mg PO Q6-8H PRN naus ea and 05/17/25 09/08/25 History tablet vomiting sertraline 25 mg tablet 12.5 mg PO DAILY 05/17/25 History hydrocodone 5 mg-acetaminophen 325 1 tablet PO Q4H PRN pain #10 tabs 05/21/25 09/08/25 Rx mg tablet hydralazine 25 mg tablet 25 mg PO TID PRN hypertensio n 09/08/25 09/08/25 History ondansetron 4 mg disintegrating 4 mg PO Q8H PRN nausea and 09/08/25 Rx tablet vomiting #10 tabs Allergies Allergy/AdvReac Type Severity Reaction Status Date / Time No Known Allergies Allergy Verified 09/08/25 22:48 Vital Signs Vital Signs - 24 hr 09/08/25 10:47 09/08/25 11:02 09/08/25 11:43 Temperature 97.8 F Pulse Rate 93 105 H 100 Respiratory Rate 30 H 12 14 Blood Pressure 134/82 134/82 129/72 Pulse Oximetry 95 93 97 Oxygen Delivery Room Air 09/08/25 11:46 09/08/25 11:51 09/08/25 12:01 Temperature Pulse Rate 96 96 Respiratory Rate 16 16 Blood Pressure 132/64 126/58 L Pulse Oximetry 96 98 96 Oxygen Delivery Room Air 09/08/25 12:15 12/10/25 12:30 09/08/25 12:46 Temperature Pulse Rate 82 93 76 Respiratory Rate 15 17 25 H Blood Pressure 128/81 146/79 H 143/72 H Pulse Oximetry 97 96 97 Oxygen Delivery 09/08/25 13:01 09/08/25 13:06 09/08/25 13:16 Temperature Pulse Rate 90 98 95 Respiratory Rate 20 17 Blood Pressure 143/71 H 130/63 Pulse Oximetry 96 97 Oxygen Delivery 09/08/25 13:31 09/08/25 13:46 09/08/25 14:00 Temperature Pulse Rate 98 97 96 Respiratory Rate 21 H 20 20 Blood Pressure 167/71 H 146/114 H 151/87 H Pulse Oximetry 97 98 97 Oxygen Delivery 09/08/25 14:15 09/08/25 14:30 09/08/25 14:46 Temperature Pulse Rate 94 91 104 H Respiratory Rate 18 19 20 Blood Pressure 146/79 H 148/73 H 157/67 H Pulse Oximetry 97 96 96 Oxygen Delivery 09/08/25 15:01 09/08/25 15:15 09/08/25 18:54 Temperature Pulse Rate 98 102 H 91 Respiratory Rate 18 18 23 H Blood Pressure 146/67 H 152/79 H 126/73 Pulse Oximetry 96 97 97 Oxygen Delivery 09/08/25 19:00 09/08/25 19:15 09/08/25 19:17 Temperature Pulse Rate 90 89 85 Respiratory Rate 14 15 15 Blood Pressure 142/68 H Pulse Oximetry 91 Oxygen Delivery 09/08/25 19:46 09/08/25 20:00 09/08/25 21:01 Temperature Pulse Rate 85 85 85 Respiratory Rate 18 18 23 H Blood Pressure 145/83 H Pulse Oximetry 96 97 Oxygen Delivery 09/08/25 21:45 09/08/25 22:00 09/08/25 22:01 Temperature Pulse Rate 77 78 80 Respiratory Rate 19 18 18 Blood Pressure 147/75 H Pulse Oximetry 100 99 Oxygen Delivery 09/08/25 22:33 09/09/25 01:00 Temperature 97.7 F Pulse Rate 78 81 Respiratory Rate 17 16 Blood Pressure 147/75 H 104/81 Pulse Oximetry 95 94 Oxygen Delivery Exam 2 Narrative: Weight 58.6 kg BMI 23.6 Const: Other: Debilitated, thin body habitus HENMT: Other: Head is normocephalic atraumatic, upper dentures in place, edentulous in lower jaw, mucous membranes are tacky, no oral pharyngeal erythema Eyes: Other: Pupils are equal and reactive with evidence of bilateral lens implants, no scleral icterus, no conjunctival pallor Neck: Other: No JVD, no lymphadenopathy Resp: Other: Clear to auscultation bilaterally, no increased work of breathing Cardio: Other: Regular rate, regular rhythm, 2+ bilateral radial pedal pulses GI: Other: Soft, nontender, nondistended, normoactive bowel sounds : Other: Incontinent of urine Skin: Other: No pallor, non jaundice Neuro: Other: Alert oriented to person, place and month, patient is confused to the year and initially told me the year was 1984 Extrem: Other: No clubbing, cyanosis or edema, moves all extremities equally Psych: Other: Tearful, cooperative, follow simple commands, poor judgment and insight Results Labs Labs: Laboratory Tests 09/08/25 18:41 09/08/25 11:18 09/08/25 09/08/25 09/08/25 11:18 11:47 18:41 WBC 8.9 RBC 4.93 Hgb 14.1 10.8 L D Hct 43.8 33.8 L MCV 88.8 MCH 28.6 MCHC 32.2 RDW 13.7 Plt Count 249 MPV 9.5 Immature Gran % (Auto) 0.5 Neut % (Auto) 84.7 H Lymph % (Auto) 9.0 L [place] % (Auto) 5.0 Eos % (Auto) 0.5 Baso % (Auto) 0.3 Lymph # (Auto) 0.80 L [place] # (Auto) 0.4 Eos # (Auto) 0.0 Baso # (Auto) 0.0 Abs Immat Gran (auto) 0.04 H Absolute Neuts (auto) 7.5 H Absolute Nucleated RBC 0.000 Nucleated RBC % 0.0 PT 13.0 INR 1.0 APTT 25.6 Sodium 140 Potassium 4.4 Chloride 102 Carbon Dioxide 31 H Anion Gap 7 BUN 25 H D Creatinine 0.93 Estim Creat Clear Calc 36 Estimated GFR 59 Glucose 142 H Lactic Acid 1.2 Calcium 9.7 Total Bilirubin 0.5 AST 32 ALT 29 Alkaline Phosphatase 120 Total Protein 8.1 Albumin 4.5 Urine Color Dark yellow Urine Appearance Clear Urine pH 5.5 Ur Specific [place] 1.021 Urine Protein 1+ H Urine Glucose (UA) Negative Urine Ketones Trace H Ur Blood (Man) Negative Urine Nitrate Negative Urine Bilirubin 1+ H Urine Urobilinogen 1.0 Add Ur Microanalysis Reviewed Leukocyte Esterase Rfl Trace H Urine RBC 0-2 Urine WBC 0-5 Ur Squamous Epith Cells None seen Urine Bacteria None seen Urine Casts 6-10 Hyaline Casts Present C. difficile (PCR) Negative Blood Type Antibody Screen 09/08/25 19:41 WBC RBC Hgb Hct MCV MCH MCHC RDW Plt Count MPV Immature Gran % (Auto) Neut % (Auto) Lymph % (Auto) [place] % (Auto) Eos % (Auto) Baso % (Auto) Lymph # (Auto) [place] # (Auto) Eos # (Auto) Baso # (Auto) Abs Immat Gran (auto) Absolute Neuts (auto) Absolute Nucleated RBC Nucleated RBC % PT INR APTT Sodium Potassium Chloride Carbon Dioxide Anion Gap BUN Creatinine Estim Creat Clear Calc Estimated GFR Glucose Lactic Acid 0.9 Calcium Total Bilirubin AST ALT Alkaline Phosphatase Total Protein Albumin Urine Color Urine Appearance Urine pH Ur Specific [place] Urine Protein Urine Glucose (UA) Urine Ketones Ur Blood (Man) Urine Nitrate Urine Bilirubin Urine Urobilinogen Add Ur Microanalysis Leukocyte Esterase Rfl Urine RBC Urine WBC Ur Squamous Epith Cells Urine Bacteria Urine Casts Hyaline Casts C. difficile (PCR) Blood Type A Positive Antibody Screen Negative Impressions Head CT 09/08/25 11:27 IMPRESSION: 1. No acute intracranial process hemorrhage or large acute ischemic event. 2. Extensive chronic microvascular ischemic appearing white matter changes and probably old lacunar infarctions as above. Abdomen/Pelvis CT 09/08/25 18:35 IMPRESSION: 1. Mucosal and submucosal inflammation of the descending colon, sigmoid colon are noted with mildly distended proximal colon at the cecum. Findings are suggestive of acute colitis, with the differential between infectious and ischemic colitis. 2. Significant calcific atherosclerotic changes of distal abdominal aorta and iliac arteries. Moderate atherosclerotic changes of mesenteric arteries. 3. Severe degenerative disc changes of upper and mid lumbar discs. EKG:Test Date: 2025-09-08 11:31:27 Measurements Intervals [place] Rate: 94 P: 32 MA: 169 QRS: -58 QRSD: 79 T: 62 QT: 353 QTc: 442 Interpretive Statements SINUS RHYTHM WITH OCCASIONAL VENTRICULAR PREMATURE COMPLEXES LEFT AXIS DEVIATION LOW QRS VOLTAGE IN PRECORDIAL LEADS POSSIBLE ANTERIOR MYOCARDIAL INFARCTION , OF INDETERMINATE AGE BORDERLINE ST-T WAVE ABNORMALITY- HIGH LATERAL LEADS BASELINE ARTIFACT- I, II, III, AVR, AVL, AVF, V1-V2, V4 ABNORMAL ECG No previous ECG available for comparison Quality VTE Prophylaxis VTE prophylaxis: mechanical ordered (SCDs) Assessment and Plan Assessment and plan (1) Acute colitis: Code(s): K52.9 - Noninfective gastroenteritis and colitis, unspecified Status: Acute (2) Nausea & vomiting: Qualifiers: Vomiting type: unspecified Qualified Code(s): R11.2 - Nausea with vomiting, unspecified Code(s): R11.2 - Nausea with vomiting, unspecified Status: Acute (3) Altered mental status: Qualifiers: Altered mental status type: transient alteration of awareness Qualified Code(s): R40.4 - Transient alteration of awareness Code(s): R41.82 - Altered mental status, unspecified Status: Acute (4) Anemia: Qualifiers: Anemia type: unspecified type Qualified Code(s): D64.9 - Anemia, unspecified Code(s): D64.9 - Anemia, unspecified Status: Acute Plan Patient has acute colitis presumed to be infectious in origin. C diff PCR was negative. Stool cultures have been obtained and are pending. Patient received empiric antibiotic therapy with Cipro and Flagyl in the ER. Will switch antibiotics to Rocephin and Flagyl per antibiotic stewardship guidelines. He will continue patient on maintenance IV fluids at 75 mL an hour. Will repeat CBC and electrolyte panel in a.m.. Will place patient on a heart healthy diet as tolerated. Bloody stools are due to infection. Will monitor H&H. Type and screen has been obtained. Patient's altered mental status was transient nature is likely due to vasovagal episode of associated with her GI symptoms. She is confused and this is likely due to her dementia and may be slightly worse due to acute illness. Will resume home medications for depression. The patient does have a history of hypertension. Blood pressures are normal but given diarrhea and vomiting will hold lisinopril. Will monitor blood pressures. Patient has been admitted as observation status. MEDICAL DECISION MAKING NARRATIVE -Spoke with the ED provider in detail regarding patient's evaluation, workup and management -Patient seen and examined at bedside -Collaborated with patient's nurse at the bedside in detail and addressed all concerns -Labs, electrolytes, radiology, investigations and test results personally reviewed and interpreted unless otherwise specified -ED/Consult/Nursing/Ancilliary notes on the chart reviewed and appreciated -applicable past medical records and labs were reviewed and unless stated otherwise. -Spoke with patient at bedside and diagnosis, plan of care was discussed and questions answered. Hospitalist MIPS Advance Care Plan I have confirmed that the patient's Advanced Care Plan is present, code status is documented, or surrogate decision maker is listed in patient medical record.: Yes Medication Reconciliation I have utilized all available resources to obtain, update and review the patients current medications (includes all prescriptions, OTC, herbals, cannabis, and nutritional supplements).: Yes
[2025-09-09] MEDS: metroNIDAZOLE 500 MG/ISO 100ML 500 MG/100 ML BAG 100 MG IVPB ×3 (05:20→20:05)
[2025-09-09] MEDS: cefTRIAXone 1 GM in SODIUM CHLORIDE 0.9% IV 50 ML 100 ML IVPB (05:20)
[2025-09-09] MEDS: LACTATED RINGERS 1,000 ML 75 ML IV CONT ×2 (05:20→20:04)
[2025-09-09 06:00] VITALS: BP 127/72; PULSE 69; RESP 18; TEMP 36.3; O2SAT 97
[2025-09-09 06:26] LABS: Hematocrit 35.6 % (37.0-47.0); Hemoglobin 11.3 g/dL (12.0-15.0); Mean Corpuscular HGB Conc 31.7 g/dl (32-36); Mean Corpuscular Hemoglobin 28.5 pg (26-34); Mean Corpuscular Volume 89.7 fl (80-100); Platelet Count Result 194 k/mm3 (150-375); Red Blood Count 3.97 M/mm3 (4.2-5.4); White Blood Count 8.1 K/mm3 (4.5-10.0)
[2025-09-09 07:02] LABS: Anion Gap 4 mmol/L (4-12); Blood Urea Nitrogen 19 mg/dL (7-17); Calcium 8.5 mg/dL (8.4-10.2); Carbon Dioxide 29 mmol/L (22-30); Chloride 101 mmol/L (98-107); Estimated CRCL calculation 39 ml/min; Estimated Glomerular Filt Rate > 60; Glucose 107 mg/dL (65-110); Potassium 3.7 mmol/L (3.4-5.0); Sodium 134 mmol/L (137-145)
--- NOTE | 2025-09-09 08:29 | P.CONGI_ITS ---
Assessment and Plan Assessment and plan (1) Acute colitis: Code(s): K52.9 - Noninfective gastroenteritis and colitis, unspecified Status: Acute (2) Nausea & vomiting: Qualifiers: Vomiting type: unspecified Qualified Code(s): R11.2 - Nausea with vomiting, unspecified Code(s): R11.2 - Nausea with vomiting, unspecified Status: Acute (3) Anemia: Qualifiers: Anemia type: iron deficiency Iron deficiency anemia type: chronic blood loss Qualified Code(s): D50.0 - Iron deficiency anemia secondary to blood loss (chronic) Code(s): D64.9 - Anemia, unspecified Status: Acute (4) Hematochezia: Code(s): K92.1 - Melena Status: Acute Plan 1. Colitis/hematochezia/CASSI: Last colonoscopy 06/03/2024 at which time she was noted have a few diverticula in the sigmoid colon and tubular adenomatous colon polyps removed. Patient was last seen in the GI office by myself 05/07/2024 for anemia, weight loss and pancreatic lesion during that visit she was scheduled for an EGD and colonoscopy both of which showed no findings to explain her symptoms. During my visits with her limited subjective information was able to be obtained due to dementia. ER presentation today for nausea, vomiting and becoming unresponsive. Upon presentation the emergency room she was more alert and her workup was unremarkable, patient was given IV fluids and Zofran with the plan to discharge back to her correction. Upon waiting for transport the patient had a large bowel movement with mucus and blood. CT on the mucosal and submucosal inflammation of the descending colon, sigmoid colon are noted with mildly distended proximal colon at the cecum. Findings are suggestive of acute colitis, with the differential between infectious and ischemic colitis. C- Diff negative. Patient initially started on Cipro/Flagyl which was changed to Rocephin and Flagyl. H/H was normal on ER presentation but today Hgb 11, Hct 36, MCV 90, platelets 194. [employer] patient was on supplemental iron. Per RN the patient has been having BRBPR with and without BM's. * Patient on antibiotics, continue * likely secondary to acute infectious/ischemic colitis since no findings of chronic inflammatory process on EGD and colonoscopy May 2024. May also consider acute diverticular bleed as a source * Primary care team to continue monitoring H/H and transfused as needed if Hgb goes below 7 Thank you very much for allowing me to share in the care of this very nice patient. This report may have been done utilizing a voice recognition system. Attempts have been made to correct errors. However, there may be uncorrected grammatical, spelling, and recognition errors present. GI Consult Note Consult date/time: 09/09/25 08:29 Reason for consult: Colitis HPI: Huyen Nick is a 75 year old female with past medical surgical history of dementia, esophageal ring, HTN, diabetes, hiatal hernia, HLD, pancreatic cyst, depression, colon polyps and cholecystectomy. She presented to the emergency room 09/08 from [facility] following an episode of nausea, vomiting and becoming unresponsive. Once she got to the ER she was awake and initial labs were unremarkable. Patient was given IV fluids and Zofran and the plan was to discharge the patient back to the jail facility but while waiting for transport the patient had a large mucousy bloody bowel movement. GI has been consulted for colitis. Patient with dementia and unable to provide significant subjective information or past medical surgical history put when asked she denies any GI complaints. ENDOSCOPY HISTORY: EGD: 06/03/[address] Muro for weight loss and anemia Findings: The esophagus was examined mucosa was normal no esophagitis and no ulcers or masses A nonobstructing ring was present the esophageal cardia. A TTS balloon dilation was performed using an 18-20 mm balloon. Dilation time was 30 seconds with 18 and 19 mm then noted small expected tear and did not go up in size A medium hiatal hernia was found at the GE junction. The hiatal hernia. It depth of 33 cm to 36 cm from the incisors. This was probably cm in size The stomach at the body, cardia and fundus was examined and normal normal with no ulcers or masses. No gastritis The bulb and 2nd portion of duodenum was normal no ulcers or masses. No AVMs nothing to explain anemia COLONOSCOPY: 06/03/[address] Muro for anemia Findings: Diverticula in the sigmoid colon the diverticula were bleeding There was a single 2 mm polyp observed the ascending colon. Cold snare polypectomy was performed polyp was completely excised There were 2 3 mm polyps observed in the transverse colon. Multiple cold snare polypectomies were performed the polyps were completely excised The terminal ileum and colon was examined was otherwise normal, no colitis no AVMs Bx results: A. Ascending colon polyp, polypectomy: - Tubular adenoma B. Transverse colon polyps (x2), polypectomies: - Tubular adenomas (x2) LABS AND STOOL STUDIES: Labs 09/09/2025: Sodium 134, potassium 3.7, BUN 19, creatinine 0.85, GFR >60, calcium 8.5 WBC 8, Hgb 11, Hct 36, MCV 90, platelets 194, INR 1.0 Total bilirubin 0.5, AST 32, ALT 29, Alkaline Phos 120, albumin 4.5 C-Diff negative IMAGING: CT abd/pelvis w/contrast 09/08/2025: IMPRESSION: 1. Mucosal and submucosal inflammation of the descending colon, sigmoid colon are noted with mildly distended proximal colon at the cecum. Findings are suggestive of acute colitis, with the differential between infectious and ischemic colitis. 2. Significant calcific atherosclerotic changes of distal abdominal aorta and iliac arteries. Moderate atherosclerotic changes of mesenteric arteries. 3. Severe degenerative disc changes of upper and mid lumbar discs. HIDA scan 05/17/2025: FINDINGS: There is normal clearance of radiotracer from the blood pool. There is homogeneous tracer uptake by the liver. Activity progresses through the common bile duct to the duodenum by 40 minutes. There is progressive activity clearance with the majority of activity seen within the bowels on the 4 hour delayed imaging. No evident activity identified in the region of the gallbladder. IMPRESSION: 1. Patent common bile duct with no evident gallbladder activity over the course of 4 hours of imaging which would be consistent with acute cholecystitis. False positives can be seen with either inadequate fasting prior to the study or prolonged fasting of greater than 24 hours. Abdominal Ultrasound 05/17/2025: IMPRESSION: Limited evaluation of the pancreas secondary to overlying bowel gas Cholelithiasis, with moderate gallbladder wall thickening without pericholecystic fluid or gallbladder wall hyperemia. CT abd/pelvis 05/17/2025: Impression: Cholelithiasis. Minimal intrahepatic biliary dilatation, nonspecific. Correlate with LFTs. 9 mm cystic mass of the pancreas, as detailed above, stable from prior exam, most likely benign. MRCP 02/28/2024: IMPRESSION: 1. Cystic lesions of the pancreas measuring up to 18 mm. The differential diagnosis includes pseudocyst, intraductal papillary mucinous neoplasm (IPMN), mucinous cystic neoplasm (MCN), serous cystadenoma, and neuroendocrine tumor. Abdomen MRI without and with contrast is recommended 6 months. 2. Cholelithiasis. 3. Small sliding hiatal hernia. Review of Systems 2 Review of Systems: ROS unobtainable: Yes unobtainable due to medical condition and unobtainable due to mental status [facility] Past Medical History Medical History (Updated 09/09/25 @ 09:09 by Maisha Justice APRN) Hiatal hernia Esophageal ring B12 deficiency Hyperlipidemia Depression Chronic constipation Pancreatic cyst Dementia Dysphagia History of hypertension Diabetes Surgical History Surgical History (Updated 09/09/25 @ 04:14 by Linda Birch DO) History of colonoscopy with polypectomy (06/04/24) 3 polyps removed with pathology demonstrating tubular adenoma History of esophagogastroduodenoscopy (EGD) (05/2024) Hx of cholecystectomy (04/2025) H/O cataract removal with insertion of prosthetic lens Family History Family History (Updated 09/09/25 @ 04:09 by Linda Birch DO) Other Unknown family medical history Social History Social History (Updated 09/09/25 @ 04:40 by Linda Birch DO) Social History: Patient is and Patient resides at [facility]. Patient is a poor historian but she reports that she has been at [facility] since 2023. She had 1 daughter who is . She used to smoke 1 pack of cigarettes per day but quit smoking reportedly around 2019. Patient denies history of alcohol use. Code status: Full code per correction documentation Surrogate decision maker: Heath (son-in-law) Smoking status: Former smoker Alcohol intake: never Substance use: never Substance use type: does not use Lack of Transportation: No Lack of Food: Never True Current Housing: I Have Housing Concerned About Future Housing: No Difficulty Paying Gas/Electric Bills: No Difficulty Paying for Meds: No Currently Unemployed: No Education: High School Diploma/GED Difficulty w/ Childcare or Family Care: No Living arrangements: correction Spiritual care concerns: No Meds Home Medications and Allergies Home Medications ?Medication ?Instructions ?Recorded ?Confirmed ?Type acetaminophen 650 mg 650 mg PO Q6H PRN pain 01/3009/08/25 History tablet,extended release bisacodyl 10 mg rectal suppository 10 mg RECTAL DAILY PRN Constipation 01/31/24 09/08/25 History bisacodyl 10 mg/30 mL enema (Fleet 5 mg RECTAL DAILY P RN Constipation 01/31/24 09/08/25 History Bisacodyl) cholecalciferol (vitamin D3) 10 2,000 unit PO DAILY 09/08/25 History mcg (400 unit) capsule ferrous sulfate 325 mg (65 mg 325 mg PO DAILY 01/31/24 09/08/25 History iron) tablet lisinopril 10 mg tablet 10 mg PO DAILY 01/31/2408/30 History magnesium hydroxide 400 mg/5 mL 30 ml PO DAILY PRN Con stipation 01/31/24 09/08/25 History oral suspension (Milk of Magnesia) multivitamin 1 tablet PO DAILY 01/31/24 1 11/09/24 History polyethylene glycol 3350 17 17 g PO DAILY PRN constipa tion 01/31/24 09/08/25 History gram/dose oral powder sennosides 8.6 mg capsule (senna) 8.6 mg PO DAILY PRN constipation 01/31/24 09/08/25 History atorvastatin 10 mg tablet 10 mg PO HS 05/29/24 5 History magnesium citrate (Citroma oral 300 ml PO DAILY PRN Co nstipation 05/29/24 09/08/25 History solution) cyanocobalamin (vitamin B-12) 500 mcg PO DAILY 5 09/08/25 History 1,000 mcg capsule dicyclomine 20 mg tablet 20 mg PO TID PRN abdominal p ain 05/17/25 09/08/25 Rx #14 tabs ondansetron 4 mg disintegrating 4 mg PO Q6-8H PRN naus ea and 05/17/25 09/08/25 History tablet vomiting sertraline 25 mg tablet 12.5 mg PO DAILY 05/17/25 History hydrocodone 5 mg-acetaminophen 325 1 tablet PO Q4H PRN pain #10 tabs 05/21/25 09/08/25 Rx mg tablet hydralazine 25 mg tablet 25 mg PO TID PRN hypertensio n 09/08/25 09/08/25 History ondansetron 4 mg disintegrating 4 mg PO Q8H PRN nausea and 09/08/25 Rx tablet vomiting #10 tabs Allergies Allergy/AdvReac Type Severity Reaction Status Date / Time No Known Allergies Allergy Verified 09/09/25 14:50 Vital Signs Vital Signs - 24 hr 09/08/25 10:47 09/08/25 11:02 09/08/25 11:43 Temperature 97.8 F Pulse Rate 93 105 H 100 Respiratory Rate 30 H 12 14 Blood Pressure 134/82 134/82 129/72 Pulse Oximetry 95 93 97 Oxygen Delivery Room Air 09/08/25 11:46 09/08/25 11:51 09/08/25 12:01 Temperature Pulse Rate 96 96 Respiratory Rate 16 16 Blood Pressure 132/64 126/58 L Pulse Oximetry 96 98 96 Oxygen Delivery Room Air 09/08/25 12:15 09/08/25 12:30 09/08/25 12:46 Temperature Pulse Rate 82 93 76 Respiratory Rate 15 17 25 H Blood Pressure 128/81 146/79 H 143/72 H Pulse Oximetry 97 96 97 Oxygen Delivery 09/08/25 13:01 09/08/25 13:06 09/08/25 13:16 Temperature Pulse Rate 90 98 95 Respiratory Rate 20 17 Blood Pressure 143/71 H 130/63 Pulse Oximetry 96 97 Oxygen Delivery 09/08/25 13:31 09/08/25 13:46 09/08/25 14:00 Temperature Pulse Rate 98 97 96 Respiratory Rate 21 H 20 20 Blood Pressure 167/71 H 146/114 H 151/87 H Pulse Oximetry 97 98 97 Oxygen Delivery 09/08/25 14:15 09/08/25 14:30 09/08/25 14:46 Temperature Pulse Rate 94 91 104 H Respiratory Rate 18 19 20 Blood Pressure 146/79 H 148/73 H 157/67 H Pulse Oximetry 97 96 96 Oxygen Delivery 09/08/25 15:01 09/08/25 15:15 09/08/25 18:54 Temperature Pulse Rate 98 102 H 91 Respiratory Rate 18 18 23 H Blood Pressure 146/67 H 152/79 H 126/73 Pulse Oximetry 96 97 97 Oxygen Delivery 09/08/25 19:00 09/08/25 19:15 09/08/25 19:17 Temperature Pulse Rate 90 89 85 Respiratory Rate 14 15 15 Blood Pressure 142/68 H Pulse Oximetry 91 Oxygen Delivery 09/08/25 19:46 09/08/25 20:00 09/08/25 21:01 Temperature Pulse Rate 85 85 85 Respiratory Rate 18 18 23 H Blood Pressure 145/83 H Pulse Oximetry 96 97 Oxygen Delivery 09/08/25 21:45 09/08/25 22:00 09/08/25 22:01 Temperature Pulse Rate 77 78 80 Respiratory Rate 19 18 18 Blood Pressure 147/75 H Pulse Oximetry 100 99 Oxygen Delivery 09/08/25 22:33 09/09/25 01:00 09/09/25 06:00 Temperature 97.7 F 97.4 F L Pulse Rate 78 81 69 Respiratory Rate 17 16 18 Blood Pressure 147/75 H 104/81 127/72 Pulse Oximetry 95 94 97 Oxygen Delivery Results Labs 09/09/25 06:03 09/09/25 06:03 Labs: Short CBC 09/08/25 09/08/25 09/09/25 Range/Units 11:18 18:41 06:03 WBC 8.9 8.1 (4.5-10.0) K/mm3 Hgb 14.1 10.8 L D 11.3 L (12.0-15.0) g/dL Hct 43.8 33.8 L 35.6 L (37.0-47.0) % Plt Count 249 194 (150-375) k/mm3 [facility] 09/08/25 09/09/25 11:18 06:03 Sodium 140 134 L Potassium 4.4 3.7 Chloride 102 101 Carbon Dioxide 31 H 29 BUN 25 H D 19 H Creatinine 0.93 0.85 Glucose 142 H 107 Calcium 9.7 8.5 Liver Function 09/08/25 Range/Units 11:18 Total Bilirubin 0.5 (0.2-1.3) mg/dL AST 32 (14-36) U/L ALT 29 (6-35) U/L Alkaline Phosphatase 120 (38-126) U/L Albumin 4.5 (3.5-5.1) g/dL Urine 09/08/25 Range/Units 11:47 Urine Color Dark yellow (Yellow) Urine Appearance Clear (Clear) Urine pH 5.5 (5.0-9.0) Ur Specific [place] 1.021 (1.001-1.035) Urine Protein 1+ H (Negative) mg/dL Urine Glucose (UA) Negative (Negative) mg/dL
[2025-09-09] MEDS: CHOLECALCIFEROL (VITAMIN D3) 25 MCG (1,000 UNITS) TABLET 50 MCG PO (09:48)
[2025-09-09] MEDS: MULTIVITAMINS THERAPEUTIC TAB (*BKC) 1 TABLET PO (09:48)
[2025-09-09] MEDS: CYANOCOBALAMIN 500 MCG TABLET PO (09:48)
[2025-09-09] MEDS: FERROUS SULFATE 325 MG TABLET BY MOUTH (09:48)
--- NOTE | 2025-09-09 13:56 | PM.IMPN2 ---
Assessment and Plan Assessment and Plan (1) Acute colitis: Code(s): K52.9 - Noninfective gastroenteritis and colitis, unspecified Status: Acute Assessment and Plan: patient was sent to the ER after she had an acute onset of diarrhea and emesis with loss of consciousness at her care home s/p CT abdomen and pelvis presumed to be infectious in origin C. diff PCR negative stool cultures are pending s/p IV cipro and flagyl in the ER continue IV ceftriaxone and Flagyl IV fluids monitor H&H GI consulted AM labs (2) Nausea & vomiting: Qualifiers: Vomiting type: unspecified Qualified Code(s): R11.2 - Nausea with vomiting, unspecified Code(s): R11.2 - Nausea with vomiting, unspecified Status: Acute Assessment and Plan: anti-emetics PRN IV fluids AM labs (3) Altered mental status: Qualifiers: Altered mental status type: transient alteration of awareness Qualified Code(s): R40.4 - Transient alteration of awareness Code(s): R41.82 - Altered mental status, unspecified Status: Acute Assessment and Plan: Patient's altered mental status was transient in nature and is likely due to vasovagal episode associated with her GI symptoms patient is alert and confused which is likely due to her dementia monitor mental status closely (4) Anemia: Qualifiers: Anemia type: iron deficiency Iron deficiency anemia type: chronic blood loss Qualified Code(s): D50.0 - Iron deficiency anemia secondary to blood loss (chronic) Code(s): D64.9 - Anemia, unspecified Status: Acute Assessment and Plan: Patient's baseline hgb appears to be around 12 after recieving IV fluids patient's hgb is 10.8 Hgb stable this Am at 11.3 continue patient's home ferrous sulfate daily monitor H&H closely Consultations Consultations: I have discussed the care of this pt with the consulting providers. Subjective Date/time seen: 09/09/25 13:56 Interval history: Patient seen for a follow up visit. Patient lying in bed, in no acute distress. Patient denies acute pain. Patient tolerating diet. GI consulted. Continue IV Rocephin and IV Flagyl. Stool cultures pending. Monitor H&H, appears stable at this time. Review of Systems Review of Systems: All systems reviewed & are unremarkable except as noted in HPI and below Exam Const: General: comfortable and no acute distress HENMT: Face/Nose/Sinus: Normal nares present Mouth: Yes moist mucous membranes Eyes: General: appearance normal, both eyes and all related structures Sclera: sclerae normal Neck: Neck: supple Resp: Effort & Inspection: normal respiratory effort Auscultation: clear to auscultation bilaterally Cardio: Rate: regular rate Rhythm: regular rhythm GI: GI Palp: Yes Soft to palpation Auscultation: normal bowel sounds Skin: General skin exam: normal color and no rashes or lesions noted Neuro: Speech: normal speech Motor exam (neuro): 5/5 motor strength present throughout Sensory Exam: normal sensation Extrem: General: normal to inspection Psych: Affect: normal affect Other: oriented x 2, dementia Objective Data Vital Signs Vital Signs: Vital Signs - 24 hr 09/08/25 14:00 09/08/25 14:15 09/08/25 14:30 Temperature Pulse Rate 96 94 91 Respiratory Rate 20 18 19 Blood Pressure 151/87 H 146/79 H 148/73 H Pulse Oximetry 97 97 96 09/08/25 14:46 09/08/25 15:01 09/08/25 15:15 Temperature Pulse Rate 104 H 98 102 H Respiratory Rate 20 18 18 Blood Pressure 157/67 H 146/67 H 152/79 H Pulse Oximetry 96 96 97 09/08/25 18:54 09/08/25 19:00 09/08/25 19:15 Temperature Pulse Rate 91 90 89 Respiratory Rate 23 H 14 15 Blood Pressure 126/73 Pulse Oximetry 97 09/08/25 19:17 09/08/25 19:46 09/08/25 20:00 Temperature Pulse Rate 85 85 85 Respiratory Rate 15 18 18 Blood Pressure 142/68 H Pulse Oximetry 91 96 97 09/08/25 21:01 09/08/25 21:45 09/08/25 22:00 Temperature Pulse Rate 85 77 78 Respiratory Rate 23 H 19 18 Blood Pressure 145/83 H Pulse Oximetry 100 09/08/25 22:01 09/08/25 22:33 09/09/25 01:00 Temperature 97.7 F Pulse Rate 80 78 81 Respiratory Rate 18 17 16 Blood Pressure 147/75 H 147/75 H 104/81 Pulse Oximetry 99 95 94 09/09/25 06:00 Temperature 97.4 F L Pulse Rate 69 Respiratory Rate 18 Blood Pressure 127/72 Pulse Oximetry 97 Intake/Output Intake/Output: Intake & Output 09/06/25 09/07/25 09/08/25 09/09/25 23:59 23:59 23:59 23:59 Intake Total 1300 1232.5 Output Total 50 Balance 1250 1232.5 Meds/Results Medications: Active Medications Generic Name Dose Route Start Last Admin Trade Name Freq PRN Reason Stop Dose Admin Hydrocodone Bitart/Acetaminophen 1 tab 09/09/25 03:49 Hydrocodone/Acetaminophen (*Crx) 5-325 Mg Tablet PO Q4H PRN pain 7-10 Cyanocobalamin 500 mcg 09/09/25 09:00 09/09/25 09:48 Cyanocobalamin 500 Mcg Tablet PO 500 mcg DAILY QI Administration Dicyclomine HCl 20 mg 09/09/25 03:49 Dicyclomine Hcl 10 Mg Capsule PO TID PRN abdominal pain Ferrous Sulfate 325 mg 09/09/25 09:00 09/09/25 09:48 Ferrous Sulfate 325 Mg Tablet BY MOUTH 325 mg DAILY QI Administration Lactated Ringer's 1,000 mls @ 75 mls/hr 09/08/25 20:00 09/09/25 05:20 Lr - Lactated Ringers Iv IV CONT 75 mls/hr .[id number] QI Administration Ceftriaxone Sodium 1 gm/ 50 mls @ 100 mls/hr 09/09/25 05:00 09/09/25 05:20 Sodium Chloride IVPB 100 mls/hr Q24H QI Administration Metronidazole 500 mg in 100 mls @ 100 mls/hr 09/09/25 05:00 09/09/25 12:46 Flagyl 500 Mg/Iso Soln 100 Ml IVPB 100 mls/hr Q8H QI Administration Multivitamins Therapeutic 1 tablet 09/09/25 09:00 09/09/25 09:48 Multivitamins Therapeutic Tab (*Bkc) PO 1 tablet DAILY QI Administration Sertraline HCl 12.5 mg 09/09/25 09:00 Sertraline Hcl 12.5 Mg Tablet PO DAILY QI Vitamin D 50 mcg 09/09/25 09:00 09/09/25 09:48 Cholecalciferol (Vitamin D3) 25 Mcg (1,000 Units) Tablet PO 50 mcg DAILY QI Administration Radiology Results: ITS Impressions Head CT 09/08/25 11:27 IMPRESSION: 1. No acute intracranial process hemorrhage or large acute ischemic event. 2. Extensive chronic microvascular ischemic appearing white matter changes and probably old lacunar infarctions as above. Abdomen/Pelvis CT 09/08/25 18:35 IMPRESSION: 1. Mucosal and submucosal inflammation of the descending colon, sigmoid colon are noted with mildly distended proximal colon at the cecum. Findings are suggestive of acute colitis, with the differential between infectious and ischemic colitis. 2. Significant calcific atherosclerotic changes of distal abdominal aorta and iliac arteries. Moderate atherosclerotic changes of mesenteric arteries. 3. Severe degenerative disc changes of upper and mid lumbar discs. Labs Labs: Laboratory Results - last 24 hr 09/08/25 09/08/25 09/09/25 18:41 19:41 06:03 WBC 8.1 RBC 3.97 L Hgb 10.8 L D 11.3 L Hct 33.8 L 35.6 L MCV 89.7 MCH 28.5 MCHC 31.7 L RDW 13.5 Plt Count 194 MPV 9.6 Sodium 134 L Potassium 3.7 Chloride 101 Carbon Dioxide 29 Anion Gap 4 BUN 19 H Creatinine 0.85 Estim Creat Clear Calc 39 Estimated GFR > 60 Glucose 107 Lactic Acid 0.9 Calcium 8.5 Blood Type A Positive Antibody Screen Negative Quality VTE Prophylaxis VTE prophylaxis: mechanical ordered
[2025-09-09 14:00] VITALS: BP 124/57; PULSE 79; RESP 18; TEMP 36.3; O2SAT 94
[2025-09-09] MEDS: SERTRALINE HCL 12.5 MG TABLET PO (17:50)
[2025-09-09 22:00] VITALS: BP 135/64; PULSE 77; RESP 20; TEMP 37.3; O2SAT 95
[2025-09-10 04:06] VITALS: BP 133/68; PULSE 78; RESP 20; TEMP 37; O2SAT 96
[2025-09-10] MEDS: cefTRIAXone 1 GM in SODIUM CHLORIDE 0.9% IV 50 ML 100 ML IVPB (05:16)
[2025-09-10] MEDS: metroNIDAZOLE 500 MG/ISO 100ML 500 MG/100 ML BAG 100 MG IVPB ×3 (05:17→20:32)
[2025-09-10 06:26] LABS: Hematocrit 33.4 % (37.0-47.0); Hemoglobin 10.7 g/dL (12.0-15.0); Immature Granulocyte Percent A 0.3 % (0-0.5); Lymphocytes Absolute Auto 1.02 K/mm3 (0.9-3.2); Mean Corpuscular HGB Conc 32.0 g/dl (32-36); Mean Corpuscular Hemoglobin 28.7 pg (26-34); Mean Corpuscular Volume 89.5 fl (80-100); Nucleated Red Blood Cells Absolute Auto 0.000 K/mm3 (0.0-0.012); Nucleated Red Blood Cells Perc 0.0 % (0.0-0.2); Platelet Count Result 186 k/mm3 (150-375); Red Blood Count 3.73 M/mm3 (4.2-5.4); White Blood Count 6.3 K/mm3 (4.5-10.0)
[2025-09-10 06:34] VITALS: BP 133/68; PULSE 78; RESP 20; TEMP 37; O2SAT 96
[2025-09-10 06:54] LABS: Alanine Aminotransferase 17 U/L (6-35); Albumin Level 3.3 g/dL (3.5-5.1); Alkaline Phosphatase 80 U/L (38-126); Anion Gap 2 mmol/L (4-12); Aspartate Amino Transferase 25 U/L (14-36); Bilirubin,Total 0.4 mg/dL (0.2-1.3); Blood Urea Nitrogen 14 mg/dL (7-17); Calcium 8.5 mg/dL (8.4-10.2); Carbon Dioxide 30 mmol/L (22-30); Chloride 103 mmol/L (98-107); Estimated CRCL calculation 41 ml/min; Estimated Glomerular Filt Rate > 60; Glucose 106 mg/dL (65-110); Potassium 3.6 mmol/L (3.4-5.0); Sodium 135 mmol/L (137-145); Total Protein 6.0 g/dL (6.3-8.2)
[2025-09-10] MEDS: FERROUS SULFATE 325 MG TABLET BY MOUTH (08:34)
[2025-09-10] MEDS: CHOLECALCIFEROL (VITAMIN D3) 25 MCG (1,000 UNITS) TABLET 50 MCG PO (08:34)
[2025-09-10] MEDS: CYANOCOBALAMIN 500 MCG TABLET PO (08:34)
[2025-09-10] MEDS: MULTIVITAMINS THERAPEUTIC TAB (*BKC) 1 TABLET PO (08:34)
[2025-09-10] MEDS: SERTRALINE HCL 12.5 MG TABLET PO (08:34)
--- NOTE | 2025-09-10 10:31 | PM.IMPN2 ---
Assessment and Plan Assessment and Plan (1) Acute colitis: Code(s): K52.9 - Noninfective gastroenteritis and colitis, unspecified Status: Acute Assessment and Plan: patient was sent to the ER after she had an acute onset of diarrhea and emesis with loss of consciousness at her longterm s/p CT abdomen and pelvis presumed to be infectious in origin C. diff PCR negative stool cultures are pending s/p IV cipro and flagyl in the ER continue IV ceftriaxone and Flagyl, switch to PO antibiotics on discharge IV fluids, will d/c as patient is tolerating diet monitor H&H GI following, no plan for scopes this admission AM labs PT/OT ordered if patient continues to improve and Hgb remains stable, will discharge tomorrow (2) Nausea & vomiting: Qualifiers: Vomiting type: unspecified Qualified Code(s): R11.2 - Nausea with vomiting, unspecified Code(s): R11.2 - Nausea with vomiting, unspecified Status: Acute Assessment and Plan: anti-emetics PRN IV fluids AM labs (3) Altered mental status: Qualifiers: Altered mental status type: transient alteration of awareness Qualified Code(s): R40.4 - Transient alteration of awareness Code(s): R41.82 - Altered mental status, unspecified Status: Acute Assessment and Plan: Patient's altered mental status was transient in nature and is likely due to vasovagal episode associated with her GI symptoms patient is alert and confused which is likely due to her dementia monitor mental status closely (4) Anemia: Qualifiers: Anemia type: iron deficiency Iron deficiency anemia type: chronic blood loss Qualified Code(s): D50.0 - Iron deficiency anemia secondary to blood loss (chronic) Code(s): D64.9 - Anemia, unspecified Status: Acute Assessment and Plan: Patient's baseline hgb appears to be around 12 after recieving IV fluids patient's hgb is 10.8 Hgb stable this Am at 11.3 continue patient's home ferrous sulfate daily monitor H&H closely Consultations Consultations: I have discussed the care of this pt with the consulting providers. Subjective Date/time seen: 09/10/25 10:31 Interval history: Patient seen for a follow up visit. Patient sitting in bed, in no acute distress. Patient denies acute pain. Patient tolerating diet. Per nursing patient had BRBPR yesterday, none noted so far today. GI following. Stool culture pending. Continues on IV ceftriaxone and IV Flagyl. PT/OT to eval and treat. Plan for discharge back to longterm tomorrow if hemoglobin remains stable. Review of Systems Review of Systems: All systems reviewed & are unremarkable except as noted in HPI and below Exam Const: General: comfortable and no acute distress HENMT: Face/Nose/Sinus: Normal nares present Mouth: Yes moist mucous membranes Eyes: General: appearance normal, both eyes and all related structures Sclera: sclerae normal Neck: Neck: supple Resp: Effort & Inspection: normal respiratory effort Auscultation: clear to auscultation bilaterally Cardio: Rate: regular rate Rhythm: regular rhythm GI: GI Palp: Yes Soft to palpation Auscultation: normal bowel sounds Skin: General skin exam: normal color and no rashes or lesions noted Neuro: Speech: normal speech Motor exam (neuro): 5/5 motor strength present throughout Sensory Exam: normal sensation Extrem: General: normal to inspection Psych: Affect: normal affect Other: oriented x 2, dementia Objective Data Vital Signs Vital Signs: Vital Signs - 24 hr 09/09/25 14:00 09/09/25 20:00 09/09/25 22:00 Temperature 97.3 F L 99.1 F Pulse Rate 79 77 Respiratory Rate 18 20 Blood Pressure 124/57 L 135/64 Pulse Oximetry 94 95 Oxygen Delivery Room Air 09/10/25 04:06 09/10/25 06:34 09/10/25 08:00 Temperature 98.6 F 98.6 F Pulse Rate 78 78 Respiratory Rate 20 20 Blood Pressure 133/68 133/68 Pulse Oximetry 96 96 Oxygen Delivery Room Air Intake/Output Intake/Output: Intake & Output 09/07/25 09/08/25 09/09/25 09/10/25 23:59 23:59 23:59 23:59 Intake Total 1300 2922.5 300 Output Total 50 Balance 1250 2922.5 300 Meds/Results Medications: Active Medications Generic Name Dose Route Start Last Admin Trade Name Freq PRN Reason Stop Dose Admin Hydrocodone Bitart/Acetaminophen 1 tab 09/09/25 03:49 Hydrocodone/Acetaminophen (*Crx) 5-325 Mg Tablet PO Q4H PRN pain 7-10 Cyanocobalamin 500 mcg 09/09/25 09:00 09/10/25 08:34 Cyanocobalamin 500 Mcg Tablet PO 500 mcg DAILY QI Administration Dicyclomine HCl 20 mg 09/09/25 03:49 Dicyclomine Hcl 10 Mg Capsule PO TID PRN abdominal pain Ferrous Sulfate 325 mg 09/09/25 09:00 09/10/25 08:34 Ferrous Sulfate 325 Mg Tablet BY MOUTH 325 mg DAILY QI Administration Lactated Ringer's 1,000 mls @ 75 mls/hr 09/08/25 20:00 09/09/25 20:04 Lr - Lactated Ringers Iv IV CONT 75 mls/hr .[id number] QI Administration Ceftriaxone Sodium 1 gm/ 50 mls @ 100 mls/hr 09/09/25 05:00 09/10/25 05:16 Sodium Chloride IVPB 100 mls/hr Q24H QI Administration Metronidazole 500 mg in 100 mls @ 100 mls/hr 09/09/25 05:00 09/10/25 05:17 Flagyl 500 Mg/Iso Soln 100 Ml IVPB 100 mls/hr Q8H QI Administration Multivitamins Therapeutic 1 tablet 09/09/25 09:00 09/10/25 08:34 Multivitamins Therapeutic Tab (*Bkc) PO 1 tablet DAILY QI Administration Sertraline HCl 12.5 mg 09/09/25 09:00 09/10/25 08:34 Sertraline Hcl 12.5 Mg Tablet PO 12.5 mg DAILY QI Administration Vitamin D 50 mcg 09/09/25 09:00 09/10/25 08:34 Cholecalciferol (Vitamin D3) 25 Mcg (1,000 Units) Tablet PO 50 mcg DAILY QI Administration Radiology Results: ITS Impressions Head CT 09/08/25 11:27 IMPRESSION: 1. No acute intracranial process hemorrhage or large acute ischemic event. 2. Extensive chronic microvascular ischemic appearing white matter changes and probably old lacunar infarctions as above. Abdomen/Pelvis CT 09/08/25 18:35 IMPRESSION: 1. Mucosal and submucosal inflammation of the descending colon, sigmoid colon are noted with mildly distended proximal colon at the cecum. Findings are suggestive of acute colitis, with the differential between infectious and ischemic colitis. 2. Significant calcific atherosclerotic changes of distal abdominal aorta and iliac arteries. Moderate atherosclerotic changes of mesenteric arteries. 3. Severe degenerative disc changes of upper and mid lumbar discs. Labs Labs: Laboratory Results - last 24 hr 09/10/25 05:48 WBC 6.3 RBC 3.73 L Hgb 10.7 L Hct 33.4 L MCV 89.5 MCH 28.7 MCHC 32.0 RDW 13.3 Plt Count 186 MPV 9.8 Immature Gran % (Auto) 0.3 Neut % (Auto) 76.0 H Lymph % (Auto) 16.2 L [place] % (Auto) 6.2 Eos % (Auto) 1.0 Baso % (Auto) 0.3 Lymph # (Auto) 1.02 [place] # (Auto) 0.4 Eos # (Auto) 0.1 Baso # (Auto) 0.0 Abs Immat Gran (auto) 0.02 Absolute Neuts (auto) 4.8 Absolute Nucleated RBC 0.000 Nucleated RBC % 0.0 Sodium 135 L Potassium 3.6 Chloride 103 Carbon Dioxide 30 Anion Gap 2 L BUN 14 D Creatinine 0.81 Estim Creat Clear Calc 41 Estimated GFR > 60 Glucose 106 Calcium 8.5 Total Bilirubin 0.4 AST 25 ALT 17 Alkaline Phosphatase 80 Total Protein 6.0 L Albumin 3.3 L Quality VTE Prophylaxis VTE prophylaxis: mechanical ordered
[2025-09-10 14:00] VITALS: BP 145/63; PULSE 66; RESP 20; TEMP 36.6; O2SAT 95
--- NOTE | 2025-09-10 16:38 | WPDGIPROGNO ---
Progress Note: A&P Assessment and Plan (1) Acute colitis: Code(s): K52.9 - Noninfective gastroenteritis and colitis, unspecified Status: Acute Assessment and Plan: stool culture and c diff negative continue medical treatment if tolerating diet then no objections to discharge no need to repeat scopes (2) Nausea & vomiting: Qualifiers: Vomiting type: unspecified Qualified Code(s): R11.2 - Nausea with vomiting, unspecified Code(s): R11.2 - Nausea with vomiting, unspecified Status: Acute (3) Dementia: Code(s): F03.90 - Unspecified dementia, unspecified severity, without behavioral disturbance, psychotic disturbance, mood disturbance, and anxiety Status: Acute (4) Anemia: Qualifiers: Anemia type: iron deficiency Iron deficiency anemia type: chronic blood loss Qualified Code(s): D50.0 - Iron deficiency anemia secondary to blood loss (chronic) Code(s): D64.9 - Anemia, unspecified Status: Acute Assessment and Plan: hgb relatively stable Subjective Date/time seen: 09/10/25 16:38 Interval history: no new events, she is pleasantly confused Review of Systems Review of Systems: All systems reviewed & are unremarkable except as noted in HPI and below Exam Const: General: comfortable and no acute distress HENMT: Face/Nose/Sinus: Normal nares present Eyes: General: appearance normal, both eyes and all related structures Neck: Neck: supple Resp: Auscultation: clear to auscultation bilaterally Cardio: Rate: regular rate Rhythm: regular rhythm GI: Inspection: non-distended GI Palp: Yes Soft to palpation, No Tenderness to palpation present (GI) and No Guarding due to palpation present (GI) Auscultation: normal bowel sounds Skin: General skin exam: normal color Neuro: Speech: normal speech Other: pleasantly confused Extrem: General: normal to inspection Psych: Affect: No Hostile affect present Objective Data Vital Signs Vital Signs: Vital Signs - 24 hr 09/09/25 20:00 09/09/25 22:00 09/10/25 04:06 Temperature 99.1 F 98.6 F Pulse Rate 77 78 Respiratory Rate 20 20 Blood Pressure 135/64 133/68 Pulse Oximetry 95 96 Oxygen Delivery Room Air 09/10/25 06:34 09/10/25 08:00 09/10/25 14:00 Temperature 98.6 F 97.9 F Pulse Rate 78 66 Respiratory Rate 20 20 Blood Pressure 133/68 145/63 H Pulse Oximetry 96 95 Oxygen Delivery Room Air Intake/Output Intake/Output: Intake & Output 09/07/25 09/08/25 09/09/25 09/10/25 23:59 23:59 23:59 23:59 Intake Total 1300 2922.5 740 Output Total 50 Balance 1250 2922.5 740 Meds/Results Medications: Active Medications Generic Name Dose Route Start Last Admin Trade Name Freq PRN Reason Stop Dose Admin Hydrocodone Bitart/Acetaminophen 1 tab 09/09/25 03:49 Hydrocodone/Acetaminophen (*Crx) 5-325 Mg Tablet PO Q4H PRN pain 7-10 Cyanocobalamin 500 mcg 09/09/25 09:00 09/10/25 08:34 Cyanocobalamin 500 Mcg Tablet PO 500 mcg DAILY QI Administration Dicyclomine HCl 20 mg 09/09/25 03:49 Dicyclomine Hcl 10 Mg Capsule PO TID PRN abdominal pain Ferrous Sulfate 325 mg 09/09/25 09:00 09/10/25 08:34 Ferrous Sulfate 325 Mg Tablet BY MOUTH 325 mg DAILY QI Administration Lactated Ringer's 1,000 mls @ 75 mls/hr 09/08/25 20:00 09/09/25 20:04 Lr - Lactated Ringers Iv IV CONT 75 mls/hr .[id number] QI Administration Ceftriaxone Sodium 1 gm/ 50 mls @ 100 mls/hr 09/09/25 05:00 09/10/25 05:16 Sodium Chloride IVPB 100 mls/hr Q24H QI Administration Metronidazole 500 mg in 100 mls @ 100 mls/hr 09/09/25 05:00 09/10/25 13:37 Flagyl 500 Mg/Iso Soln 100 Ml IVPB Infused Q8H QI Infusion Multivitamins Therapeutic 1 tablet 09/09/25 09:00 09/10/25 08:34 Multivitamins Therapeutic Tab (*Bkc) PO 1 tablet DAILY QI Administration Sertraline HCl 12.5 mg 09/09/25 09:00 09/10/25 08:34 Sertraline Hcl 12.5 Mg Tablet PO 12.5 mg DAILY QI Administration Vitamin D 50 mcg 09/09/25 09:00 09/10/25 08:34 Cholecalciferol (Vitamin D3) 25 Mcg (1,000 Units) Tablet PO 50 mcg DAILY QI Administration Radiology Results: ITS Impressions Head CT 09/08/25 11:27 IMPRESSION: 1. No acute intracranial process hemorrhage or large acute ischemic event. 2. Extensive chronic microvascular ischemic appearing white matter changes and probably old lacunar infarctions as above. Abdomen/Pelvis CT 09/08/25 18:35 IMPRESSION: 1. Mucosal and submucosal inflammation of the descending colon, sigmoid colon are noted with mildly distended proximal colon at the cecum. Findings are suggestive of acute colitis, with the differential between infectious and ischemic colitis. 2. Significant calcific atherosclerotic changes of distal abdominal aorta and iliac arteries. Moderate atherosclerotic changes of mesenteric arteries. 3. Severe degenerative disc changes of upper and mid lumbar discs. Labs Labs: Laboratory Results - last 24 hr 09/10/25 05:48 WBC 6.3 RBC 3.73 L Hgb 10.7 L Hct 33.4 L MCV 89.5 MCH 28.7 MCHC 32.0 RDW 13.3 Plt Count 186 MPV 9.8 Immature Gran % (Auto) 0.3 Neut % (Auto) 76.0 H Lymph % (Auto) 16.2 L [place] % (Auto) 6.2 Eos % (Auto) 1.0 Baso % (Auto) 0.3 Lymph # (Auto) 1.02 [place] # (Auto) 0.4 Eos # (Auto) 0.1 Baso # (Auto) 0.0 Abs Immat Gran (auto) 0.02 Absolute Neuts (auto) 4.8 Absolute Nucleated RBC 0.000 Nucleated RBC % 0.0 Sodium 135 L Potassium 3.6 Chloride 103 Carbon Dioxide 30 Anion Gap 2 L BUN 14 D Creatinine 0.81 Estim Creat Clear Calc 41 Estimated GFR > 60 Glucose 106 Calcium 8.5 Total Bilirubin 0.4 AST 25 ALT 17 Alkaline Phosphatase 80 Total Protein 6.0 L Albumin 3.3 L
[2025-09-10] MEDS: LACTATED RINGERS 1,000 ML 75 ML IV CONT (17:35)
[2025-09-10 20:56] VITALS: BP 134/67; PULSE 84; RESP 16; TEMP 36.9; O2SAT 95
[2025-09-11] MEDS: cefTRIAXone 1 GM in SODIUM CHLORIDE 0.9% IV 50 ML 100 ML IVPB (04:17)
[2025-09-11] MEDS: metroNIDAZOLE 500 MG/ISO 100ML 500 MG/100 ML BAG 100 MG IVPB ×2 (04:18→12:16)
[2025-09-11 06:00] VITALS: BP 131/87; PULSE 66; RESP 20; TEMP 36.5; O2SAT 96
[2025-09-11 06:29] LABS: Hematocrit 33.3 % (37.0-47.0); Hemoglobin 10.6 g/dL (12.0-15.0); Immature Granulocyte Percent A 0.2 % (0-0.5); Lymphocytes Absolute Auto 1.05 K/mm3 (0.9-3.2); Mean Corpuscular HGB Conc 31.8 g/dl (32-36); Mean Corpuscular Hemoglobin 28.3 pg (26-34); Mean Corpuscular Volume 88.8 fl (80-100); Nucleated Red Blood Cells Absolute Auto 0.000 K/mm3 (0.0-0.012); Nucleated Red Blood Cells Perc 0.0 % (0.0-0.2); Platelet Count Result 196 k/mm3 (150-375); Red Blood Count 3.75 M/mm3 (4.2-5.4); White Blood Count 4.9 K/mm3 (4.5-10.0)
[2025-09-11 06:52] LABS: Alanine Aminotransferase 16 U/L (6-35); Albumin Level 3.2 g/dL (3.5-5.1); Alkaline Phosphatase 78 U/L (38-126); Anion Gap 4 mmol/L (4-12); Aspartate Amino Transferase 27 U/L (14-36); Bilirubin,Total 0.3 mg/dL (0.2-1.3); Blood Urea Nitrogen 17 mg/dL (7-17); Calcium 8.6 mg/dL (8.4-10.2); Carbon Dioxide 27 mmol/L (22-30); Chloride 106 mmol/L (98-107); Estimated CRCL calculation 39 ml/min; Estimated Glomerular Filt Rate > 60; Glucose 102 mg/dL (65-110); Potassium 3.8 mmol/L (3.4-5.0); Sodium 137 mmol/L (137-145); Total Protein 6.0 g/dL (6.3-8.2)
[2025-09-11] MEDS: FERROUS SULFATE 325 MG TABLET BY MOUTH (08:35)
[2025-09-11] MEDS: MULTIVITAMINS THERAPEUTIC TAB (*BKC) 1 TABLET PO (08:36)
[2025-09-11] MEDS: CYANOCOBALAMIN 500 MCG TABLET PO (08:36)
[2025-09-11] MEDS: CHOLECALCIFEROL (VITAMIN D3) 25 MCG (1,000 UNITS) TABLET 50 MCG PO (08:36)
[2025-09-11] MEDS: SERTRALINE HCL 12.5 MG TABLET PO (08:36)
--- NOTE | 2025-09-11 11:49 | PM.DS ---
DS: Admitting Diagnosis Discharge Date 09/11/2025 Admitting Diagnosis Acute colitis nausea and vomiting altered mental status anemia DS: Discharge Diagnosis Discharge Diagnosis (1) Acute colitis: Code(s): K52.9 - Noninfective gastroenteritis and colitis, unspecified Status: Acute (2) Nausea & vomiting: Qualifiers: Vomiting type: unspecified Qualified Code(s): R11.2 - Nausea with vomiting, unspecified Code(s): R11.2 - Nausea with vomiting, unspecified Status: Acute (3) Altered mental status: Qualifiers: Altered mental status type: transient alteration of awareness Qualified Code(s): R40.4 - Transient alteration of awareness Code(s): R41.82 - Altered mental status, unspecified Status: Acute (4) Anemia: Qualifiers: Anemia type: iron deficiency Iron deficiency anemia type: chronic blood loss Qualified Code(s): D50.0 - Iron deficiency anemia secondary to blood loss (chronic) Code(s): D64.9 - Anemia, unspecified Status: Acute DS: Summary Hospital Course Reason for hospitalization: nausea and vomiting Hospital Course: The patient is a 75-year-old female with a history of dementia, diverticulosis, hiatal hernia with esophageal ring, chronic constipation, iron deficiency anemia, hypertension, diabetes, and hyperlipidemia, who presented from her senior care with acute onset of nausea, vomiting, bowel incontinence, and a transient episode of unresponsiveness. On arrival to the ED, she was awake and conversant but had another episode of emesis and subsequently passed a large mucousy, bloody bowel movement while awaiting discharge. Initial labs were notable for a drop in hemoglobin from her baseline, and CT abdomen/pelvis revealed mucosal and submucosal inflammation of the descending and sigmoid colon, consistent with acute colitis. C. difficile PCR was negative, and stool cultures were obtained. She was started on empiric IV ciprofloxacin and metronidazole, later transitioned to IV ceftriaxone and metronidazole per stewardship guidelines. Her mental status was noted to be at her baseline of pleasant confusion, with transient worsening likely related to her acute illness and vasovagal episode. Hemoglobin remained stable during admission, and she continued her home iron supplementation. She tolerated a diet, had some further episodes of hematochezia (small, expected per GI with colitis), and remained hemodynamically stable. GI was consulted and recommended continued medical management without need for repeat endoscopy. She was transitioned to oral antibiotics prior to discharge. Physical and occupational therapy were consulted for functional assessment. She was discharged back to her nursing facility in stable condition, with instructions to complete her antibiotic course, continue home medications, and follow up with her primary care provider. Time Spent with Patient Time attestation: Total time spent providing and/or coordinating discharge services: 35 Minutes Exam Const: General: comfortable and no acute distress HENMT: Face/Nose/Sinus: Normal nares present Mouth: Yes moist mucous membranes Eyes: General: appearance normal, both eyes and all related structures Sclera: sclerae normal Neck: Neck: supple Resp: Effort & Inspection: normal respiratory effort Auscultation: clear to auscultation bilaterally Cardio: Rate: regular rate Rhythm: regular rhythm GI: Auscultation: normal bowel sounds Skin: General skin exam: normal color and no rashes or lesions noted Neuro: Speech: normal speech Motor exam (neuro): 5/5 motor strength present throughout Sensory Exam: normal sensation Extrem: General: normal to inspection Psych: Affect: normal affect Other: oriented x 2, dementia DS: Data Data Completed and Pending Labs on day of discharge: Labs from last 24 hours 09/11/25 06:06 WBC 4.9 RBC 3.75 L Hgb 10.6 L Hct 33.3 L MCV 88.8 MCH 28.3 MCHC 31.8 L RDW 13.3 Plt Count 196 MPV 9.7 Immature Gran % (Auto) 0.2 Neut % (Auto) 68.3 Lymph % (Auto) 21.4 [place] % (Auto) 7.3 Eos % (Auto) 2.2 Baso % (Auto) 0.6 Lymph # (Auto) 1.05 [place] # (Auto) 0.4 Eos # (Auto) 0.1 Baso # (Auto) 0.0 Abs Immat Gran (auto) 0.01 Absolute Neuts (auto) 3.3 Absolute Nucleated RBC 0.000 Nucleated RBC % 0.0 Sodium 137 Potassium 3.8 Chloride 106 Carbon Dioxide 27 Anion Gap 4 BUN 17 Creatinine 0.86 Estim Creat Clear Calc 39 Estimated GFR > 60 Glucose 102 Calcium 8.6 Total Bilirubin 0.3 AST 27 ALT 16 Alkaline Phosphatase 78 Total Protein 6.0 L Albumin 3.2 L Imaging Radiologist's impression: Ordering Physician: Maryam Roach PA-C Date of Service: 09/08/25 Procedure(s): CT brain wo con Accession Number(s): [id number] cc: Maryam Roach PA-C~ EXAMINATION: CT brain wo con DATE: 09/08/2025 11:23 INDICATION: Altered mental status TECHNIQUE: Computed tomography (CT) of the head was performed without intravenous contrast. The dose-length product was 681.00 mGy-cm. COMPARISON: None FINDINGS: No gross intracranial mass effect or hemorrhage. No large acute ischemic event. Advanced chronic appearing microvascular ischemic appearing white matter changes. Probably old lacunar infarctions in the pontine portion of the brainstem, and in the left basal ganglia region. Extensive vascular calcifications. Paranasal periorbital and calvarial structures unremarkable. IMPRESSION: 1. No acute intracranial process hemorrhage or large acute ischemic event. 2. Extensive chronic microvascular ischemic appearing white matter changes and probably old lacunar infarctions as above. Reviewed, dictated and finalized at location [facility] Ordering Physician: Leela Forte MD Date of Service: 09/08/25 Procedure(s): CT abdomen pelvis w con Accession Number(s): [id number] cc: Leela Forte MD~ EXAMINATION: CT abdomen pelvis w con DATE: 09/08/2025 18:34 INDICATION: Abdominal pain. TECHNIQUE: Computed tomography (CT) of the abdomen and pelvis was performed 100 cc intravenous contrast. Automated exposure control and iterative reconstruction technique were employed. The dose-length product was 427.27 mGy-cm. COMPARISON: Ultrasound dated 05/17/2025 CT dated 05/16/2025 FINDINGS: Lung bases do not show acute findings. No focal lesions of liver and spleen. Gallbladder is surgically absent. Common bile duct measures 5 mm. Portal vein and hepatic veins are patent. No calculi are obstruction of the kidneys. No evidence of small bowel obstruction. Moderate atherosclerotic changes of superior mesenteric artery. Severe atherosclerotic changes of proximal iliac arteries. CT abdomen and proximal ascending colon are mildly distended up to 8 cm in diameter without focal bowel wall thickening. Appendix is not distinctly visible. Significant mucosal edema and submucosal edema of the descending colon and sigmoid colon are noted. No free fluid or free air. Mild atherosclerotic changes of superior mesenteric artery. Severe degenerative disc disease of upper and mid lumbar discs. IMPRESSION: 1. Mucosal and submucosal inflammation of the descending colon, sigmoid colon are noted with mildly distended proximal colon at the cecum. Findings are suggestive of acute colitis, with the differential between infectious and ischemic colitis. 2. Significant calcific atherosclerotic changes of distal abdominal aorta and iliac arteries. Moderate atherosclerotic changes of mesenteric arteries. 3. Severe degenerative disc changes of upper and mid lumbar discs. Reviewed, dictated and finalized at location [facility] Discharge Plan Discharge Attending physician on discharge: Joey Molina Discharging Clinician: Chica Ruelas Patient Disposition: [facility] Retirement/Asst Living Activity: as tolerated Diet: as tolerated Discharge Instructions: Please complete all antibiotics even if you are feeling better. Please check a CBC and CMP on Saturday09/17/2025. Patient Instructions: Antibiotic Form Patient Language: Khmer Stand Alone Forms: General Discharge Information, Senior Care Discharge Follow-up/Referrals: Greta,Woody [Other] Referral Note: Follow up with your PCP within 1 week of discharge from the hospital. Discharge Medications: New amoxicillin-pot clavulanate 875-125 mg tablet 1 tablet PO Q12H Qty: 9 0RF Rx Instructions: first dose 09/11 at 2100 Continued acetaminophen 650 mg tablet extended release 650 mg PO Q6H PRN (Reason: pain) bisacodyl 10 mg suppository 10 mg RECTAL DAILY PRN (Reason: Constipation) ferrous sulfate 325 mg (65 mg iron) tablet 325 mg PO DAILY Fleet Bisacodyl 10 mg/30 mL enema 5 mg RECTAL DAILY PRN (Reason: Constipation) Patient Comments: if no results 1 day after suppository. lisinopril 10 mg tablet 10 mg PO DAILY magnesium hydroxide [Milk of Magnesia] 400 mg/5 mL suspension 30 ml PO DAILY PRN (Reason: Constipation) Patient Comments: if no BM in 3 days multivitamin Tablet 1 tablet PO DAILY polyethylene glycol 3350 17 gram/dose powder 17 g PO DAILY PRN (Reason: constipation) senna 8.6 mg capsule 8.6 mg PO DAILY PRN (Reason: constipation) cholecalciferol (vitamin D3) 10 mcg (400 unit) capsule 2,000 unit PO DAILY cyanocobalamin (vitamin B-12) 1,000 mcg capsule 500 mcg PO DAILY sertraline 25 mg tablet 12.5 mg PO DAILY ondansetron 4 mg tablet,disintegrating 4 mg PO Q6-8H PRN (Reason: nausea and vomiting) hydrocodone-acetaminophen 5-325 mg tablet 1 tablet PO Q4H PRN (Reason: pain) Qty: 10 0RF hydralazine 25 mg tablet 25 mg PO TID PRN (Reason: hypertension) Patient Comments: sbp > 160 atorvastatin 10 mg tablet 10 mg PO HS magnesium citrate [Citroma] Solution 300 ml PO DAILY PRN (Reason: Constipation) dicyclomine 20 mg tablet 20 mg PO TID PRN (Reason: abdominal pain) Qty: 14 0RF Date of admission: 09/09/25 17:00 Primary Care Provider: Greta,Woody Admitting Provider: Linda Birch Attending physician on admission: Linda Birch Condition: Stable Quality VTE Prophylaxis VTE prophylaxis: mechanical ordered
--- NOTE | 2025-09-13 08:49 | PC.NURSE ---
Stool cx is negative.
--- NOTE | 2025-09-17 08:34 | PC.NURSE ---
Blood cx show no growth.
== END 2025-09-11 15:59 | DRG 392 ==
LOC: ANHED 13:13 → ANH3MEDSUR 20:42
PROVIDERS: Emergency Medicine; Physician Assistant; Admitting Provider Internal Medicine; Emergency Provider Emergency Medicine; Visit Provider Nurse Practitioner Adult Health
DX: K52.9 Noninfective gastroenteritis and colitis, unspecified (principal); K92.1 Melena; D50.9 Iron deficiency anemia, unspecified; R55 Syncope and collapse; F03.90 Unspecified dementia, unspecified severity, without behavioral disturbance, psychotic disturbance, mood disturbance, and anxiety; K57.90 Diverticulosis of intestine, part unspecified, without perforation or abscess without bleeding; K44.9 Diaphragmatic hernia without obstruction or gangrene; E78.5 Hyperlipidemia, unspecified; F32.A Depression, unspecified; E11.9 Type 2 diabetes mellitus without complications; I10 Essential (primary) hypertension; Z90.49 Acquired absence of other specified parts of digestive tract; Z87.891 Personal history of nicotine dependence
CPT/HCPCS: 36415; 70450; 74177; 80048; 80053; 81001; 83605; 85014; 85018; 85025; 85027; 85610; 85730; 86850; 86900; 86901; 87040; 87045; 87046; 87427; 87493; 93005; 96361; 96365; 96367; 96375; 99285; A9270; G0378; J0696; J0744; J1836; J2405; J7120; Q9967